=== PATIENT | male | born 1985 | race Two or more races ===

== ENCOUNTER 2017-08-22 19:02 | Inpatient (IN) | payer MEDICAID, OTHER ==
[~2017-08-22] VITALS: Ht 170.2 cm; Wt 118.0 kg
[2017-08-22] MEDS ORDERED: ONDANSETRON 2MG/ML, 2ML ONE (19:23)
[2017-08-22] MEDS ORDERED: FAMOTIDINE 20 MG/2 ML ONE (19:23)
[2017-08-22] MEDS ORDERED: FAMOTIDINE 20 MG/2 ML IVP ONE (19:30)
[2017-08-22] MEDS ORDERED: LORazepam 2 MG/ML, 1ML IVPush ONE ×2 (19:30→21:30)
[2017-08-22] MEDS ORDERED: SODIUM CHLORIDE 0.9% 1,000ML IVBOLUS ONE ×2 (19:30→22:00)
[2017-08-22] MEDS ORDERED: ONDANSETRON 2MG/ML, 2ML IVPush ONE (19:30)
[2017-08-22] MEDS ORDERED: SODIUM CHLORIDE FLUSH 10ML SYR IVF ONE (19:30)
[2017-08-22 19:36] LABS: HEMATOCRIT 36.9 % (39.2-51.8); HEMOGLOBIN 12.4 g/dL (13.7-18.0); WHITE BLOOD COUNT 20.3 x10^3/uL (3.4-10)
[2017-08-22] MEDS ORDERED: LORazepam 2 MG/ML, 1ML ONE ×2 (19:42→22:45)
[2017-08-22 19:46] LABS: ASPARTATE AMINO TRANSFERASE 104 U/L (15-37); BLOOD UREA NITROGEN 7 mg/dL (7-18)
[2017-08-22] MEDS ORDERED: ACETAMINOPHEN 500 MG TABLET ONE (21:21)
[2017-08-22] MEDS ORDERED: LIDOCAINE 1%, 20ML ONE (21:29)
[2017-08-22] MEDS ORDERED: LIDOCAINE 1%, 20ML SQ ONE (21:30)
[2017-08-22] MEDS ORDERED: CEFTRIAXONE PMX 2GM/50ML 50 ML IV ONE (21:30)
[2017-08-22] MEDS ORDERED: ACETAMINOPHEN 500 MG TABLET PO ONE (21:30)
[2017-08-22] MEDS ORDERED: AZITHROMYCIN 500 MG in SODIUM CHLORIDE 0.9% 250 ML IV ONE (21:30)
[2017-08-22] MEDS ORDERED: METRONIDAZOLE PMX 500MG/100ML 100 ML IV ONE (21:30)
[2017-08-22] MEDS ORDERED: ACETAMINOPHEN 325 MG TABLET PO ONE (21:30)
[2017-08-22] MEDS ORDERED: CEFTRIAXONE PMX 2GM/50ML 50 ML ONE (21:33)
[2017-08-22] MEDS ORDERED: OMNIPAQUE 350 MG/ML, 100ML BOTTLE ONE (21:40)
[2017-08-22 22:04] LABS: IS PT STATUS REG ER OR PRE ER? YES
[2017-08-22] MEDS ORDERED: METRONIDAZOLE PMX 500MG/100ML 100 ML ONE (22:26)
[2017-08-22] MEDS: POTASSIUM CHLORIDE 20 MEQ, MAGNESIUM SULFATE 2 GM, THIAMINE 100 MG, MVI ADULT 10 ML, FO... IV SCH (22:41)
[2017-08-22] MEDS ORDERED: LACTATED RINGERS 1,000 ML IV SCH (23:00)
[2017-08-22] MEDS ORDERED: HYDROmorphone 2 MG/ML, 1ML IVPush PRN (23:00)
[2017-08-22] MEDS: HEPARIN 5,000 UNITS/ML, 1ML SQ SCH (23:00)
[2017-08-22] MEDS ORDERED: ONDANSETRON 2MG/ML, 2ML IVPush PRN (23:00)
[2017-08-22] MEDS ORDERED: DIAZEPAM 5 MG/ML, 2ML IV ONE (23:00)
[2017-08-22] MEDS ORDERED: LORazepam 2 MG/ML, 1ML IV PRN ×4 (23:00)
[2017-08-22] MEDS ORDERED: LEVOFLOXACIN/PMX 750MG/150ML 150 ML IV SCH (23:00)
[2017-08-22] MEDS: D5%-0.9% NACL 1,000 ML IV SCH (23:00)
[2017-08-23 02:10] VITALS: BP 141/94
[2017-08-23] MEDS ORDERED: LORazepam 1MG TABLET PO PRN (04:00)
[2017-08-23] MEDS: ACETAMINOPHEN 325 MG TABLET PO PRN ×3 (04:43→16:05)
[2017-08-23 05:57] LABS: HEMATOCRIT 33.1 % (39.2-51.8); HEMOGLOBIN 11.1 g/dL (13.7-18.0); WHITE BLOOD COUNT 17.8 x10^3/uL (3.4-10)
[2017-08-23 06:07] LABS: BLOOD UREA NITROGEN 8 mg/dL (7-18)
[2017-08-23 06:19] LABS: DIFF TOTAL CELLS COUNTED 100 CELL DIFF
[2017-08-23 06:21] LABS: ANISOCYTOSIS 1+; VERIFY COUNTS? YES
[2017-08-23 06:24] LABS: ASPARTATE AMINO TRANSFERASE 86 U/L (15-37)
[2017-08-23 07:25] VITALS: BP 123/70
[2017-08-23 07:58] LABS: RAPID INFLUENZA A Negative (Negative); RAPID INFLUENZA B Negative (Negative)
[2017-08-23] MEDS ORDERED: LIDOCAINE 2%, 20ML ONE (08:02)
[2017-08-23] MEDS: HEPARIN 5,000 UNITS/ML, 1ML SQ SCH ×2 (09:27→17:14)
[2017-08-23] MEDS: D5%-0.9% NACL 1,000 ML IV SCH (14:06)
[2017-08-23 14:10] VITALS: BP 127/73
[2017-08-23] MEDS ORDERED: MAGNESIUM SULFATE PMX 4GM/100M 100 ML IV ONE ×2 (15:30→19:30)
[2017-08-23] MEDS ORDERED: VANCOMYCIN PER PHARMACY MC PRN (15:30)
[2017-08-23] MEDS ORDERED: PHARMACOKINETIC MONITORING MC PRN (15:30)
[2017-08-23 16:04] LABS: CYTOLOGY BODY FLUID RECD INTO PATHOLOGY; CYTOLOGY BODY FLUID SOURCE ASCITES FLUID
[2017-08-23] MEDS: CEFTRIAXONE PMX 2GM/50ML 50 ML IV SCH (16:06)
[2017-08-23] MEDS: VANCOMYCIN 2,000 MG in SODIUM CHLORIDE 0.9% 500 ML IV SCH (17:08)
[2017-08-23 20:00] VITALS: BP 132/92
[2017-08-23] MEDS: LACTULOSE 20 GM/30 ML UDC PO SCH (20:08)
[2017-08-24 02:00] VITALS: BP 126/64
[2017-08-24] MEDS: HEPARIN 5,000 UNITS/ML, 1ML SQ SCH ×3 (02:08→17:54)
[2017-08-24] MEDS: POTASSIUM CHLORIDE 20 MEQ, MAGNESIUM SULFATE 2 GM, THIAMINE 100 MG, MVI ADULT 10 ML, FO... IV SCH (02:08)
[2017-08-24] MEDS: VANCOMYCIN 2,000 MG in SODIUM CHLORIDE 0.9% 500 ML IV SCH ×2 (04:41→16:25)
[2017-08-24 05:00] LABS: HEMATOCRIT 30.6 % (39.2-51.8); HEMOGLOBIN 10.3 g/dL (13.7-18.0); WHITE BLOOD COUNT 11.3 x10^3/uL (3.4-10)
[2017-08-24 05:09] LABS: ASPARTATE AMINO TRANSFERASE 52 U/L (15-37); BLOOD UREA NITROGEN 13 mg/dL (7-18)
[2017-08-24 07:58] VITALS: BP 144/79
[2017-08-24] MEDS: LACTULOSE 20 GM/30 ML UDC PO SCH ×2 (09:00→20:29)
[2017-08-24] MEDS: PHYTONADIONE 5 MG TABLET PO SCH (10:39)
[2017-08-24 12:37] VITALS: BP 147/80
[2017-08-24] MEDS: CEFTRIAXONE PMX 2GM/50ML 50 ML IV SCH (15:29)
[2017-08-24 19:02] VITALS: BP 127/77
[2017-08-24] MEDS: SPIRONOLACTONE 50 MG TABLET PO SCH (20:30)
[2017-08-25] MEDS: HEPARIN 5,000 UNITS/ML, 1ML SQ SCH ×3 (01:00→17:49)
[2017-08-25 01:11] VITALS: BP 133/89
[2017-08-25] MEDS: VANCOMYCIN 2,000 MG in SODIUM CHLORIDE 0.9% 500 ML IV SCH (04:35)
[2017-08-25 04:54] LABS: HEMATOCRIT 32.5 % (39.2-51.8); HEMOGLOBIN 10.9 g/dL (13.7-18.0); WHITE BLOOD COUNT 9.8 x10^3/uL (3.4-10)
[2017-08-25 05:10] LABS: ASPARTATE AMINO TRANSFERASE 55 U/L (15-37); BLOOD UREA NITROGEN 13 mg/dL (7-18)
[2017-08-25 07:46] VITALS: BP 139/87
[2017-08-25] MEDS: SPIRONOLACTONE 50 MG TABLET PO SCH ×2 (08:11→19:47)
[2017-08-25] MEDS: THIAMINE 100MG TABLET PO SCH (08:11)
[2017-08-25] MEDS: PHYTONADIONE 5 MG TABLET PO SCH (08:11)
[2017-08-25] MEDS: LACTULOSE 20 GM/30 ML UDC PO SCH ×2 (08:12→19:47)
[2017-08-25] MEDS: FOLIC ACID 1 MG TABLET PO SCH (08:12)
[2017-08-25] MEDS: CEFAZOLIN PMX 2GM/50ML 50 ML IVPB SCH ×2 (11:17→19:47)
[2017-08-25 14:11] VITALS: BP 139/87
[2017-08-25] MEDS ORDERED: OMNIPAQUE 350 MG/ML, 100ML BOTTLE ONE (14:26)
[2017-08-25 19:40] VITALS: BP 133/84
[2017-08-26] MEDS: HEPARIN 5,000 UNITS/ML, 1ML SQ SCH ×3 (01:37→17:58)
[2017-08-26 02:00] VITALS: BP 139/87
[2017-08-26] MEDS: CEFAZOLIN PMX 2GM/50ML 50 ML IVPB SCH (04:06)
[2017-08-26] MEDS: SPIRONOLACTONE 50 MG TABLET PO SCH ×2 (09:00→20:44)
[2017-08-26] MEDS: PHYTONADIONE 5 MG TABLET PO SCH (09:16)
[2017-08-26] MEDS: THIAMINE 100MG TABLET PO SCH (09:16)
[2017-08-26] MEDS: LACTULOSE 20 GM/30 ML UDC PO SCH ×2 (09:16→20:55)
[2017-08-26] MEDS: FOLIC ACID 1 MG TABLET PO SCH (09:16)
[2017-08-26 09:51] VITALS: BP 135/90
[2017-08-26] MEDS: CEFAZOLIN PMX 2GM/50ML 50 ML IV SCH ×2 (13:28→20:44)
[2017-08-26 16:07] VITALS: BP 171/96
[2017-08-26 16:16] VITALS: BP 154/98
[2017-08-26] MEDS: GUAIFENESIN 200 MG TABLET PO SCH ×2 (17:58→20:44)
[2017-08-26 20:00] VITALS: BP 143/88
[2017-08-27] MEDS: HEPARIN 5,000 UNITS/ML, 1ML SQ SCH ×3 (01:27→18:10)
[2017-08-27 01:28] VITALS: BP 149/73
[2017-08-27] MEDS: GUAIFENESIN 200 MG TABLET PO SCH ×4 (05:14→21:06)
[2017-08-27] MEDS: CEFAZOLIN PMX 2GM/50ML 50 ML IV SCH ×3 (05:14→21:06)
[2017-08-27 05:43] LABS: HEMATOCRIT 32.2 % (39.2-51.8); HEMOGLOBIN 10.8 g/dL (13.7-18.0); WHITE BLOOD COUNT 7.2 x10^3/uL (3.4-10)
[2017-08-27 06:03] LABS: ASPARTATE AMINO TRANSFERASE 70 U/L (15-37); BLOOD UREA NITROGEN 10 mg/dL (7-18)
[2017-08-27 07:03] VITALS: BP 151/97
[2017-08-27] MEDS ORDERED: POTASSIUM CHLORIDE 20 MEQ TAB.ER.PRT PO ONE (08:30)
[2017-08-27] MEDS: SPIRONOLACTONE 50 MG TABLET PO SCH ×2 (09:00→21:00)
[2017-08-27] MEDS: LACTULOSE 20 GM/30 ML UDC PO SCH ×2 (09:28→21:07)
[2017-08-27] MEDS: THIAMINE 100MG TABLET PO SCH (09:28)
[2017-08-27] MEDS: FOLIC ACID 1 MG TABLET PO SCH (09:28)
[2017-08-27 12:57] VITALS: BP 151/92
[2017-08-27 19:40] VITALS: BP 151/100
[2017-08-27 19:59] VITALS: BP 145/90
[2017-08-28] MEDS: HEPARIN 5,000 UNITS/ML, 1ML SQ SCH ×3 (02:05→17:17)
[2017-08-28 02:34] VITALS: BP 119/70
[2017-08-28] MEDS: CEFAZOLIN PMX 2GM/50ML 50 ML IV SCH ×3 (05:30→21:22)
[2017-08-28] MEDS: GUAIFENESIN 200 MG TABLET PO SCH ×4 (05:34→21:21)
[2017-08-28 05:39] LABS: BLOOD UREA NITROGEN 8 mg/dL (7-18)
[2017-08-28] MEDS ORDERED: MAGNESIUM SULFATE PMX 2GM/50ML 50 ML IV ONE (07:00)
[2017-08-28 07:47] VITALS: BP 136/89
[2017-08-28] MEDS: FUROSEMIDE 40 MG TABLET PO SCH (07:56)
[2017-08-28] MEDS: FOLIC ACID 1 MG TABLET PO SCH (07:56)
[2017-08-28] MEDS: THIAMINE 100MG TABLET PO SCH (07:56)
[2017-08-28] MEDS: LACTULOSE 20 GM/30 ML UDC PO SCH ×2 (07:57→21:21)
[2017-08-28] MEDS: SPIRONOLACTONE 50 MG TABLET PO SCH ×2 (07:58→21:00)
[2017-08-28 12:42] VITALS: BP 149/79
[2017-08-28 20:00] VITALS: BP 150/91
[2017-08-29 02:00] VITALS: BP 135/71
[2017-08-29] MEDS: GUAIFENESIN 200 MG TABLET PO SCH ×4 (05:03→22:32)
[2017-08-29] MEDS: CEFAZOLIN PMX 2GM/50ML 50 ML IV SCH ×3 (05:03→22:33)
[2017-08-29] MEDS: HEPARIN 5,000 UNITS/ML, 1ML SQ SCH ×3 (05:03→22:33)
[2017-08-29 07:49] VITALS: BP 133/83
[2017-08-29] MEDS: SPIRONOLACTONE 50 MG TABLET PO SCH ×2 (09:00→22:33)
[2017-08-29 09:03] LABS: ASPARTATE AMINO TRANSFERASE 81 U/L (15-37); BLOOD UREA NITROGEN 7 mg/dL (7-18)
[2017-08-29] MEDS: THIAMINE 100MG TABLET PO SCH (09:53)
[2017-08-29] MEDS: FOLIC ACID 1 MG TABLET PO SCH (09:53)
[2017-08-29] MEDS: LACTULOSE 20 GM/30 ML UDC PO SCH ×2 (09:54→22:32)
[2017-08-29] MEDS: FUROSEMIDE 40 MG TABLET PO SCH (09:54)
[2017-08-29 14:00] VITALS: BP 167/103
[2017-08-30 02:45] VITALS: BP 136/66
[2017-08-30 05:21] LABS: HEMATOCRIT 32.7 % (39.2-51.8)
[2017-08-30 05:29] LABS: ASPARTATE AMINO TRANSFERASE 76 U/L (15-37); BLOOD UREA NITROGEN 7 mg/dL (7-18)
[2017-08-30] MEDS: HEPARIN 5,000 UNITS/ML, 1ML SQ SCH ×3 (05:36→21:14)
[2017-08-30] MEDS: CEFAZOLIN PMX 2GM/50ML 50 ML IV SCH ×3 (05:36→21:14)
[2017-08-30] MEDS: GUAIFENESIN 200 MG TABLET PO SCH ×4 (05:36→21:14)
[2017-08-30 08:00] VITALS: BP 147/91
[2017-08-30] MEDS: FOLIC ACID 1 MG TABLET PO SCH (10:08)
[2017-08-30] MEDS: LACTULOSE 20 GM/30 ML UDC PO SCH ×2 (10:08→21:14)
[2017-08-30] MEDS: FUROSEMIDE 40 MG TABLET PO SCH (10:08)
[2017-08-30] MEDS: THIAMINE 100MG TABLET PO SCH (10:09)
[2017-08-30] MEDS: SPIRONOLACTONE 50 MG TABLET PO SCH ×2 (10:09→21:00)
[2017-08-30 14:00] VITALS: BP 140/90
[2017-08-30 20:15] VITALS: BP 135/86
[2017-08-31 00:48] VITALS: BP 151/91
[2017-08-31] MEDS: GUAIFENESIN 200 MG TABLET PO SCH ×4 (04:59→21:06)
[2017-08-31] MEDS: CEFAZOLIN PMX 2GM/50ML 50 ML IV SCH ×3 (04:59→21:06)
[2017-08-31] MEDS: HEPARIN 5,000 UNITS/ML, 1ML SQ SCH ×3 (04:59→21:00)
[2017-08-31 06:21] LABS: HEMATOCRIT 32.1 % (39.2-51.8); HEMOGLOBIN 10.7 g/dL (13.7-18.0); WHITE BLOOD COUNT 8.3 x10^3/uL (3.4-10)
[2017-08-31 06:34] LABS: ASPARTATE AMINO TRANSFERASE 68 U/L (15-37); BLOOD UREA NITROGEN 7 mg/dL (7-18)
[2017-08-31 08:30] VITALS: BP 137/80
[2017-08-31] MEDS ORDERED: POTASSIUM CHLORIDE 20 MEQ TAB.ER.PRT PO ONE (08:30)
[2017-08-31] MEDS: FOLIC ACID 1 MG TABLET PO SCH (08:38)
[2017-08-31] MEDS: THIAMINE 100MG TABLET PO SCH (08:38)
[2017-08-31] MEDS: LACTULOSE 20 GM/30 ML UDC PO SCH ×2 (08:38→21:00)
[2017-08-31] MEDS: FUROSEMIDE 40 MG TABLET PO SCH (08:39)
[2017-08-31] MEDS: SPIRONOLACTONE 50 MG TABLET PO SCH ×2 (08:39→21:00)
[2017-08-31] MEDS ORDERED: MAGNESIUM SULFATE PMX 4GM/100M 100 ML IV ONE (13:00)
[2017-08-31 14:45] VITALS: BP 148/84
[2017-08-31 19:23] VITALS: BP 150/92
[2017-09-01] MEDS: HEPARIN 5,000 UNITS/ML, 1ML SQ SCH ×3 (05:00→20:16)
[2017-09-01 05:34] LABS: BLOOD UREA NITROGEN 7 mg/dL (7-18)
[2017-09-01 05:37] VITALS: BP 136/87
[2017-09-01] MEDS: GUAIFENESIN 200 MG TABLET PO SCH ×4 (06:02→20:17)
[2017-09-01] MEDS: CEFAZOLIN PMX 2GM/50ML 50 ML IV SCH ×3 (06:03→20:16)
[2017-09-01 07:27] VITALS: BP 145/79
[2017-09-01] MEDS: SPIRONOLACTONE 50 MG TABLET PO SCH ×2 (09:00→20:17)
[2017-09-01] MEDS: FUROSEMIDE 40 MG TABLET PO SCH (09:29)
[2017-09-01] MEDS: THIAMINE 100MG TABLET PO SCH (09:29)
[2017-09-01] MEDS: LACTULOSE 20 GM/30 ML UDC PO SCH ×2 (09:29→20:16)
[2017-09-01] MEDS: FOLIC ACID 1 MG TABLET PO SCH (09:29)
[2017-09-01 10:46] LABS: PATH.CAST-FLAG NOT PRESENT; SPERM-FLAG NOT PRESENT; SRC-FLAG NOT PRESENT; XTAL-FLAG NOT PRESENT; YLC-FLAG NOT PRESENT
[2017-09-01 13:31] VITALS: BP 133/83
[2017-09-01 19:35] VITALS: BP 138/85
[2017-09-02 03:59] VITALS: BP 123/83
[2017-09-02] MEDS: GUAIFENESIN 200 MG TABLET PO SCH ×4 (05:33→21:17)
[2017-09-02] MEDS: HEPARIN 5,000 UNITS/ML, 1ML SQ SCH ×3 (05:33→21:18)
[2017-09-02] MEDS: CEFAZOLIN PMX 2GM/50ML 50 ML IV SCH ×3 (05:33→21:21)
[2017-09-02 06:45] VITALS: BP 138/83
[2017-09-02] MEDS: SPIRONOLACTONE 50 MG TABLET PO SCH ×2 (09:00→21:17)
[2017-09-02] MEDS: FOLIC ACID 1 MG TABLET PO SCH (10:22)
[2017-09-02] MEDS: FUROSEMIDE 40 MG TABLET PO SCH (10:22)
[2017-09-02] MEDS: THIAMINE 100MG TABLET PO SCH (10:23)
[2017-09-02] MEDS: LACTULOSE 20 GM/30 ML UDC PO SCH ×2 (10:24→21:16)
[2017-09-02 12:20] VITALS: BP 123/84
[2017-09-02 21:34] VITALS: BP 139/82
[2017-09-03 04:00] VITALS: BP 140/71
[2017-09-03] MEDS: HEPARIN 5,000 UNITS/ML, 1ML SQ SCH ×3 (05:35→22:57)
[2017-09-03] MEDS: GUAIFENESIN 200 MG TABLET PO SCH ×4 (05:35→22:56)
[2017-09-03] MEDS: CEFAZOLIN PMX 2GM/50ML 50 ML IV SCH ×3 (05:36→22:55)
[2017-09-03 08:34] VITALS: BP 145/84
[2017-09-03] MEDS: SPIRONOLACTONE 50 MG TABLET PO SCH ×2 (09:00→22:00)
[2017-09-03] MEDS: FUROSEMIDE 40 MG TABLET PO SCH (09:56)
[2017-09-03] MEDS: THIAMINE 100MG TABLET PO SCH (09:56)
[2017-09-03] MEDS: LACTULOSE 20 GM/30 ML UDC PO SCH ×2 (09:56→22:57)
[2017-09-03] MEDS: FOLIC ACID 1 MG TABLET PO SCH (09:56)
[2017-09-03 14:57] VITALS: BP 142/91
[2017-09-03 21:38] VITALS: BP 135/82
[2017-09-04 02:31] VITALS: BP 154/85
[2017-09-04] MEDS: GUAIFENESIN 200 MG TABLET PO SCH ×4 (05:05→22:31)
[2017-09-04 05:24] LABS: HEMATOCRIT 33.5 % (39.2-51.8); HEMOGLOBIN 11.1 g/dL (13.7-18.0); WHITE BLOOD COUNT 11.2 x10^3/uL (3.4-10)
[2017-09-04 05:41] LABS: ASPARTATE AMINO TRANSFERASE 67 U/L (15-37); BLOOD UREA NITROGEN 7 mg/dL (7-18)
[2017-09-04 07:05] VITALS: BP 128/65
[2017-09-04] MEDS: CEFAZOLIN PMX 2GM/50ML 50 ML IV SCH ×3 (07:38→23:14)
[2017-09-04] MEDS: HEPARIN 5,000 UNITS/ML, 1ML SQ SCH ×3 (07:38→23:00)
[2017-09-04] MEDS: FUROSEMIDE 40 MG TABLET PO SCH (07:38)
[2017-09-04] MEDS: FOLIC ACID 1 MG TABLET PO SCH (08:31)
[2017-09-04] MEDS: SPIRONOLACTONE 50 MG TABLET PO SCH ×2 (08:31→22:31)
[2017-09-04] MEDS: THIAMINE 100MG TABLET PO SCH (08:31)
[2017-09-04] MEDS: LACTULOSE 20 GM/30 ML UDC PO SCH ×2 (08:31→22:31)
[2017-09-04 14:35] VITALS: BP 144/86
[2017-09-04 19:09] VITALS: BP 144/88
[2017-09-05 01:02] VITALS: BP 135/84
[2017-09-05] MEDS: ACETAMINOPHEN 325 MG TABLET PO PRN (03:33)
[2017-09-05] MEDS: GUAIFENESIN 200 MG TABLET PO SCH ×2 (05:52→11:42)
[2017-09-05] MEDS: FOLIC ACID 1 MG TABLET PO SCH (07:28)
[2017-09-05] MEDS: FUROSEMIDE 40 MG TABLET PO SCH (07:28)
[2017-09-05] MEDS: THIAMINE 100MG TABLET PO SCH (07:28)
[2017-09-05] MEDS: HEPARIN 5,000 UNITS/ML, 1ML SQ SCH (07:28)
[2017-09-05] MEDS: LACTULOSE 20 GM/30 ML UDC PO SCH (07:29)
[2017-09-05] MEDS: SPIRONOLACTONE 50 MG TABLET PO SCH (07:29)
[2017-09-05] MEDS ORDERED: CEFTRIAXONE PMX 2GM/50ML 50 ML IV SCH (07:30)
[2017-09-05] MEDS ORDERED: LACT20SO13 PO (08:01)
[2017-09-05] MEDS ORDERED: CEPH-368 PO (08:01)
[2017-09-05] MEDS ORDERED: SPIR50TA PO (08:01)
[2017-09-05] MEDS ORDERED: THIA100T6 PO (08:01)
[2017-09-05] MEDS ORDERED: FURO-93 PO (08:03)
[2017-09-05 08:14] VITALS: BP 127/81
[2017-09-05] MEDS ORDERED: MAGNESIUM SULFATE PMX 4GM/100M 100 ML IV ONE (08:30)
[2017-09-05 13:00] VITALS: BP 129/80
== END 2017-09-05 14:48 | disposition home or self-care (01) | DRG 871 ==
LOC: ED 22:06 → EDIP 22:23 → SUATTDRO 22:39 → 4WST 08-23 01:19 → DCLOUNGE 09-05 14:44
PROVIDERS: ADMIT Hospitalist; ATTEND Hospitalist
PROC: 0W9B3ZZ Drainage of Left Pleural Cavity, Percutaneous Approach (ICD-10-PCS; 2017-08-22)
PROC: 0W9G3ZZ Drainage of Peritoneal Cavity, Percutaneous Approach (ICD-10-PCS; principal; 2017-08-23)
DX: A40.3 Sepsis due to Streptococcus pneumoniae (principal); K65.2 Spontaneous bacterial peritonitis; J96.01 Acute respiratory failure with hypoxia; E43 Unspecified severe protein-calorie malnutrition; R65.20 Severe sepsis without septic shock; F10.231 Alcohol dependence with withdrawal delirium; J90 Pleural effusion, not elsewhere classified; D68.9 Coagulation defect, unspecified; E83.42 Hypomagnesemia; J15.9 Unspecified bacterial pneumonia; Z68.41 Body mass index [BMI] 40.0-44.9, adult; J98.11 Atelectasis; K76.6 Portal hypertension; D69.59 Other secondary thrombocytopenia; D63.8 Anemia in other chronic diseases classified elsewhere; E87.6 Hypokalemia; G47.30 Sleep apnea, unspecified; K21.9 Gastro-esophageal reflux disease without esophagitis; K43.9 Ventral hernia without obstruction or gangrene; K70.11 Alcoholic hepatitis with ascites; K70.31 Alcoholic cirrhosis of liver with ascites; Z87.01 Personal history of pneumonia (recurrent)
CPT/HCPCS: 32554; 36415; 49083; 71010; 71260; 74177; 76700; 80048; 80053; 80074; 81001; 82040; 82042; 82105; 82140; 82945; 83605; 83615; 83690; 83735; 83986; 84100; 84145; 84157; 84484; 85025; 85610; 85730; 87015; 87040; 87070; 87086; 87116; 87181; 87205; 87206; 87324; 87400; 89051; 93005; 93306; 93922; 96361; 96365; 96367; 96372; 96375; 96376; J0456; J0690; J0696; J1644; J2405; J3370; J3411; J3475; J3480; J3490; J7042; Q9967; J2060; J7030; J7040; J7050; S0028

== ENCOUNTER 2018-02-18 21:56 | Emergency (ER) | payer SELFPAY ==
[~2018-02-18] VITALS: Ht 170.2 cm; Wt 113.3 kg
[~2018-02-18 21:56] MED LIST: CEPH-368 PO; FURO-93 PO; LACT20SO13 PO; SPIR50TA PO; THIA100T6 PO
[2018-02-18] MEDS ORDERED: SODIUM CHLORIDE 0.9% 1,000ML IVBOLUS ONE (23:00)
[2018-02-18] MEDS ORDERED: ACETAMINOPHEN 325 MG TABLET PO ONE (23:00)
[2018-02-18] MEDS ORDERED: SODIUM CHLORIDE FLUSH 10ML SYR IVF ONE (23:00)
[2018-02-18] MEDS ORDERED: ACETAMINOPHEN 325 MG TABLET ONE (23:12)
[2018-02-18 23:19] LABS: BASOPHILS # (AUTO) 0.04 x10^3/uL (0-0.1); BASOPHILS % (AUTO) 0 % (0-1); EOSINOPHILS # (AUTO) 0.23 x10^3/uL (0-0.4); EOSINOPHILS % (AUTO) 2 % (1-7); LYMPHOCYTES # (AUTO) 1.28 x10^3/uL (1-3.4); LYMPHOCYTES % (AUTO) 13 % (22-44); MD NO; MEAN CORPUSCULAR HEMOGLOBIN 28.8 pg (27.5-34.5); MEAN CORPUSCULAR HGB CONC 33.3 g/dL (33.2-36.2); MEAN CORPUSCULAR VOLUME 86.6 fL (81-97); MEAN PLATELET VOLUME 8.9 fL (7.4-10.4); MONOCYTES # (AUTO) 0.74 x10^3/uL (0.2-0.8); MONOCYTES % (AUTO) 8 % (2-9); NEUTROPHILS # (AUTO) 7.42 x10^3/uL (1.8-6.8); NEUTROPHILS % (AUTO) 76 % (42-75); PLATELET COUNT 104 x10^3/uL (130-400); RED BLOOD COUNT 3.59 x10^6/uL (4.38-5.82); RED CELL DISTRIBUTION WIDTH 17.1 % (9.4-14.8)
[2018-02-18 23:27] LABS: INTERNATIONAL NORMALIZED RATIO 1.17 (0.93-1.1)
[2018-02-18 23:29] LABS: ALANINE AMINOTRANSFERASE 25 U/L (12-78); ALBUMIN 1.9 g/dL (3.4-5.0); ANION GAP 10 mmol/L (5-15); CALCIUM 7.3 mg/dL (8.5-10.1); CHLORIDE 103 mmol/L (98-107)
[2018-02-18 23:34] LABS: ALKALINE PHOSPHATASE 191 U/L (45-117); BILIRUBIN,TOTAL 0.9 mg/dL (0.2-1.0); CREATININE 1.03 mg/dL (0.7-1.3); TOTAL PROTEIN 5.7 g/dL (6.4-8.2); TROPONIN I < 0.015 ng/mL (0.000-0.045)
[2018-02-19] MEDS ORDERED: LIDOCAINE-MPF 2% ,5ML ONE (00:09)
[2018-02-19 01:24] LABS: MICROSCOPIC INDICATED
[2018-02-19 01:25] LABS: CULTURE INDICATED? YES
[2018-02-19] MEDS ORDERED: CEFTRIAXONE PMX 1GM/50ML 50 ML IV ONE (02:00)
[2018-02-19] MEDS ORDERED: CEFTRIAXONE PMX 1GM/50ML 50 ML ONE (02:43)
[2018-02-19 03:22] VITALS: BP 122/78
== END 2018-02-19 03:23 | disposition home or self-care (01) ==
LOC: ED 23:59
DX: N30.91 Cystitis, unspecified with hematuria (principal); K70.31 Alcoholic cirrhosis of liver with ascites; J15.9 Unspecified bacterial pneumonia
CPT/HCPCS: 36415; 49083; 71046; 80053; 81001; 82042; 83605; 83615; 84145; 84484; 85025; 85610; 85730; 87040; 87070; 87086; 87205; 89051; 93005; 96365; 99285; J0696; J7030

== ENCOUNTER 2018-06-16 00:04 | Inpatient (IN) | payer MEDICAID, OTHER ==
[~2018-06-16] VITALS: Ht 170.2 cm; Wt 104.1 kg
[~2018-06-16 00:04] MED LIST changes: -THIA100T6 PO; +THIA100T67 PO
[2018-06-16 00:42] LABS: BASOPHILS % (AUTO) 1 % (0-1); EOSINOPHILS # (AUTO) 0.58 x10^3/uL (0-0.4); EOSINOPHILS % (AUTO) 4 % (1-7); LYMPHOCYTES # (AUTO) 1.33 x10^3/uL (1-3.4); LYMPHOCYTES % (AUTO) 8 % (22-44); MD NO; MEAN CORPUSCULAR HEMOGLOBIN 30.6 pg (27.5-34.5); MEAN CORPUSCULAR HGB CONC 33.9 g/dL (33.2-36.2); MEAN CORPUSCULAR VOLUME 90.1 fL (81-97); MONOCYTES # (AUTO) 1.03 x10^3/uL (0.2-0.8); MONOCYTES % (AUTO) 6 % (2-9); NEUTROPHILS # (AUTO) 13.04 x10^3/uL (1.8-6.8); NEUTROPHILS % (AUTO) 81 % (42-75); PLATELET COUNT 183 x10^3/uL (130-400); RED BLOOD COUNT 2.95 x10^6/uL (4.38-5.82); RED CELL DISTRIBUTION WIDTH 19.1 % (9.4-14.8)
[2018-06-16 00:52] LABS: INTERNATIONAL NORMALIZED RATIO 1.18 (0.93-1.1); PROTHROMBIN TIME 12.2 Seconds (9.6-11.5)
[2018-06-16 00:54] LABS: ALANINE AMINOTRANSFERASE 23 U/L (12-78); ALBUMIN 1.7 g/dL (3.4-5.0); ANION GAP 10 mmol/L (5-15); CALCIUM 7.1 mg/dL (8.5-10.1); CHLORIDE 104 mmol/L (98-107)
[2018-06-16 00:57] LABS: ALKALINE PHOSPHATASE 194 U/L (45-117); BILIRUBIN,TOTAL 1.7 mg/dL (0.2-1.0); CREATININE 1.22 mg/dL (0.7-1.3); TOTAL PROTEIN 5.5 g/dL (6.4-8.2)
[2018-06-16] MEDS ORDERED: AMPICILLIN/SULBACTAM 3 GM in SODIUM CHLORIDE 0.9% 100 ML IV ONE (01:00)
[2018-06-16] MEDS ORDERED: FUROSEMIDE 40 MG/4 ML IV ONE (01:30)
[2018-06-16] MEDS ORDERED: FUROSEMIDE 20 MG/2 ML ONE (01:44)
[2018-06-16 02:12] VITALS: BP 136/78
[2018-06-16] MEDS ORDERED: SODIUM CHLORIDE 0.9% 1,000 ML IV SCH (03:18)
[2018-06-16] MEDS ORDERED: ONDANSETRON ODT 4 MG PO PRN (03:30)
[2018-06-16] MEDS ORDERED: POTASSIUM CHLORIDE 20 MEQ TAB.ER.PRT PO ONE (03:30)
[2018-06-16] MEDS ORDERED: ONDANSETRON 2MG/ML, 2ML IVPush PRN (03:30)
[2018-06-16] MEDS ORDERED: ACETAMINOPHEN 325 MG TABLET PO PRN (03:30)
[2018-06-16] MEDS: HEPARIN 5,000 UNITS/ML, 1ML SQ SCH ×3 (03:54→20:01)
[2018-06-16] MEDS: ALBUMIN HUMAN 25% 50 ML IV SCH ×3 (04:10→20:01)
[2018-06-16 06:05] LABS: BASOPHILS # (AUTO) 0.04 x10^3/uL (0-0.1); BASOPHILS % (AUTO) 0 % (0-1); EOSINOPHILS # (AUTO) 0.62 x10^3/uL (0-0.4); EOSINOPHILS % (AUTO) 4 % (1-7); LYMPHOCYTES # (AUTO) 1.41 x10^3/uL (1-3.4); LYMPHOCYTES % (AUTO) 10 % (22-44); MD NO; MEAN CORPUSCULAR HEMOGLOBIN 29.8 pg (27.5-34.5); MEAN CORPUSCULAR HGB CONC 33.8 g/dL (33.2-36.2); MEAN CORPUSCULAR VOLUME 88.1 fL (81-97); MEAN PLATELET VOLUME 7.9 fL (7.4-10.4); MONOCYTES # (AUTO) 0.87 x10^3/uL (0.2-0.8); MONOCYTES % (AUTO) 6 % (2-9); NEUTROPHILS # (AUTO) 11.18 x10^3/uL (1.8-6.8); NEUTROPHILS % (AUTO) 79 % (42-75); PLATELET COUNT 183 x10^3/uL (130-400); RED BLOOD COUNT 2.96 x10^6/uL (4.38-5.82); RED CELL DISTRIBUTION WIDTH 18.9 % (9.4-14.8)
[2018-06-16 06:13] LABS: ALANINE AMINOTRANSFERASE 19 U/L (12-78); ALBUMIN 1.8 g/dL (3.4-5.0); ANION GAP 10 mmol/L (5-15); CALCIUM 7.3 mg/dL (8.5-10.1); CHLORIDE 106 mmol/L (98-107); CREATININE 1.12 mg/dL (0.7-1.3)
[2018-06-16 06:15] LABS: ALKALINE PHOSPHATASE 177 U/L (45-117); BILIRUBIN,TOTAL 2.1 mg/dL (0.2-1.0); TOTAL PROTEIN 5.5 g/dL (6.4-8.2)
[2018-06-16 07:51] VITALS: BP 125/76
[2018-06-16] MEDS ORDERED: FUROSEMIDE 40 MG/4 ML IV SCH (09:00)
[2018-06-16] MEDS ORDERED: SPIRONOLACTONE 100 MG TABLET PO SCH (09:00)
[2018-06-16] MEDS ORDERED: CEFTRIAXONE 1,000 MG in SODIUM CHLORIDE 0.9% 50 ML IV SCH (09:00)
[2018-06-16] MEDS ORDERED: LACTULOSE 20 GM/30 ML UDC PO SCH (09:00)
[2018-06-16] MEDS ORDERED: LIDOCAINE 1%, 50ML IV ONE (12:33)
[2018-06-16 14:50] VITALS: BP 124/77
[2018-06-16 15:54] LABS: CELLS COUNTED 165
[2018-06-16 20:25] VITALS: BP 112/65
[2018-06-17 01:18] VITALS: BP 100/56
[2018-06-17] MEDS: HEPARIN 5,000 UNITS/ML, 1ML SQ SCH ×3 (05:00→19:49)
[2018-06-17 05:12] LABS: BASOPHILS # (AUTO) 0.07 x10^3/uL (0-0.1); BASOPHILS % (AUTO) 1 % (0-1); EOSINOPHILS # (AUTO) 0.42 x10^3/uL (0-0.4); EOSINOPHILS % (AUTO) 3 % (1-7); LYMPHOCYTES # (AUTO) 1.47 x10^3/uL (1-3.4); LYMPHOCYTES % (AUTO) 12 % (22-44); MD NO; MEAN CORPUSCULAR HEMOGLOBIN 30.6 pg (27.5-34.5); MEAN CORPUSCULAR HGB CONC 33.8 g/dL (33.2-36.2); MEAN CORPUSCULAR VOLUME 90.6 fL (81-97); MEAN PLATELET VOLUME 8.4 fL (7.4-10.4); MONOCYTES # (AUTO) 0.72 x10^3/uL (0.2-0.8); MONOCYTES % (AUTO) 6 % (2-9); NEUTROPHILS # (AUTO) 9.69 x10^3/uL (1.8-6.8); NEUTROPHILS % (AUTO) 78 % (42-75); PLATELET COUNT 162 x10^3/uL (130-400); RED BLOOD COUNT 2.82 x10^6/uL (4.38-5.82); RED CELL DISTRIBUTION WIDTH 19.1 % (9.4-14.8)
[2018-06-17 05:14] LABS: INTERNATIONAL NORMALIZED RATIO 1.21 (0.93-1.1); PROTHROMBIN TIME 12.5 Seconds (9.6-11.5)
[2018-06-17 05:19] LABS: ALBUMIN 1.8 g/dL (3.4-5.0); ANION GAP 8 mmol/L (5-15); CALCIUM 6.7 mg/dL (8.5-10.1); CHLORIDE 109 mmol/L (98-107)
[2018-06-17 05:22] LABS: ALANINE AMINOTRANSFERASE 19 U/L (12-78); ALKALINE PHOSPHATASE 174 U/L (45-117); BILIRUBIN,TOTAL 1.7 mg/dL (0.2-1.0); CREATININE 0.88 mg/dL (0.7-1.3); TOTAL PROTEIN 5.1 g/dL (6.4-8.2)
[2018-06-17 06:51] VITALS: BP 115/69
[2018-06-17] MEDS: CEFTRIAXONE PMX 1GM/50ML 50 ML IV SCH (10:15)
[2018-06-17] MEDS ORDERED: SPIRONOLACTONE 25 MG TABLET PO SCH (10:30)
[2018-06-17] MEDS ORDERED: FUROSEMIDE 20 MG TABLET PO SCH (10:30)
[2018-06-17 13:43] VITALS: BP 129/78
[2018-06-17 21:11] VITALS: BP 110/70
[2018-06-18 02:15] VITALS: BP 120/70
[2018-06-18] MEDS: HEPARIN 5,000 UNITS/ML, 1ML SQ SCH ×3 (03:30→19:48)
[2018-06-18 05:22] LABS: CHLORIDE 109 mmol/L (98-107)
[2018-06-18 05:32] LABS: ALANINE AMINOTRANSFERASE 21 U/L (12-78); ALBUMIN 1.8 g/dL (3.4-5.0); ALKALINE PHOSPHATASE 164 U/L (45-117); ANION GAP 8 mmol/L (5-15); BILIRUBIN,TOTAL 1.5 mg/dL (0.2-1.0); CALCIUM 7.7 mg/dL (8.5-10.1); CREATININE 0.77 mg/dL (0.7-1.3); TOTAL PROTEIN 5.1 g/dL (6.4-8.2)
[2018-06-18] MEDS ORDERED: PROPRANOLOL 20 MG TABLET PO SCH (06:30)
[2018-06-18 06:53] VITALS: BP 114/67
[2018-06-18] MEDS: CEFTRIAXONE PMX 1GM/50ML 50 ML IV SCH (09:20)
[2018-06-18] MEDS: FUROSEMIDE 40 MG TABLET PO SCH (09:22)
[2018-06-18] MEDS: SPIRONOLACTONE 100 MG TABLET PO SCH (09:22)
[2018-06-18 13:24] VITALS: BP 123/73
[2018-06-18] MEDS ORDERED: LIDOCAINE-MPF 2%, 2ML ONE (13:56)
[2018-06-18 14:24] VITALS: BP 120/75
[2018-06-18 19:34] VITALS: BP 128/68
[2018-06-19 02:34] VITALS: BP 110/68
[2018-06-19] MEDS: HEPARIN 5,000 UNITS/ML, 1ML SQ SCH (03:20)
[2018-06-19 05:37] LABS: BASOPHILS # (AUTO) 0.05 x10^3/uL (0-0.1); BASOPHILS % (AUTO) 0 % (0-1); EOSINOPHILS # (AUTO) 0.41 x10^3/uL (0-0.4); EOSINOPHILS % (AUTO) 4 % (1-7); LYMPHOCYTES # (AUTO) 1.48 x10^3/uL (1-3.4); LYMPHOCYTES % (AUTO) 13 % (22-44); MD NO; MEAN CORPUSCULAR HEMOGLOBIN 30.2 pg (27.5-34.5); MEAN CORPUSCULAR HGB CONC 33.7 g/dL (33.2-36.2); MEAN CORPUSCULAR VOLUME 89.8 fL (81-97); MEAN PLATELET VOLUME 8.4 fL (7.4-10.4); MONOCYTES # (AUTO) 0.54 x10^3/uL (0.2-0.8); MONOCYTES % (AUTO) 5 % (2-9); NEUTROPHILS # (AUTO) 9.21 x10^3/uL (1.8-6.8); NEUTROPHILS % (AUTO) 79 % (42-75); PLATELET COUNT 165 x10^3/uL (130-400); RED BLOOD COUNT 2.96 x10^6/uL (4.38-5.82); RED CELL DISTRIBUTION WIDTH 20.5 % (9.4-14.8)
[2018-06-19 05:47] LABS: INTERNATIONAL NORMALIZED RATIO 1.17 (0.93-1.1)
[2018-06-19 05:49] LABS: ALBUMIN 1.7 g/dL (3.4-5.0); ANION GAP 8 mmol/L (5-15); CALCIUM 7.9 mg/dL (8.5-10.1); CHLORIDE 108 mmol/L (98-107)
[2018-06-19 05:53] LABS: ALANINE AMINOTRANSFERASE 24 U/L (12-78); ALKALINE PHOSPHATASE 166 U/L (45-117); BILIRUBIN,TOTAL 1.2 mg/dL (0.2-1.0); CREATININE 0.89 mg/dL (0.7-1.3); TOTAL PROTEIN 5.1 g/dL (6.4-8.2)
[2018-06-19] MEDS ORDERED: PROPRANOLOL 20 MG TABLET PO SCH (06:30)
[2018-06-19 06:56] VITALS: BP 125/71
[2018-06-19] MEDS: CEFTRIAXONE PMX 1GM/50ML 50 ML IV SCH (08:44)
[2018-06-19] MEDS: SPIRONOLACTONE 100 MG TABLET PO SCH (08:44)
[2018-06-19] MEDS: FUROSEMIDE 40 MG TABLET PO SCH (08:44)
[2018-06-19] MEDS ORDERED: SPIR100T PO (09:02)
[2018-06-19] MEDS ORDERED: PROP20TA PO (09:02)
[2018-06-19] MEDS ORDERED: CEPH-368 PO (09:02)
[2018-06-19] MEDS ORDERED: FURO40TA6 PO (09:02)
== END 2018-06-19 11:24 | disposition home or self-care (01) | DRG 432 ==
LOC: ED 00:31 → EDIP 01:10 → 3NE 02:08 → DCLOUNGE 06-19 11:08
PROVIDERS: ADMIT Hospitalist; ATTEND Hospitalist
PROC: 0W9G3ZZ Drainage of Peritoneal Cavity, Percutaneous Approach (ICD-10-PCS; principal; 2018-06-16)
PROC: 0W9G3ZZ Drainage of Peritoneal Cavity, Percutaneous Approach (ICD-10-PCS; 2018-06-18)
DX: K70.31 Alcoholic cirrhosis of liver with ascites (principal); E43 Unspecified severe protein-calorie malnutrition; L03.311 Cellulitis of abdominal wall; E87.1 Hypo-osmolality and hyponatremia; K76.6 Portal hypertension; R65.10 Systemic inflammatory response syndrome (SIRS) of non-infectious origin without acute organ dysfunction; D64.9 Anemia, unspecified; F10.10 Alcohol abuse, uncomplicated; K11.20 Sialoadenitis, unspecified; Z68.35 Body mass index [BMI] 35.0-35.9, adult; Z79.899 Other long term (current) drug therapy; Z71.41 Alcohol abuse counseling and surveillance of alcoholic
CPT/HCPCS: 36415; 49083; 71045; 76700; 80053; 80307; 82042; 82945; 83735; 84100; 84157; 85025; 85610; 86704; 86803; 87040; 87070; 87075; 87205; 87340; 87806; 88112; 88305; 89051; 96374; 99285; G0378; J0295; J0696; J1644; J1940; J3490; P9047; G0475; J7030

== ENCOUNTER 2018-07-17 19:16 | Inpatient (IN) | payer MEDICAID ==
[~2018-07-17] VITALS: Ht 170.2 cm; Wt 98.4 kg
[~2018-07-17 19:16] MED LIST changes: +FURO40TA6 PO; +PROP20TA PO; +SPIR100T PO
[2018-07-17] MEDS ORDERED: LACT10SO28 PO (19:57)
[2018-07-17] MEDS ORDERED: SODIUM CHLORIDE FLUSH 10ML SYR IVF ONE (20:30)
[2018-07-17] MEDS ORDERED: SODIUM CHLORIDE 0.9% 1,000ML IVBOLUS ONE (20:30)
[2018-07-17 20:51] LABS: BASOPHILS # (AUTO) 0.03 x10^3/uL (0-0.1); BASOPHILS % (AUTO) 0 % (0-1); EOSINOPHILS # (AUTO) 0.49 x10^3/uL (0-0.4); EOSINOPHILS % (AUTO) 6 % (1-7); LYMPHOCYTES # (AUTO) 1.53 x10^3/uL (1-3.4); LYMPHOCYTES % (AUTO) 19 % (22-44); MD NO; MEAN CORPUSCULAR HEMOGLOBIN 31.2 pg (27.5-34.5); MEAN CORPUSCULAR HGB CONC 34.2 g/dL (33.2-36.2); MEAN CORPUSCULAR VOLUME 91.3 fL (81-97); MEAN PLATELET VOLUME 8.7 fL (7.4-10.4); MONOCYTES # (AUTO) 0.87 x10^3/uL (0.2-0.8); MONOCYTES % (AUTO) 11 % (2-9); NEUTROPHILS # (AUTO) 5.27 x10^3/uL (1.8-6.8); NEUTROPHILS % (AUTO) 64 % (42-75); PLATELET COUNT 101 x10^3/uL (130-400); RED BLOOD COUNT 3.15 x10^6/uL (4.38-5.82); RED CELL DISTRIBUTION WIDTH 17.7 % (9.4-14.8)
[2018-07-17 21:01] LABS: INTERNATIONAL NORMALIZED RATIO 1.11 (0.93-1.1); PROTHROMBIN TIME 11.4 Seconds (9.6-11.5)
[2018-07-17 21:03] LABS: ALANINE AMINOTRANSFERASE 26 U/L (12-78); ALBUMIN 1.9 g/dL (3.4-5.0); ANION GAP 11 mmol/L (5-15); CALCIUM 7.6 mg/dL (8.5-10.1); CHLORIDE 108 mmol/L (98-107); CREATININE 1.24 mg/dL (0.7-1.3)
[2018-07-17 21:07] LABS: ALKALINE PHOSPHATASE 165 U/L (45-117); BILIRUBIN,TOTAL 1.3 mg/dL (0.2-1.0); TOTAL PROTEIN 5.8 g/dL (6.4-8.2)
[2018-07-17] MEDS ORDERED: LIDOCAINE-MPF 1%, 5ML ONE ×2 (21:10)
[2018-07-17] MEDS ORDERED: CEFAZOLIN PMX 1GM/50ML 50 ML IV ONE (22:00)
[2018-07-17] MEDS ORDERED: CEFAZOLIN PMX 1GM/50ML 50 ML ONE (22:25)
[2018-07-17] MEDS ORDERED: POLYETHYLENE GLYCOL 17 GM PACKET PO PRN (23:00)
[2018-07-17] MEDS ORDERED: ONDANSETRON ODT 4 MG PO PRN (23:00)
[2018-07-17] MEDS ORDERED: BISACODYL 10 MG SUPP PR PRN (23:00)
[2018-07-17] MEDS: SODIUM CHLORIDE FLUSH 10ML SYR IVF SCH (23:00)
[2018-07-17 23:38] VITALS: BP 116/67
[2018-07-18] MEDS: HEPARIN 5,000 UNITS/ML, 1ML SQ SCH ×3 (00:31→16:50)
[2018-07-18] MEDS: LACTULOSE 10 GM/15 ML UDC PO SCH ×4 (00:32→20:37)
[2018-07-18 00:52] LABS: ALANINE AMINOTRANSFERASE 19 U/L (12-78); ALBUMIN 1.6 g/dL (3.4-5.0); ANION GAP 8 mmol/L (5-15); CALCIUM 7.3 mg/dL (8.5-10.1); CHLORIDE 109 mmol/L (98-107); CREATININE 1.32 mg/dL (0.7-1.3)
[2018-07-18 00:55] LABS: ALKALINE PHOSPHATASE 151 U/L (45-117); TOTAL PROTEIN 4.9 g/dL (6.4-8.2)
[2018-07-18 01:07] LABS: BASOPHILS # (AUTO) 0.02 x10^3/uL (0-0.1); BASOPHILS % (AUTO) 0 % (0-1); EOSINOPHILS # (AUTO) 0.33 x10^3/uL (0-0.4); EOSINOPHILS % (AUTO) 4 % (1-7); LYMPHOCYTES # (AUTO) 1.05 x10^3/uL (1-3.4); LYMPHOCYTES % (AUTO) 14 % (22-44); MD SCAN; MEAN CORPUSCULAR HEMOGLOBIN 30.4 pg (27.5-34.5); MEAN CORPUSCULAR HGB CONC 33.4 g/dL (33.2-36.2); MEAN CORPUSCULAR VOLUME 91.1 fL (81-97); MEAN PLATELET VOLUME 8.7 fL (7.4-10.4); MONOCYTES # (AUTO) 0.57 x10^3/uL (0.2-0.8); MONOCYTES % (AUTO) 7 % (2-9); NEUTROPHILS # (AUTO) 5.79 x10^3/uL (1.8-6.8); NEUTROPHILS % (AUTO) 75 % (42-75); PLATELET COUNT 93 x10^3/uL (130-400); RED BLOOD COUNT 3.14 x10^6/uL (4.38-5.82); RED CELL DISTRIBUTION WIDTH 17.3 % (9.4-14.8)
[2018-07-18] MEDS: PROPRANOLOL 20 MG TABLET PO SCH ×2 (06:00→16:50)
[2018-07-18 06:20] VITALS: BP 96/53
[2018-07-18] MEDS: SENNA/DOCUSATE TABLET PO SCH (07:18)
[2018-07-18 07:21] VITALS: BP 111/69
[2018-07-18 07:50] VITALS: BP 90/54
[2018-07-18] MEDS: SODIUM CHLORIDE FLUSH 10ML SYR IVF SCH ×2 (09:00→20:39)
[2018-07-18] MEDS ORDERED: FUROSEMIDE 40 MG TABLET PO SCH (09:00)
[2018-07-18] MEDS: SPIRONOLACTONE 100 MG TABLET PO SCH (09:30)
[2018-07-18 10:12] LABS: MICROSCOPIC AUTO
[2018-07-18 10:14] LABS: CULTURE INDICATED? YES
[2018-07-18] MEDS ORDERED: CEFTRIAXONE PMX 1GM/50ML 50 ML IV SCH (12:30)
[2018-07-18] MEDS ORDERED: ALBUMIN HUMAN 25% 50 ML IV SCH (12:30)
[2018-07-18 13:05] VITALS: BP 106/66
[2018-07-18 19:36] VITALS: BP 102/61
[2018-07-18] MEDS: FUROSEMIDE 20 MG TABLET PO SCH (20:38)
[2018-07-18] MEDS: ALBUMIN HUMAN 25% 50 ML IV SCH (20:38)
[2018-07-19] MEDS: HEPARIN 5,000 UNITS/ML, 1ML SQ SCH ×3 (00:57→16:01)
[2018-07-19 01:55] VITALS: BP 106/55
[2018-07-19 05:42] LABS: CHLORIDE 111 mmol/L (98-107)
[2018-07-19 05:48] LABS: MEAN CORPUSCULAR HEMOGLOBIN 31.1 pg (27.5-34.5); MEAN CORPUSCULAR HGB CONC 33.6 g/dL (33.2-36.2); MEAN CORPUSCULAR VOLUME 92.3 fL (81-97); MEAN PLATELET VOLUME 8.9 fL (7.4-10.4); PLATELET COUNT 86 x10^3/uL (130-400); RED BLOOD COUNT 2.82 x10^6/uL (4.38-5.82)
[2018-07-19 05:49] LABS: ALANINE AMINOTRANSFERASE 17 U/L (12-78); ALBUMIN 1.6 g/dL (3.4-5.0); ALKALINE PHOSPHATASE 148 U/L (45-117); ANION GAP 8 mmol/L (5-15); BILIRUBIN,TOTAL 0.9 mg/dL (0.2-1.0); CALCIUM 7.4 mg/dL (8.5-10.1); CREATININE 1.32 mg/dL (0.7-1.3); TOTAL PROTEIN 4.7 g/dL (6.4-8.2)
[2018-07-19 06:06] LABS: BASOPHILS # (AUTO) 0.03 x10^3/uL (0-0.1); BASOPHILS % (AUTO) 0 % (0-1); EOSINOPHILS # (AUTO) 0.42 x10^3/uL (0-0.4); EOSINOPHILS % (AUTO) 7 % (1-7); LYMPHOCYTES # (AUTO) 1.47 x10^3/uL (1-3.4); LYMPHOCYTES % (AUTO) 23 % (22-44); MD SCAN; MONOCYTES # (AUTO) 0.69 x10^3/uL (0.2-0.8); MONOCYTES % (AUTO) 11 % (2-9); NEUTROPHILS # (AUTO) 3.68 x10^3/uL (1.8-6.8); NEUTROPHILS % (AUTO) 59 % (42-75)
[2018-07-19] MEDS: PROPRANOLOL 20 MG TABLET PO SCH ×2 (06:14→17:47)
[2018-07-19 07:39] VITALS: BP 94/55
[2018-07-19] MEDS: SENNA/DOCUSATE TABLET PO SCH (09:00)
[2018-07-19] MEDS: SODIUM CHLORIDE FLUSH 10ML SYR IVF SCH ×2 (09:00→21:01)
[2018-07-19] MEDS ORDERED: MAGNESIUM SULFATE PMX 4GM/100M 100 ML IV ONE (09:30)
[2018-07-19] MEDS: ALBUMIN HUMAN 25% 50 ML IV SCH ×2 (09:38→21:01)
[2018-07-19] MEDS: SPIRONOLACTONE 100 MG TABLET PO SCH (09:58)
[2018-07-19] MEDS: LACTULOSE 10 GM/15 ML UDC PO SCH ×3 (09:59→21:01)
[2018-07-19] MEDS: FUROSEMIDE 20 MG TABLET PO SCH ×2 (10:01→21:02)
[2018-07-19 13:11] VITALS: BP 103/65
[2018-07-19 20:31] VITALS: BP 104/58
[2018-07-20 01:41] VITALS: BP 99/57
[2018-07-20] MEDS: HEPARIN 5,000 UNITS/ML, 1ML SQ SCH ×2 (01:56→08:14)
[2018-07-20 05:25] LABS: BASOPHILS # (AUTO) 0.04 x10^3/uL (0-0.1); BASOPHILS % (AUTO) 1 % (0-1); EOSINOPHILS # (AUTO) 0.62 x10^3/uL (0-0.4); EOSINOPHILS % (AUTO) 8 % (1-7); LYMPHOCYTES # (AUTO) 1.96 x10^3/uL (1-3.4); LYMPHOCYTES % (AUTO) 24 % (22-44); MD NO; MEAN CORPUSCULAR HGB CONC 33.9 g/dL (33.2-36.2); MEAN CORPUSCULAR VOLUME 91.4 fL (81-97); MEAN PLATELET VOLUME 8.8 fL (7.4-10.4); MONOCYTES # (AUTO) 0.76 x10^3/uL (0.2-0.8); MONOCYTES % (AUTO) 9 % (2-9); NEUTROPHILS # (AUTO) 4.77 x10^3/uL (1.8-6.8); NEUTROPHILS % (AUTO) 59 % (42-75); PLATELET COUNT 106 x10^3/uL (130-400); RED BLOOD COUNT 2.88 x10^6/uL (4.38-5.82)
[2018-07-20 05:30] LABS: ALBUMIN 1.9 g/dL (3.4-5.0); ANION GAP 9 mmol/L (5-15); CALCIUM 7.5 mg/dL (8.5-10.1); CHLORIDE 108 mmol/L (98-107)
[2018-07-20] MEDS: PROPRANOLOL 20 MG TABLET PO SCH (05:31)
[2018-07-20 05:33] LABS: ALANINE AMINOTRANSFERASE 18 U/L (12-78); ALKALINE PHOSPHATASE 123 U/L (45-117); BILIRUBIN,TOTAL 0.9 mg/dL (0.2-1.0); CREATININE 1.52 mg/dL (0.7-1.3); TOTAL PROTEIN 4.9 g/dL (6.4-8.2)
[2018-07-20 07:48] VITALS: BP 105/55
[2018-07-20] MEDS: FUROSEMIDE 20 MG TABLET PO SCH (08:13)
[2018-07-20] MEDS: SPIRONOLACTONE 100 MG TABLET PO SCH (08:13)
[2018-07-20] MEDS: LACTULOSE 10 GM/15 ML UDC PO SCH ×2 (08:15→16:00)
[2018-07-20] MEDS: SENNA/DOCUSATE TABLET PO SCH (08:15)
[2018-07-20] MEDS: SODIUM CHLORIDE FLUSH 10ML SYR IVF SCH (08:15)
[2018-07-20 15:27] VITALS: BP 106/59
[2018-07-20 15:57] VITALS: BP 106/59
[2018-07-21] MEDS ORDERED: FUROSEMIDE 10 MG/ML ORAL SOL PO SCH (09:00)
== END 2018-07-20 17:00 | disposition home or self-care (01) | DRG 432 ==
LOC: ED 22:04 → EDIP 22:42 → 4WST 23:26 → DCLOUNGE 07-20 16:34
PROVIDERS: ADMIT Internal Medicine; ATTEND Internal Medicine
PROC: 0W9G3ZZ Drainage of Peritoneal Cavity, Percutaneous Approach (ICD-10-PCS; principal; 2018-07-17)
PROC: 0W9B3ZZ Drainage of Left Pleural Cavity, Percutaneous Approach (ICD-10-PCS; 2018-07-17)
DX: K70.31 Alcoholic cirrhosis of liver with ascites (principal); J96.00 Acute respiratory failure, unspecified whether with hypoxia or hypercapnia; E43 Unspecified severe protein-calorie malnutrition; N39.0 Urinary tract infection, site not specified; K76.6 Portal hypertension; I85.00 Esophageal varices without bleeding; J90 Pleural effusion, not elsewhere classified; E87.2 Acidosis; L03.311 Cellulitis of abdominal wall; I10 Essential (primary) hypertension; N28.9 Disorder of kidney and ureter, unspecified; E83.42 Hypomagnesemia; D69.6 Thrombocytopenia, unspecified; G47.30 Sleep apnea, unspecified; D64.9 Anemia, unspecified; Z91.19 Patient's noncompliance with other medical treatment and regimen; Z79.899 Other long term (current) drug therapy
CPT/HCPCS: 32555; 36415; 36600; 49083; 71045; 80053; 81001; 82803; 83605; 83690; 83735; 83880; 84145; 85025; 85610; 85730; 87040; 87086; 93005; 96365; G0378; J0690; J0696; J1644; P9047; J3475; J7030

== ENCOUNTER 2018-09-28 18:57 | Observation (INO) | payer MEDICAID, OTHER ==
[~2018-09-28] VITALS: Ht 170.2 cm; Wt 90.8 kg
[~2018-09-28 18:57] MED LIST changes: +LACT10SO28 PO
[2018-09-28 19:35] LABS: BASOPHILS # (AUTO) 0.02 x10^3/uL (0-0.1); BASOPHILS % (AUTO) 0 % (0-1); EOSINOPHILS # (AUTO) 0.27 x10^3/uL (0-0.4); EOSINOPHILS % (AUTO) 4 % (1-7); LYMPHOCYTES # (AUTO) 1.33 x10^3/uL (1-3.4); LYMPHOCYTES % (AUTO) 18 % (22-44); MD NO; MEAN CORPUSCULAR HEMOGLOBIN 26.2 pg (27.5-34.5); MEAN CORPUSCULAR VOLUME 79.2 fL (81-97); MEAN PLATELET VOLUME 8.5 fL (7.4-10.4); MONOCYTES # (AUTO) 0.57 x10^3/uL (0.2-0.8); MONOCYTES % (AUTO) 8 % (2-9); NEUTROPHILS # (AUTO) 5.16 x10^3/uL (1.8-6.8); NEUTROPHILS % (AUTO) 70 % (42-75); PLATELET COUNT 149 x10^3/uL (130-400); RED BLOOD COUNT 3.55 x10^6/uL (4.38-5.82); RED CELL DISTRIBUTION WIDTH 17.8 % (9.4-14.8)
[2018-09-28 19:44] LABS: INTERNATIONAL NORMALIZED RATIO 1.15 (0.93-1.1); PROTHROMBIN TIME 12.1 Seconds (9.6-11.5)
[2018-09-28 19:47] LABS: ALANINE AMINOTRANSFERASE 20 U/L (12-78); ANION GAP 6 mmol/L (5-15); CALCIUM 7.8 mg/dL (8.5-10.1); CHLORIDE 104 mmol/L (98-107); CREATININE 1.16 mg/dL (0.7-1.3)
[2018-09-28 19:49] LABS: ALKALINE PHOSPHATASE 139 U/L (45-117); BILIRUBIN,TOTAL 1.6 mg/dL (0.2-1.0); TOTAL PROTEIN 5.7 g/dL (6.4-8.2)
[2018-09-28] MEDS ORDERED: LIDOCAINE-MPF 1%, 5ML ONE ×2 (20:05→21:06)
--- NOTE | 2018-09-28 20:07 | NUR ---
PT TAKING TO US FOR PARACENTESIS.
--- NOTE | 2018-09-28 21:55 | NUR ---
PT RETURNED FROM US AFTER HAVING THORACENTESIS AND PARACENTESIS. PT SITTING IN BED WITH COMPLAINTS OF SOB. VSS STABLE.
[2018-09-28] MEDS ORDERED: hydrALAzine 20 MG/ML, 1ML IVPush PRN (23:00)
[2018-09-28] MEDS ORDERED: LORazepam 1MG TABLET PO PRN (23:00)
[2018-09-28] MEDS ORDERED: DIPHENHYDRAMINE 25 MG CAPSULE PO PRN (23:00)
[2018-09-28] MEDS ORDERED: LIDODERM 5% PATCH TD PRN (23:00)
[2018-09-28] MEDS ORDERED: BISACODYL 10 MG SUPP PR PRN (23:00)
[2018-09-28] MEDS ORDERED: ONDANSETRON ODT 4 MG PO PRN (23:00)
--- NOTE | 2018-09-28 23:05 | NUR ---
REPORT CALLED TO BRUCE AUGUSTINE [phone]
[2018-09-28 23:57] VITALS: BP 100/55
[2018-09-29 03:01] VITALS: BP 108/68
[2018-09-29 05:23] LABS: ANION GAP 7 mmol/L (5-15); CALCIUM 7.7 mg/dL (8.5-10.1); CHLORIDE 107 mmol/L (98-107); CREATININE 1.04 mg/dL (0.7-1.3)
[2018-09-29 05:28] LABS: BASOPHILS # (AUTO) 0.04 x10^3/uL (0-0.1); BASOPHILS % (AUTO) 1 % (0-1); EOSINOPHILS # (AUTO) 0.35 x10^3/uL (0-0.4); EOSINOPHILS % (AUTO) 4 % (1-7); LYMPHOCYTES # (AUTO) 1.07 x10^3/uL (1-3.4); LYMPHOCYTES % (AUTO) 12 % (22-44); MD NO; MEAN CORPUSCULAR HEMOGLOBIN 26.9 pg (27.5-34.5); MEAN CORPUSCULAR HGB CONC 33.6 g/dL (33.2-36.2); MEAN CORPUSCULAR VOLUME 79.9 fL (81-97); MEAN PLATELET VOLUME 8.5 fL (7.4-10.4); MONOCYTES # (AUTO) 0.52 x10^3/uL (0.2-0.8); MONOCYTES % (AUTO) 6 % (2-9); NEUTROPHILS # (AUTO) 6.66 x10^3/uL (1.8-6.8); NEUTROPHILS % (AUTO) 77 % (42-75); PLATELET COUNT 114 x10^3/uL (130-400); RED BLOOD COUNT 3.12 x10^6/uL (4.38-5.82); RED CELL DISTRIBUTION WIDTH 17.3 % (9.4-14.8)
[2018-09-29 07:45] VITALS: BP 93/49
== END 2018-09-29 11:22 | disposition home or self-care (01) ==
LOC: ED 22:10 → UNDOADMOB 22:32 → EDIP 22:32 → INTOOBSV 22:32 → EDIP 23:03 → 4EST 09-29 00:06 → UNDODISOB 09-29 11:22
PROVIDERS: ADMIT Hospitalist; ATTEND Hospitalist
DX: K70.31 Alcoholic cirrhosis of liver with ascites (principal); D50.9 Iron deficiency anemia, unspecified; D68.9 Coagulation defect, unspecified; E43 Unspecified severe protein-calorie malnutrition; E87.6 Hypokalemia; F10.239 Alcohol dependence with withdrawal, unspecified; J90 Pleural effusion, not elsewhere classified; K76.6 Portal hypertension; K80.20 Calculus of gallbladder without cholecystitis without obstruction; Z83.3 Family history of diabetes mellitus
CPT/HCPCS: 32555; 36415; 49083; 71045; 71046; 80048; 80053; 83690; 83735; 85025; 85610; 93005; 99284; G0378; 99285

== ENCOUNTER 2018-10-18 18:25 | Inpatient (IN) | payer OTHER ==
[~2018-10-18] VITALS: Ht 170.2 cm; Wt 91.7 kg
[2018-10-18] MEDS ORDERED: IBUPROFEN 600 MG TABLET ONE (18:46)
--- NOTE | 2018-10-18 19:00 | NUR ---
PT HERE WITH , KNOWN LIVER DISEASE, CONITUES TO DRINK INTERMITTENTLY AND OFTEN FORGETS TO TAKE HIS MEDICATIONS, DID NOT TAKE TODAY. FELLING POORLY ALL DAY AND SOB, ABD SWOLLEN, FIRM. IV START AND MEDICATED FOR FEVER WITH IBUPROFEN
[2018-10-18] MEDS ORDERED: IBUPROFEN 200 MG TABLET PO ONE (19:30)
[2018-10-18 19:31] LABS: BASOPHILS # (AUTO) 0.04 x10^3/uL (0-0.1); BASOPHILS % (AUTO) 1 % (0-1); EOSINOPHILS # (AUTO) 0.03 x10^3/uL (0-0.4); EOSINOPHILS % (AUTO) 1 % (1-7); LYMPHOCYTES # (AUTO) 0.35 x10^3/uL (1-3.4); LYMPHOCYTES % (AUTO) 8 % (22-44); MD NO; MEAN CORPUSCULAR HEMOGLOBIN 25.3 pg (27.5-34.5); MEAN CORPUSCULAR HGB CONC 32.6 g/dL (33.2-36.2); MEAN CORPUSCULAR VOLUME 77.5 fL (81-97); MEAN PLATELET VOLUME 8.6 fL (7.4-10.4); MONOCYTES % (AUTO) 11 % (2-9); NEUTROPHILS # (AUTO) 3.67 x10^3/uL (1.8-6.8); NEUTROPHILS % (AUTO) 80 % (42-75); PLATELET COUNT 105 x10^3/uL (130-400); RED BLOOD COUNT 3.34 x10^6/uL (4.38-5.82)
[2018-10-18] MEDS ORDERED: POTASSIUM (19:34)
[2018-10-18 19:36] LABS: ALANINE AMINOTRANSFERASE 16 U/L (12-78); ALBUMIN 1.8 g/dL (3.4-5.0); ANION GAP 8 mmol/L (5-15); CALCIUM 7.7 mg/dL (8.5-10.1); CHLORIDE 106 mmol/L (98-107); CREATININE 1.15 mg/dL (0.7-1.3)
[2018-10-18 19:38] LABS: ALKALINE PHOSPHATASE 109 U/L (45-117); BILIRUBIN,TOTAL 1.2 mg/dL (0.2-1.0); TOTAL PROTEIN 5.3 g/dL (6.4-8.2)
--- NOTE | 2018-10-18 20:01 | NUR ---
FLU SWAB OBTAINED AND SENT, PT TOLERATE WELL. AWAIT US FOR PROCEDURES.
[2018-10-18 20:37] LABS: RAPID INFLUENZA A POSITIVE (Negative); RAPID INFLUENZA B Negative (Negative)
[2018-10-18] MEDS ORDERED: LIDOCAINE-MPF 1%, 5ML ONE (20:38)
--- NOTE | 2018-10-18 20:46 | NUR ---
PT TO US VIA STRETCHER FOR PROCEDURE
[2018-10-18] MEDS ORDERED: OSELTAMIVIR 75 MG CAPSULE PO ONE (21:30)
--- NOTE | 2018-10-18 21:32 | NUR ---
PT REMAINS ULTRASOUND
--- NOTE | 2018-10-18 21:51 | NUR ---
PT RETURNS FROM US, NOTES THAT HE IS FEELING MUCH BETTER AT THIS TIME, HYPOTENSIVE, WILL MONITOR. SR MONITOR, PT AA AND O TIMES 4, DENIES DIZZINESS, PERIPH PULSES STRONG
--- NOTE | 2018-10-18 22:06 | NUR ---
MD AWARE OF B/P, 500ML FLUID BOLUS ORDERED AND GIVEN
--- NOTE | 2018-10-18 22:15 | NUR ---
FLUID BOLUS CONTINUES, PT IS AA AND O TIMES 4, PERIPH PULSES STRONG AND REGUALR, CONTINUE TO MONITOR, FAMILY AT BEDSIDE
[2018-10-18] MEDS ORDERED: SODIUM CHLORIDE 0.9% 1,000ML IVBOLUS ONE (22:30)
[2018-10-18] MEDS ORDERED: OSELTAMIVIR 75 MG CAPSULE ONE (22:50)
--- NOTE | 2018-10-18 22:56 | NUR ---
HOSPITALIST AT BEDSIDE
[2018-10-18] MEDS ORDERED: SODIUM CHLORIDE FLUSH 10ML SYR IVF PRN (23:00)
[2018-10-18] MEDS ORDERED: GUAIFENESIN/DM 200-20MG, 10ML UDC PO PRN (23:30)
[2018-10-18] MEDS ORDERED: ONDANSETRON 2MG/ML, 2ML IVPush PRN (23:30)
[2018-10-18] MEDS ORDERED: ACETAMINOPHEN 325 MG TABLET PO PRN (23:30)
[2018-10-19] MEDS ORDERED: POTASSIUM CHLORIDE 20 MEQ TAB.ER.PRT PO ONE
[2018-10-19 00:03] LABS: INTERNATIONAL NORMALIZED RATIO 1.19 (0.93-1.1); PROTHROMBIN TIME 12.5 Seconds (9.6-11.5)
[2018-10-19 00:48] VITALS: BP 89/52
[2018-10-19] MEDS: ENOXAPARIN 40 MG/0.4 ML SQ SCH ×2 (01:31→23:45)
[2018-10-19] MEDS ORDERED: FUROSEMIDE 20 MG/2 ML IV ONE (04:30)
[2018-10-19 05:51] LABS: ANION GAP 6 mmol/L (5-15); CALCIUM 7.8 mg/dL (8.5-10.1); CHLORIDE 106 mmol/L (98-107)
[2018-10-19 05:53] LABS: CREATININE 1.31 mg/dL (0.7-1.3)
[2018-10-19 06:15] LABS: MEAN CORPUSCULAR HGB CONC 33.3 g/dL (33.2-36.2); RED BLOOD COUNT 3.35 x10^6/uL (4.38-5.82); RED CELL DISTRIBUTION WIDTH 17.4 % (9.4-14.8)
[2018-10-19 07:17] VITALS: BP 110/69
[2018-10-19 07:59] LABS: MD SCAN; PLATELET COUNT 86 x10^3/uL (130-400)
[2018-10-19] MEDS ORDERED: SPIRONOLACTONE 25 MG TABLET ONE (07:59)
[2018-10-19 08:01] LABS: BASOPHILS # (AUTO) 0.04 x10^3/uL (0-0.1); BASOPHILS % (AUTO) 1 % (0-1); EOSINOPHILS # (AUTO) 0.02 x10^3/uL (0-0.4); EOSINOPHILS % (AUTO) 1 % (1-7); LYMPHOCYTES # (AUTO) 0.35 x10^3/uL (1-3.4); LYMPHOCYTES % (AUTO) 9 % (22-44); MONOCYTES # (AUTO) 0.36 x10^3/uL (0.2-0.8); MONOCYTES % (AUTO) 9 % (2-9); NEUTROPHILS # (AUTO) 3.33 x10^3/uL (1.8-6.8); NEUTROPHILS % (AUTO) 81 % (42-75)
[2018-10-19] MEDS: IBUPROFEN 600 MG TABLET PO PRN ×2 (08:02→20:21)
[2018-10-19] MEDS: FUROSEMIDE 40 MG TABLET PO SCH (08:02)
[2018-10-19] MEDS: OSELTAMIVIR 75 MG CAPSULE PO SCH ×2 (08:02→20:05)
[2018-10-19] MEDS: SPIRONOLACTONE 100 MG TABLET PO SCH (08:02)
[2018-10-19] MEDS: AZITHROMYCIN 500 MG in SODIUM CHLORIDE 0.9% 250 ML IV SCH (08:29)
[2018-10-19 13:11] VITALS: BP 91/54
[2018-10-19] MEDS ORDERED: AZIT500T PO (16:09)
[2018-10-19] MEDS ORDERED: GUAI1TBM11 PO (16:09)
[2018-10-19] MEDS ORDERED: OSEL75CA PO ×2 (16:09)
[2018-10-19] MEDS ORDERED: POTASSIUM (16:10)
[2018-10-19] MEDS ORDERED: POTA20TA6 PO (16:11)
[2018-10-19 20:10] VITALS: BP 116/71
[2018-10-19 23:47] VITALS: BP 92/51
[2018-10-20 02:08] VITALS: BP 98/60
[2018-10-20 06:33] VITALS: BP 100/64
[2018-10-20] MEDS ORDERED: SPIRONOLACTONE 25 MG TABLET ONE (08:11)
[2018-10-20] MEDS: SPIRONOLACTONE 100 MG TABLET PO SCH (08:25)
[2018-10-20] MEDS: AZITHROMYCIN 500 MG in SODIUM CHLORIDE 0.9% 250 ML IV SCH (08:25)
[2018-10-20] MEDS: OSELTAMIVIR 75 MG CAPSULE PO SCH ×2 (08:26→21:12)
[2018-10-20] MEDS: FUROSEMIDE 40 MG TABLET PO SCH (08:26)
[2018-10-20 11:59] LABS: ANION GAP 8 mmol/L (5-15); CALCIUM 7.5 mg/dL (8.5-10.1); CHLORIDE 104 mmol/L (98-107); CREATININE 1.73 mg/dL (0.7-1.3)
[2018-10-20 13:55] VITALS: BP 118/78
[2018-10-20 19:42] VITALS: BP 109/66
[2018-10-20] MEDS: ENOXAPARIN 40 MG/0.4 ML SQ SCH (21:12)
[2018-10-21 01:20] VITALS: BP 116/78
[2018-10-21] MEDS: AZITHROMYCIN 500 MG in SODIUM CHLORIDE 0.9% 250 ML IV SCH (07:37)
[2018-10-21 08:44] VITALS: BP 107/69
[2018-10-21] MEDS: OSELTAMIVIR 75 MG CAPSULE PO SCH ×2 (08:45→20:24)
[2018-10-21] MEDS: SPIRONOLACTONE 100 MG TABLET PO SCH (08:46)
[2018-10-21] MEDS: FUROSEMIDE 40 MG TABLET PO SCH (08:46)
[2018-10-21 10:08] LABS: ANION GAP 6 mmol/L (5-15); CALCIUM 7.4 mg/dL (8.5-10.1); CHLORIDE 104 mmol/L (98-107); CREATININE 1.37 mg/dL (0.7-1.3)
[2018-10-21] MEDS ORDERED: LIDOCAINE-MPF 1%, 5ML ONE (12:31)
[2018-10-21 14:59] VITALS: BP 95/62
[2018-10-21 18:52] VITALS: BP 96/56
[2018-10-21] MEDS: ENOXAPARIN 40 MG/0.4 ML SQ SCH (23:30)
[2018-10-22 00:52] VITALS: BP 102/57
[2018-10-22 07:35] VITALS: BP 90/57
[2018-10-22] MEDS: SPIRONOLACTONE 100 MG TABLET PO SCH (07:40)
[2018-10-22] MEDS: OSELTAMIVIR 75 MG CAPSULE PO SCH (07:40)
[2018-10-22] MEDS: AZITHROMYCIN 500 MG in SODIUM CHLORIDE 0.9% 250 ML IV SCH (07:40)
[2018-10-22] MEDS: FUROSEMIDE 40 MG TABLET PO SCH (07:40)
[2018-10-22 13:35] VITALS: BP 102/66
[2018-10-22] MEDS ORDERED: OSEL75CA PO (13:35)
== END 2018-10-22 15:37 | disposition home or self-care (01) | DRG 432 ==
LOC: ED 21:04 → EDIP 22:59 → 4NOR 10-19 00:22
PROVIDERS: ADMIT Internal Medicine; ATTEND Internal Medicine
PROC: 0W9B3ZZ Drainage of Left Pleural Cavity, Percutaneous Approach (ICD-10-PCS; principal; 2018-10-18)
PROC: 0W9G3ZZ Drainage of Peritoneal Cavity, Percutaneous Approach (ICD-10-PCS; 2018-10-18)
PROC: 0W9B3ZZ Drainage of Left Pleural Cavity, Percutaneous Approach (ICD-10-PCS; 2018-10-21)
PROC: 0W9G3ZZ Drainage of Peritoneal Cavity, Percutaneous Approach (ICD-10-PCS; 2018-10-21)
DX: K70.31 Alcoholic cirrhosis of liver with ascites (principal); J10.00 Influenza due to other identified influenza virus with unspecified type of pneumonia; J96.01 Acute respiratory failure with hypoxia; E44.1 Mild protein-calorie malnutrition; J90 Pleural effusion, not elsewhere classified; K76.6 Portal hypertension; D64.9 Anemia, unspecified; D69.59 Other secondary thrombocytopenia; E87.6 Hypokalemia; G47.30 Sleep apnea, unspecified; I10 Essential (primary) hypertension; Z82.49 Family history of ischemic heart disease and other diseases of the circulatory system; Z83.3 Family history of diabetes mellitus; Z71.41 Alcohol abuse counseling and surveillance of alcoholic; Z68.31 Body mass index [BMI] 31.0-31.9, adult; Z87.440 Personal history of urinary (tract) infections
CPT/HCPCS: 32555; 36415; 49083; 71045; 80048; 80053; 82042; 82150; 82945; 83605; 83615; 83690; 83986; 84145; 84157; 85025; 85610; 85730; 87015; 87040; 87070; 87075; 87102; 87116; 87205; 87206; 87400; 89051; 93005; 99285; G0378; J0456; J1650; J1940; J7030; J7050

== ENCOUNTER 2019-07-02 17:06 | Inpatient (IN) | payer MEDICAID, OTHER ==
[~2019-07-02] VITALS: Ht 170.2 cm; Wt 93.0 kg
[~2019-07-02 17:06] MED LIST changes: +AZIT500T PO; +CITA10TA4 PO; +FURO80TA77 PO; +GUAI1TBM11 PO; +IRON; +OSEL75CA26 PO; +POTA20TA6 PO; +POTASSIUM
--- NOTE | 2019-07-02 18:57 | NUR ---
BEDSIDE SBAR HAND-OFF REPORT GIVEN TO DAVIDE LIGHT.
--- NOTE | 2019-07-02 20:19 | NUR ---
PT GIVEN UA CUP FOR URINE SAMPLE.
--- NOTE | 2019-07-02 20:25 | NUR ---
UA COLLECTED AND SENT TO LAB.
[2019-07-02] MEDS ORDERED: LIDOCAINE 1%, 10ML ONE ×2 (20:32→21:37)
[2019-07-02 20:33] LABS: ALANINE AMINOTRANSFERASE 21 U/L (12-78); ALBUMIN 1.7 g/dL (3.4-5.0); ANION GAP 9 mmol/L (5-15); CALCIUM 7.5 mg/dL (8.5-10.1); CHLORIDE 108 mmol/L (98-107); CREATININE 2.19 mg/dL (0.7-1.3)
[2019-07-02 20:35] LABS: ALKALINE PHOSPHATASE 160 U/L (45-117); BILIRUBIN,TOTAL 1.3 mg/dL (0.2-1.0); TOTAL PROTEIN 5.1 g/dL (6.4-8.2)
[2019-07-02 20:45] LABS: CULTURE INDICATED? YES; MICROSCOPIC INDICATED
[2019-07-02 21:11] LABS: MEAN CORPUSCULAR HEMOGLOBIN 28.7 pg (27.5-34.5); MEAN CORPUSCULAR HGB CONC 33.3 g/dL (33.2-36.2); MEAN PLATELET VOLUME 9.1 fL (7.4-10.4); PLATELET COUNT 99 x10^3/uL (130-400); RED BLOOD COUNT 3.78 x10^6/uL (4.38-5.82); RED CELL DISTRIBUTION WIDTH 22.8 % (9.4-14.8)
[2019-07-02 21:15] LABS: BAND#(MANUAL) 0.18 x10^3/uL; BANDS%(MANUAL) 1 % (0-7); EOS#(MANUAL) 0.35 x10^3/uL (0.0-0.4); EOS% (MANUAL) 2 % (1-7); LYMPH#(MANUAL) 0.53 x10^3/uL (1-3.4); LYMPHS% (MANUAL) 3 % (22-44); MD YES; MONOS#(MANUAL) 1.23 x10^3/uL (0.3-2.7); MONOS% (MANUAL) 7 % (2-9); MYELOCYTES# (MANUAL) 0.18 x10^3/uL (0-0); MYELOCYTES% (MANUAL) 1 % (0-0); SEG#(MANUAL) 15.14 x10^3/uL (1.8-6.8); SEGS% (MANUAL) 86 % (42-75)
[2019-07-02 21:16] LABS: ANISOCYTOSIS 1+; POLYCHROMASIA 1+
[2019-07-02 21:17] LABS: <PLATELET ESTIMATE> DECREASED; <PLT MORPHOLOGY> NORMAL PLT MORPH; OVALOCYTES 1+
[2019-07-02] MEDS ORDERED: CEFTRIAXONE PMX 1GM/50ML 50 ML IV ONE (22:00)
[2019-07-02] MEDS ORDERED: CEFTRIAXONE PMX 1GM/50ML 50 ML ONE (22:09)
[2019-07-02] MEDS ORDERED: OXYcodone/APAP 5/325MG TABLET ONE (22:40)
--- NOTE | 2019-07-02 22:42 | NUR ---
Pts labs drawn with one set of blood cultures at 1908, pt labs ordered at 1957. labs were ran at 2015, and results posted at 2116 which is when this RN confirmed sepsis. pt was not seen by provider until 1949. Pt then at 2044 went to IR for thorocentesis to be completed. Pt did not return to room until 2229. Labs were not avaible until 2116 to RNs. Pt had second blood culture drawn at 2234 and abx started at 2235. MD aware of pts condition. All sepsis worked up completed. labs were not completed until 2116.
--- NOTE | 2019-07-02 22:43 | NUR ---
MEDS ADMINISTERED PER NOV.
[2019-07-02] MEDS ORDERED: OXYcodone/APAP 5/325MG TABLET PO ONE (23:00)
--- NOTE | 2019-07-02 23:31 | NUR ---
REPORT GIVEN TO RICHIE AUGUSTINE.
[2019-07-02 23:49] VITALS: BP 108/66
[2019-07-03] MEDS ORDERED: LABETALOL 5MG/ML, 20ML IVPush PRN (00:30)
[2019-07-03] MEDS ORDERED: ONDANSETRON 2MG/ML, 2ML IVPush PRN (00:30)
[2019-07-03] MEDS ORDERED: CEFTRIAXONE PMX 1GM/50ML 50 ML IV SCH (00:30)
[2019-07-03 00:39] VITALS: BP 108/66
[2019-07-03 07:08] VITALS: BP 91/51
[2019-07-03] MEDS ORDERED: FUROSEMIDE 40 MG/4 ML IV SCH (07:30)
[2019-07-03] MEDS ORDERED: SPIRONOLACTONE 50 MG TABLET ONE (07:59)
[2019-07-03 08:07] VITALS: BP 101/58
[2019-07-03] MEDS: SPIRONOLACTONE 100 MG TABLET PO SCH (08:09)
[2019-07-03] MEDS: POTASSIUM CHLORIDE 20 MEQ TAB.ER.PRT PO SCH (08:09)
[2019-07-03 12:22] VITALS: BP 110/72
[2019-07-03 15:33] LABS: MEAN CORPUSCULAR HEMOGLOBIN 28.1 pg (27.5-34.5); MEAN CORPUSCULAR HGB CONC 32.8 g/dL (33.2-36.2); MEAN CORPUSCULAR VOLUME 85.6 fL (81-97); MEAN PLATELET VOLUME 8.7 fL (7.4-10.4); PLATELET COUNT 95 x10^3/uL (130-400); RED BLOOD COUNT 3.72 x10^6/uL (4.38-5.82); RED CELL DISTRIBUTION WIDTH 23.3 % (9.4-14.8)
[2019-07-03 15:36] LABS: ALANINE AMINOTRANSFERASE 18 U/L (12-78); ALBUMIN 1.4 g/dL (3.4-5.0); ANION GAP 8 mmol/L (5-15); CALCIUM 7.5 mg/dL (8.5-10.1); CHLORIDE 106 mmol/L (98-107); CREATININE 2.56 mg/dL (0.7-1.3)
[2019-07-03 15:38] LABS: ALKALINE PHOSPHATASE 128 U/L (45-117); BILIRUBIN,TOTAL 0.7 mg/dL (0.2-1.0); TOTAL PROTEIN 4.9 g/dL (6.4-8.2)
[2019-07-03 16:25] LABS: RAPID INFLUENZA A Negative (Negative); RAPID INFLUENZA B Negative (Negative)
[2019-07-03 16:35] LABS: MD YES
[2019-07-03 17:08] LABS: BAND#(MANUAL) 1.07 x10^3/uL; BANDS%(MANUAL) 10 % (0-7); EOS#(MANUAL) 0.96 x10^3/uL (0.0-0.4); EOS% (MANUAL) 9 % (1-7); LYMPH#(MANUAL) 1.18 x10^3/uL (1-3.4); LYMPHS% (MANUAL) 11 % (22-44); MONOS#(MANUAL) 0.11 x10^3/uL (0.3-2.7); MONOS% (MANUAL) 1 % (2-9); SEG#(MANUAL) 7.38 x10^3/uL (1.8-6.8); SEGS% (MANUAL) 69 % (42-75)
[2019-07-03 17:09] LABS: ANISOCYTOSIS 1+; OVALOCYTES 1+; POLYCHROMASIA 1+
[2019-07-03 17:10] LABS: <PLATELET ESTIMATE> DECREASED; <PLT MORPHOLOGY> NORMAL PLT MORPH
[2019-07-03] MEDS: FUROSEMIDE 40 MG/4 ML IV SCH (17:44)
[2019-07-03 20:31] VITALS: BP 108/63
[2019-07-04] MEDS: CEFTRIAXONE PMX 2GM/50ML 50 ML IV SCH (00:04)
[2019-07-04 02:18] VITALS: BP 113/71
[2019-07-04 05:25] LABS: MEAN CORPUSCULAR HEMOGLOBIN 27.7 pg (27.5-34.5); MEAN CORPUSCULAR HGB CONC 32.1 g/dL (33.2-36.2); MEAN CORPUSCULAR VOLUME 86.3 fL (81-97); MEAN PLATELET VOLUME 9.3 fL (7.4-10.4); PLATELET COUNT 88 x10^3/uL (130-400); RED BLOOD COUNT 3.52 x10^6/uL (4.38-5.82); RED CELL DISTRIBUTION WIDTH 22.7 % (9.4-14.8)
[2019-07-04 05:34] LABS: ALBUMIN 1.3 g/dL (3.4-5.0); ANION GAP 9 mmol/L (5-15); CALCIUM 7.2 mg/dL (8.5-10.1); CHLORIDE 107 mmol/L (98-107)
[2019-07-04 05:39] LABS: ALANINE AMINOTRANSFERASE 13 U/L (12-78); ALKALINE PHOSPHATASE 140 U/L (45-117); BILIRUBIN,TOTAL 0.6 mg/dL (0.2-1.0); CREATININE 1.82 mg/dL (0.7-1.3); TOTAL PROTEIN 4.5 g/dL (6.4-8.2)
[2019-07-04 05:40] LABS: MD YES
[2019-07-04 05:41] LABS: ANISOCYTOSIS 1+; EOS#(MANUAL) 0.96 x10^3/uL (0.0-0.4); EOS% (MANUAL) 12 % (1-7); LYMPH#(MANUAL) 1.04 x10^3/uL (1-3.4); LYMPHS% (MANUAL) 13 % (22-44); MONOS#(MANUAL) 0.56 x10^3/uL (0.3-2.7); MONOS% (MANUAL) 7 % (2-9); SEG#(MANUAL) 5.44 x10^3/uL (1.8-6.8); SEGS% (MANUAL) 68 % (42-75)
[2019-07-04 05:42] LABS: <PLATELET ESTIMATE> DECREASED; <PLT MORPHOLOGY> NORMAL PLT MORPH; OVALOCYTES 1+; POLYCHROMASIA 1+
[2019-07-04 08:55] VITALS: BP 110/70
[2019-07-04] MEDS: POTASSIUM CHLORIDE 20 MEQ TAB.ER.PRT PO SCH (09:08)
[2019-07-04] MEDS: FUROSEMIDE 40 MG/4 ML IV SCH (09:08)
[2019-07-04] MEDS: SPIRONOLACTONE 100 MG TABLET PO SCH (09:08)
[2019-07-04] MEDS: PANTOPRAZOLE 40 MG IV IVPush SCH ×2 (12:49→21:36)
[2019-07-04 15:20] VITALS: BP 123/77
[2019-07-04 19:44] VITALS: BP 116/73
[2019-07-05 00:21] VITALS: BP 108/71
[2019-07-05] MEDS: CEFTRIAXONE PMX 2GM/50ML 50 ML IV SCH (00:39)
[2019-07-05 05:33] LABS: MEAN CORPUSCULAR HEMOGLOBIN 28.6 pg (27.5-34.5); MEAN CORPUSCULAR HGB CONC 33.1 g/dL (33.2-36.2); MEAN CORPUSCULAR VOLUME 86.5 fL (81-97); PLATELET COUNT 90 x10^3/uL (130-400); RED BLOOD COUNT 3.42 x10^6/uL (4.38-5.82); RED CELL DISTRIBUTION WIDTH 22.3 % (9.4-14.8)
[2019-07-05 05:43] LABS: ALBUMIN 1.3 g/dL (3.4-5.0); ANION GAP 8 mmol/L (5-15); CALCIUM 7.2 mg/dL (8.5-10.1); CHLORIDE 107 mmol/L (98-107)
[2019-07-05 05:47] LABS: ALANINE AMINOTRANSFERASE 12 U/L (12-78); ALKALINE PHOSPHATASE 115 U/L (45-117); BILIRUBIN,TOTAL 0.4 mg/dL (0.2-1.0); CREATININE 1.35 mg/dL (0.7-1.3); TOTAL PROTEIN 4.5 g/dL (6.4-8.2)
[2019-07-05 06:01] LABS: BASOPHILS # (AUTO) 0.04 x10^3/uL (0-0.1); BASOPHILS % (AUTO) 1 % (0-1); EOSINOPHILS # (AUTO) 1.12 x10^3/uL (0-0.4); EOSINOPHILS % (AUTO) 16 % (1-7); LYMPHOCYTES # (AUTO) 0.99 x10^3/uL (1-3.4); LYMPHOCYTES % (AUTO) 14 % (22-44); MD SCAN; MONOCYTES % (AUTO) 8 % (2-9); NEUTROPHILS # (AUTO) 4.49 x10^3/uL (1.8-6.8); NEUTROPHILS % (AUTO) 62 % (42-75)
[2019-07-05 06:57] VITALS: BP 121/73
[2019-07-05] MEDS: POTASSIUM CHLORIDE 20 MEQ TAB.ER.PRT PO SCH (08:31)
[2019-07-05] MEDS: SPIRONOLACTONE 100 MG TABLET PO SCH (08:31)
[2019-07-05] MEDS: PANTOPRAZOLE 40 MG IV IVPush SCH (08:31)
[2019-07-05] MEDS: FUROSEMIDE 40 MG/4 ML IV SCH (08:32)
[2019-07-05] MEDS: AMPICILLIN/SULBACTAM 3 GM in SODIUM CHLORIDE 0.9% 100 ML IV SCH ×3 (12:21→23:59)
[2019-07-05 12:30] VITALS: BP 120/83
[2019-07-05] MEDS ORDERED: LIDOCAINE 1%, 10ML ONE (15:16)
[2019-07-05 19:39] VITALS: BP 114/71
[2019-07-05] MEDS: PANTOPROZOLE 40MG TABLET PO SCH (21:38)
[2019-07-06 01:07] VITALS: BP 111/73
[2019-07-06 05:14] LABS: CHLORIDE 111 mmol/L (98-107)
[2019-07-06 05:27] LABS: ALANINE AMINOTRANSFERASE 17 U/L (12-78); ALBUMIN 1.3 g/dL (3.4-5.0); ALKALINE PHOSPHATASE 122 U/L (45-117); ANION GAP 7 mmol/L (5-15); BILIRUBIN,TOTAL 0.8 mg/dL (0.2-1.0); CALCIUM 7.2 mg/dL (8.5-10.1); CREATININE 1.16 mg/dL (0.7-1.3); TOTAL PROTEIN 4.6 g/dL (6.4-8.2)
[2019-07-06 05:32] LABS: MEAN CORPUSCULAR HEMOGLOBIN 28.5 pg (27.5-34.5); MEAN CORPUSCULAR HGB CONC 32.8 g/dL (33.2-36.2); MEAN CORPUSCULAR VOLUME 86.8 fL (81-97); MEAN PLATELET VOLUME 8.9 fL (7.4-10.4); PLATELET COUNT 97 x10^3/uL (130-400); RED BLOOD COUNT 3.37 x10^6/uL (4.38-5.82); RED CELL DISTRIBUTION WIDTH 21.9 % (9.4-14.8)
[2019-07-06 05:54] LABS: BASOPHILS # (AUTO) 0.05 x10^3/uL (0-0.1); BASOPHILS % (AUTO) 1 % (0-1); EOSINOPHILS # (AUTO) 1.54 x10^3/uL (0-0.4); EOSINOPHILS % (AUTO) 21 % (1-7); LYMPHOCYTES # (AUTO) 1.07 x10^3/uL (1-3.4); LYMPHOCYTES % (AUTO) 15 % (22-44); MD SCAN; MONOCYTES # (AUTO) 0.77 x10^3/uL (0.2-0.8); MONOCYTES % (AUTO) 11 % (2-9); NEUTROPHILS # (AUTO) 3.85 x10^3/uL (1.8-6.8); NEUTROPHILS % (AUTO) 53 % (42-75)
[2019-07-06] MEDS: AMPICILLIN/SULBACTAM 3 GM in SODIUM CHLORIDE 0.9% 100 ML IV SCH ×3 (05:59→16:57)
[2019-07-06 06:49] VITALS: BP 126/70
[2019-07-06] MEDS: PANTOPROZOLE 40MG TABLET PO SCH ×2 (10:39→22:11)
[2019-07-06] MEDS: FUROSEMIDE 40 MG/4 ML IV SCH (10:39)
[2019-07-06] MEDS: SPIRONOLACTONE 100 MG TABLET PO SCH (10:39)
[2019-07-06] MEDS: POTASSIUM CHLORIDE 20 MEQ TAB.ER.PRT PO SCH (10:39)
[2019-07-06 13:00] VITALS: BP 123/84
[2019-07-06 17:26] LABS: INTERNATIONAL NORMALIZED RATIO 1.09 (0.93-1.1); PROTHROMBIN TIME 11.4 Seconds (9.6-11.5)
[2019-07-06 20:06] VITALS: BP 132/82
[2019-07-06] MEDS: THIAMINE 100MG TABLET PO SCH (22:11)
[2019-07-06 23:29] LABS: MICROSCOPIC INDICATED
[2019-07-07 00:37] VITALS: BP 95/61
[2019-07-07] MEDS: AMPICILLIN/SULBACTAM 3 GM in SODIUM CHLORIDE 0.9% 100 ML IV SCH ×5 (00:40→23:45)
[2019-07-07 02:07] VITALS: BP 104/58
[2019-07-07 05:22] LABS: BASOPHILS # (AUTO) 0.04 x10^3/uL (0-0.1); BASOPHILS % (AUTO) 1 % (0-1); EOSINOPHILS # (AUTO) 1.63 x10^3/uL (0-0.4); EOSINOPHILS % (AUTO) 20 % (1-7); LYMPHOCYTES # (AUTO) 1.04 x10^3/uL (1-3.4); LYMPHOCYTES % (AUTO) 13 % (22-44); MD NO; MEAN CORPUSCULAR HGB CONC 32.3 g/dL (33.2-36.2); MEAN CORPUSCULAR VOLUME 86.7 fL (81-97); MEAN PLATELET VOLUME 8.8 fL (7.4-10.4); MONOCYTES # (AUTO) 0.79 x10^3/uL (0.2-0.8); MONOCYTES % (AUTO) 10 % (2-9); NEUTROPHILS # (AUTO) 4.63 x10^3/uL (1.8-6.8); NEUTROPHILS % (AUTO) 57 % (42-75); PLATELET COUNT 112 x10^3/uL (130-400); RED BLOOD COUNT 3.54 x10^6/uL (4.38-5.82); RED CELL DISTRIBUTION WIDTH 21.6 % (9.4-14.8)
[2019-07-07 05:27] LABS: ALANINE AMINOTRANSFERASE 18 U/L (12-78); ALBUMIN 1.4 g/dL (3.4-5.0); ANION GAP 7 mmol/L (5-15); CALCIUM 7.4 mg/dL (8.5-10.1); CHLORIDE 111 mmol/L (98-107); CREATININE 1.05 mg/dL (0.7-1.3)
[2019-07-07 05:29] LABS: ALKALINE PHOSPHATASE 143 U/L (45-117); BILIRUBIN,TOTAL 0.5 mg/dL (0.2-1.0); TOTAL PROTEIN 4.9 g/dL (6.4-8.2)
[2019-07-07 07:02] VITALS: BP 110/72
[2019-07-07] MEDS: SPIRONOLACTONE 100 MG TABLET PO SCH (09:46)
[2019-07-07] MEDS: THIAMINE 100MG TABLET PO SCH ×2 (09:46→19:55)
[2019-07-07] MEDS: FUROSEMIDE 40 MG/4 ML IV SCH (09:46)
[2019-07-07] MEDS: PANTOPROZOLE 40MG TABLET PO SCH ×2 (09:46→19:55)
[2019-07-07] MEDS: FOLIC ACID 1 MG TABLET PO SCH (09:47)
[2019-07-07] MEDS: POTASSIUM CHLORIDE 20 MEQ TAB.ER.PRT PO SCH (09:47)
[2019-07-07 12:55] VITALS: BP 124/77
[2019-07-07 19:03] VITALS: BP 125/66
[2019-07-07 23:57] VITALS: BP 123/76
[2019-07-08 03:17] VITALS: BP 110/75
[2019-07-08 04:57] LABS: MEAN CORPUSCULAR HEMOGLOBIN 27.6 pg (27.5-34.5); MEAN CORPUSCULAR HGB CONC 32.2 g/dL (33.2-36.2); MEAN CORPUSCULAR VOLUME 85.7 fL (81-97); MEAN PLATELET VOLUME 8.5 fL (7.4-10.4); PLATELET COUNT 127 x10^3/uL (130-400); RED BLOOD COUNT 3.62 x10^6/uL (4.38-5.82)
[2019-07-08 05:09] LABS: ALBUMIN 1.4 g/dL (3.4-5.0); ANION GAP 4 mmol/L (5-15); CALCIUM 7.6 mg/dL (8.5-10.1); CHLORIDE 111 mmol/L (98-107)
[2019-07-08 05:14] LABS: ALANINE AMINOTRANSFERASE 18 U/L (12-78); ALKALINE PHOSPHATASE 134 U/L (45-117); BILIRUBIN,TOTAL 0.5 mg/dL (0.2-1.0); CREATININE 1.17 mg/dL (0.7-1.3)
[2019-07-08 05:17] LABS: BASOPHILS # (AUTO) 0.08 x10^3/uL (0-0.1); BASOPHILS % (AUTO) 1 % (0-1); EOSINOPHILS # (AUTO) 1.92 x10^3/uL (0-0.4); EOSINOPHILS % (AUTO) 19 % (1-7); LYMPHOCYTES # (AUTO) 1.16 x10^3/uL (1-3.4); LYMPHOCYTES % (AUTO) 12 % (22-44); MD SCAN; MONOCYTES # (AUTO) 0.97 x10^3/uL (0.2-0.8); MONOCYTES % (AUTO) 10 % (2-9); NEUTROPHILS % (AUTO) 58 % (42-75)
[2019-07-08] MEDS: AMPICILLIN/SULBACTAM 3 GM in SODIUM CHLORIDE 0.9% 100 ML IV SCH ×4 (05:59→23:59)
[2019-07-08 07:21] VITALS: BP 119/73
[2019-07-08] MEDS: PANTOPROZOLE 40MG TABLET PO SCH ×2 (11:14→21:13)
[2019-07-08] MEDS: POTASSIUM CHLORIDE 20 MEQ TAB.ER.PRT PO SCH (11:15)
[2019-07-08] MEDS: FOLIC ACID 1 MG TABLET PO SCH (11:15)
[2019-07-08] MEDS: THIAMINE 100MG TABLET PO SCH ×2 (11:15→21:13)
[2019-07-08] MEDS: FUROSEMIDE 40 MG/4 ML IV SCH (11:15)
[2019-07-08] MEDS: SPIRONOLACTONE 100 MG TABLET PO SCH (11:21)
[2019-07-08 13:04] VITALS: BP 120/73
[2019-07-08 19:36] VITALS: BP 125/76
[2019-07-09 00:09] VITALS: BP 107/68
[2019-07-09 04:58] LABS: MEAN CORPUSCULAR HEMOGLOBIN 28.5 pg (27.5-34.5); MEAN CORPUSCULAR HGB CONC 32.6 g/dL (33.2-36.2); MEAN CORPUSCULAR VOLUME 87.5 fL (81-97); MEAN PLATELET VOLUME 8.7 fL (7.4-10.4); PLATELET COUNT 130 x10^3/uL (130-400)
[2019-07-09 05:05] LABS: ANION GAP 6 mmol/L (5-15); CALCIUM 7.7 mg/dL (8.5-10.1); CHLORIDE 109 mmol/L (98-107)
[2019-07-09 05:06] LABS: CREATININE 1.09 mg/dL (0.7-1.3)
[2019-07-09 05:36] LABS: MD YES
[2019-07-09 05:38] LABS: ANISOCYTOSIS 1+; BASOS% (MANUAL) 1 % (0-1); EOS#(MANUAL) 2.25 x10^3/uL (0.0-0.4); EOS% (MANUAL) 23 % (1-7); LYMPH#(MANUAL) 1.08 x10^3/uL (1-3.4); LYMPHS% (MANUAL) 11 % (22-44); MONOS#(MANUAL) 1.27 x10^3/uL (0.3-2.7); MONOS% (MANUAL) 13 % (2-9); MYELOCYTES% (MANUAL) 1 % (0-0); SEGS% (MANUAL) 51 % (42-75)
[2019-07-09 05:39] LABS: <PLATELET ESTIMATE> ADEQUATE; <PLT MORPHOLOGY> NORMAL PLT MORPH; OVALOCYTES 1+
[2019-07-09] MEDS: AMPICILLIN/SULBACTAM 3 GM in SODIUM CHLORIDE 0.9% 100 ML IV SCH ×3 (05:55→20:51)
[2019-07-09 07:11] VITALS: BP 134/79
[2019-07-09] MEDS: PANTOPROZOLE 40MG TABLET PO SCH ×2 (10:00→21:09)
[2019-07-09] MEDS: THIAMINE 100MG TABLET PO SCH ×2 (10:00→21:11)
[2019-07-09] MEDS: FUROSEMIDE 40 MG/4 ML IV SCH (10:00)
[2019-07-09] MEDS: POTASSIUM CHLORIDE 20 MEQ TAB.ER.PRT PO SCH (10:00)
[2019-07-09] MEDS: SPIRONOLACTONE 100 MG TABLET PO SCH (10:00)
[2019-07-09] MEDS: FOLIC ACID 1 MG TABLET PO SCH (10:00)
[2019-07-09 13:52] VITALS: BP 123/82
[2019-07-09] MEDS ORDERED: DOXYCYCLINE 100 MG VIAL ONE ×2 (14:30→14:40)
[2019-07-09] MEDS ORDERED: EPINEPHRINE 1 MG/ML, 1ML ONE (15:27)
[2019-07-09] MEDS ORDERED: BUPIVACAINE/PF 0.5% ONE (15:27)
[2019-07-09] MEDS ORDERED: MIDAZOLAM 1 MG/ML, 2ML ONE (15:48)
[2019-07-09] MEDS ORDERED: FENTANYL PF 250 MCG/5ML ONE (15:48)
[2019-07-09] MEDS ORDERED: PHENYLEPHRINE 10 MG/ML ONE (16:15)
[2019-07-09] MEDS ORDERED: ALBUMIN HUMAN 5% 0 ML ONE (16:42)
[2019-07-09] MEDS ORDERED: ALBUMIN HUMAN 5% 500 ML ONE (16:44)
[2019-07-09] MEDS ORDERED: ONDANSETRON 2MG/ML, 2ML ONE (16:50)
[2019-07-09] MEDS ORDERED: PROPOFOL 10 MG/ML, 20ML ONE (16:50)
[2019-07-09] MEDS ORDERED: DEXAMETHASONE 4 MG/ML, 1ML ONE (16:50)
[2019-07-09] MEDS ORDERED: SUGAMMADEX 200 MG/2 ML IVPush ONE ×2 (16:50)
[2019-07-09] MEDS ORDERED: ROCURONIUM 10MG/ML,5ML ONE (16:50)
[2019-07-09] MEDS ORDERED: ALBUTEROL/IPRATROPIUM 2.5MG/0.5MG, 3 ML NPPB PRN (17:00)
[2019-07-09] MEDS ORDERED: PROMETHAZINE 25 MG/ML, 1ML IV PRN (17:00)
[2019-07-09] MEDS ORDERED: MEPERIDINE/PF 25MG/ML,1ML IVPush PRN (17:00)
[2019-07-09] MEDS ORDERED: FENTANYL PF 100 MCG/2ML IV PRN (17:00)
[2019-07-09] MEDS ORDERED: OXYcodone 5 MG/5 ML ORAL.SOL UDC PO PRN (17:00)
[2019-07-09] MEDS ORDERED: MIDAZOLAM 1 MG/ML, 2ML IV PRN (17:00)
[2019-07-09] MEDS ORDERED: FENTANYL PF 100 MCG/2ML ONE (17:10)
[2019-07-09] MEDS: HYDROmorphone 2 MG/ML, 1ML IVPush PRN ×2 (17:36→17:48)
[2019-07-09] MEDS ORDERED: HYDROmorphone 1 MG/ML, 1ML VIAL ONE (17:36)
[2019-07-09 19:17] VITALS: BP 116/70
[2019-07-09] MEDS ORDERED: HYDROmorphone 1 MG/ML, 1ML INJ IV PRN (19:30)
[2019-07-09] MEDS ORDERED: ONDANSETRON 2MG/ML, 2ML IV PRN (19:30)
[2019-07-09] MEDS: SODIUM CHLORIDE FLUSH 10ML SYR IVF SCH (21:10)
[2019-07-09] MEDS: HYDROcodone/APAP 5/325 TABLET PO PRN (21:10)
[2019-07-09 22:58] VITALS: BP 107/66
[2019-07-10] MEDS: AMPICILLIN/SULBACTAM 3 GM in SODIUM CHLORIDE 0.9% 100 ML IV SCH ×4 (03:24→22:24)
[2019-07-10] MEDS: HYDROcodone/APAP 5/325 TABLET PO PRN (03:25)
[2019-07-10 03:31] VITALS: BP 109/71
[2019-07-10 05:29] LABS: BASOPHILS % (AUTO) 0 % (0-1); EOSINOPHILS # (AUTO) 0.16 x10^3/uL (0-0.4); EOSINOPHILS % (AUTO) 1 % (1-7); LYMPHOCYTES # (AUTO) 0.65 x10^3/uL (1-3.4); LYMPHOCYTES % (AUTO) 6 % (22-44); MD NO; MEAN CORPUSCULAR HEMOGLOBIN 28.5 pg (27.5-34.5); MEAN CORPUSCULAR HGB CONC 32.4 g/dL (33.2-36.2); MEAN PLATELET VOLUME 8.8 fL (7.4-10.4); MONOCYTES # (AUTO) 0.35 x10^3/uL (0.2-0.8); MONOCYTES % (AUTO) 3 % (2-9); NEUTROPHILS # (AUTO) 10.31 x10^3/uL (1.8-6.8); NEUTROPHILS % (AUTO) 90 % (42-75); PLATELET COUNT 124 x10^3/uL (130-400); RED BLOOD COUNT 3.66 x10^6/uL (4.38-5.82); RED CELL DISTRIBUTION WIDTH 19.9 % (9.4-14.8)
[2019-07-10 05:46] LABS: ALANINE AMINOTRANSFERASE 15 U/L (12-78); ALBUMIN 1.7 g/dL (3.4-5.0); ANION GAP 5 mmol/L (5-15); CALCIUM 7.8 mg/dL (8.5-10.1); CHLORIDE 109 mmol/L (98-107)
[2019-07-10 05:48] LABS: ALKALINE PHOSPHATASE 117 U/L (45-117); BILIRUBIN,TOTAL 0.7 mg/dL (0.2-1.0)
[2019-07-10 07:22] VITALS: BP 103/63
[2019-07-10 08:45] VITALS: BP 113/70
[2019-07-10] MEDS: FUROSEMIDE 40 MG/4 ML IV SCH (09:29)
[2019-07-10] MEDS: THIAMINE 100MG TABLET PO SCH ×2 (09:32→19:52)
[2019-07-10] MEDS: SPIRONOLACTONE 100 MG TABLET PO SCH (09:33)
[2019-07-10] MEDS: PANTOPROZOLE 40MG TABLET PO SCH ×2 (09:35→19:52)
[2019-07-10] MEDS: FOLIC ACID 1 MG TABLET PO SCH (09:36)
[2019-07-10] MEDS: SODIUM CHLORIDE FLUSH 10ML SYR IVF SCH ×2 (10:06→19:52)
[2019-07-10] MEDS: POTASSIUM CHLORIDE 20 MEQ TAB.ER.PRT PO SCH (10:19)
[2019-07-10 12:40] LABS: ANION GAP 7 mmol/L (5-15); CALCIUM 7.7 mg/dL (8.5-10.1); CHLORIDE 109 mmol/L (98-107); CREATININE 1.47 mg/dL (0.7-1.3)
[2019-07-10 13:23] VITALS: BP 122/77
[2019-07-10 20:31] VITALS: BP 128/77
[2019-07-11 02:31] VITALS: BP 133/77
[2019-07-11] MEDS: AMPICILLIN/SULBACTAM 3 GM in SODIUM CHLORIDE 0.9% 100 ML IV SCH ×4 (03:26→22:29)
[2019-07-11 05:14] LABS: MEAN CORPUSCULAR HEMOGLOBIN 28.1 pg (27.5-34.5); MEAN CORPUSCULAR HGB CONC 32.1 g/dL (33.2-36.2); MEAN CORPUSCULAR VOLUME 87.4 fL (81-97); MEAN PLATELET VOLUME 8.8 fL (7.4-10.4); PLATELET COUNT 153 x10^3/uL (130-400); RED BLOOD COUNT 3.69 x10^6/uL (4.38-5.82); RED CELL DISTRIBUTION WIDTH 20.5 % (9.4-14.8)
[2019-07-11 05:18] LABS: ALBUMIN 1.7 g/dL (3.4-5.0); ANION GAP 6 mmol/L (5-15); CALCIUM 7.9 mg/dL (8.5-10.1); CHLORIDE 109 mmol/L (98-107)
[2019-07-11 05:22] LABS: ALANINE AMINOTRANSFERASE 17 U/L (12-78); ALKALINE PHOSPHATASE 127 U/L (45-117); BILIRUBIN,TOTAL 0.5 mg/dL (0.2-1.0); CREATININE 1.06 mg/dL (0.7-1.3); TOTAL PROTEIN 5.1 g/dL (6.4-8.2)
[2019-07-11] MEDS: morphine SULFATE 10 MG/ML, 1ML IV PRN (05:53)
[2019-07-11 05:54] LABS: MD YES
[2019-07-11 05:55] LABS: ANISOCYTOSIS 1+; BAND#(MANUAL) 0.55 x10^3/uL; BANDS%(MANUAL) 3 % (0-7); BASOS#(MANUAL) 0.18 x10^3/uL (0-0.1); BASOS% (MANUAL) 1 % (0-1); EOS#(MANUAL) 0.18 x10^3/uL (0.0-0.4); EOS% (MANUAL) 1 % (1-7); LYMPH#(MANUAL) 0.73 x10^3/uL (1-3.4); LYMPHS% (MANUAL) 4 % (22-44); MONOS% (MANUAL) 6 % (2-9); OVALOCYTES 1+; SEG#(MANUAL) 15.56 x10^3/uL (1.8-6.8); SEGS% (MANUAL) 85 % (42-75)
[2019-07-11 05:56] LABS: <PLATELET ESTIMATE> ADEQUATE; <PLT MORPHOLOGY> NORMAL PLT MORPH
[2019-07-11] MEDS: SODIUM CHLORIDE FLUSH 10ML SYR IVF SCH ×2 (08:36→20:51)
[2019-07-11] MEDS: FOLIC ACID 1 MG TABLET PO SCH (08:36)
[2019-07-11] MEDS: SPIRONOLACTONE 100 MG TABLET PO SCH (08:36)
[2019-07-11] MEDS: THIAMINE 100MG TABLET PO SCH ×2 (08:36→20:51)
[2019-07-11] MEDS: PANTOPROZOLE 40MG TABLET PO SCH ×2 (08:36→20:51)
[2019-07-11 09:25] VITALS: BP 132/79
[2019-07-11 13:54] VITALS: BP 123/78
[2019-07-11 19:15] VITALS: BP 134/83
[2019-07-12 02:20] VITALS: BP 102/65
[2019-07-12] MEDS: AMPICILLIN/SULBACTAM 3 GM in SODIUM CHLORIDE 0.9% 100 ML IV SCH ×4 (04:43→22:10)
[2019-07-12 08:36] VITALS: BP 133/77
[2019-07-12] MEDS: FOLIC ACID 1 MG TABLET PO SCH (08:39)
[2019-07-12] MEDS: PANTOPROZOLE 40MG TABLET PO SCH ×2 (08:39→21:09)
[2019-07-12] MEDS: THIAMINE 100MG TABLET PO SCH ×2 (08:39→21:09)
[2019-07-12] MEDS: SPIRONOLACTONE 100 MG TABLET PO SCH (08:41)
[2019-07-12] MEDS: SODIUM CHLORIDE FLUSH 10ML SYR IVF SCH ×2 (08:41→22:10)
[2019-07-12 09:51] LABS: MEAN CORPUSCULAR HEMOGLOBIN 28.6 pg (27.5-34.5); MEAN CORPUSCULAR HGB CONC 32.3 g/dL (33.2-36.2); MEAN CORPUSCULAR VOLUME 88.6 fL (81-97); MEAN PLATELET VOLUME 8.4 fL (7.4-10.4); PLATELET COUNT 160 x10^3/uL (130-400); RED BLOOD COUNT 3.77 x10^6/uL (4.38-5.82); RED CELL DISTRIBUTION WIDTH 20.8 % (9.4-14.8)
[2019-07-12 09:59] LABS: ALANINE AMINOTRANSFERASE 19 U/L (12-78); ALBUMIN 1.7 g/dL (3.4-5.0); ANION GAP 6 mmol/L (5-15); CHLORIDE 107 mmol/L (98-107); CREATININE 1.06 mg/dL (0.7-1.3)
[2019-07-12 10:01] LABS: ALKALINE PHOSPHATASE 117 U/L (45-117); BILIRUBIN,TOTAL 0.5 mg/dL (0.2-1.0); TOTAL PROTEIN 4.9 g/dL (6.4-8.2)
[2019-07-12 10:07] LABS: BASOPHILS # (AUTO) 0.01 x10^3/uL (0-0.1); BASOPHILS % (AUTO) 0 % (0-1); EOSINOPHILS # (AUTO) 0.95 x10^3/uL (0-0.4); EOSINOPHILS % (AUTO) 8 % (1-7); LYMPHOCYTES # (AUTO) 1.13 x10^3/uL (1-3.4); LYMPHOCYTES % (AUTO) 9 % (22-44); MD SCAN; MONOCYTES # (AUTO) 0.57 x10^3/uL (0.2-0.8); MONOCYTES % (AUTO) 5 % (2-9); NEUTROPHILS # (AUTO) 9.84 x10^3/uL (1.8-6.8); NEUTROPHILS % (AUTO) 79 % (42-75)
[2019-07-12 14:05] VITALS: BP 117/72
[2019-07-12 19:39] VITALS: BP 131/80
[2019-07-13 00:46] VITALS: BP 110/66
[2019-07-13] MEDS: AMPICILLIN/SULBACTAM 3 GM in SODIUM CHLORIDE 0.9% 100 ML IV SCH ×3 (07:35→18:30)
[2019-07-13 07:37] VITALS: BP 116/75
[2019-07-13 08:56] LABS: MEAN CORPUSCULAR HEMOGLOBIN 27.9 pg (27.5-34.5); MEAN CORPUSCULAR HGB CONC 32.3 g/dL (33.2-36.2); MEAN CORPUSCULAR VOLUME 86.5 fL (81-97); PLATELET COUNT 142 x10^3/uL (130-400); RED BLOOD COUNT 3.66 x10^6/uL (4.38-5.82); RED CELL DISTRIBUTION WIDTH 20.3 % (9.4-14.8)
[2019-07-13 09:04] LABS: ANION GAP 6 mmol/L (5-15); CALCIUM 7.8 mg/dL (8.5-10.1); CHLORIDE 109 mmol/L (98-107); CREATININE 1.05 mg/dL (0.7-1.3)
[2019-07-13 09:19] LABS: BASOPHILS # (AUTO) 0.07 x10^3/uL (0-0.1); BASOPHILS % (AUTO) 1 % (0-1); EOSINOPHILS # (AUTO) 1.98 x10^3/uL (0-0.4); EOSINOPHILS % (AUTO) 16 % (1-7); LYMPHOCYTES # (AUTO) 1.41 x10^3/uL (1-3.4); LYMPHOCYTES % (AUTO) 12 % (22-44); MD SCAN; MONOCYTES # (AUTO) 0.62 x10^3/uL (0.2-0.8); MONOCYTES % (AUTO) 5 % (2-9); NEUTROPHILS # (AUTO) 8.07 x10^3/uL (1.8-6.8); NEUTROPHILS % (AUTO) 67 % (42-75)
[2019-07-13] MEDS: PANTOPROZOLE 40MG TABLET PO SCH ×2 (09:57→20:14)
[2019-07-13] MEDS: SPIRONOLACTONE 100 MG TABLET PO SCH (09:57)
[2019-07-13] MEDS: FOLIC ACID 1 MG TABLET PO SCH (09:57)
[2019-07-13] MEDS: THIAMINE 100MG TABLET PO SCH ×2 (09:57→20:14)
[2019-07-13] MEDS: SODIUM CHLORIDE FLUSH 10ML SYR IVF SCH ×2 (09:57→20:17)
[2019-07-13 13:42] VITALS: BP 126/76
[2019-07-13 19:23] VITALS: BP 147/84
[2019-07-13] MEDS: morphine SULFATE 10 MG/ML, 1ML IV PRN (20:14)
[2019-07-14] MEDS: AMPICILLIN/SULBACTAM 3 GM in SODIUM CHLORIDE 0.9% 100 ML IV SCH ×4 (00:41→18:58)
[2019-07-14 01:28] VITALS: BP 128/76
[2019-07-14 04:47] LABS: MEAN CORPUSCULAR HEMOGLOBIN 28.7 pg (27.5-34.5); MEAN CORPUSCULAR HGB CONC 33.3 g/dL (33.2-36.2); MEAN CORPUSCULAR VOLUME 86.2 fL (81-97); MEAN PLATELET VOLUME 8.8 fL (7.4-10.4); PLATELET COUNT 133 x10^3/uL (130-400); RED BLOOD COUNT 3.43 x10^6/uL (4.38-5.82); RED CELL DISTRIBUTION WIDTH 20.7 % (9.4-14.8)
[2019-07-14 04:58] LABS: ANION GAP 2 mmol/L (5-15); CALCIUM 7.8 mg/dL (8.5-10.1); CHLORIDE 110 mmol/L (98-107)
[2019-07-14 04:59] LABS: CREATININE 1.01 mg/dL (0.7-1.3)
[2019-07-14 05:57] LABS: BASOPHILS # (AUTO) 0.02 x10^3/uL (0-0.1); BASOPHILS % (AUTO) 0 % (0-1); EOSINOPHILS # (AUTO) 2.05 x10^3/uL (0-0.4); EOSINOPHILS % (AUTO) 18 % (1-7); LYMPHOCYTES # (AUTO) 1.23 x10^3/uL (1-3.4); LYMPHOCYTES % (AUTO) 11 % (22-44); MD SCAN; MONOCYTES # (AUTO) 0.83 x10^3/uL (0.2-0.8); MONOCYTES % (AUTO) 7 % (2-9); NEUTROPHILS # (AUTO) 7.55 x10^3/uL (1.8-6.8); NEUTROPHILS % (AUTO) 65 % (42-75)
[2019-07-14] MEDS: THIAMINE 100MG TABLET PO SCH ×2 (07:50→20:55)
[2019-07-14] MEDS: FOLIC ACID 1 MG TABLET PO SCH (07:51)
[2019-07-14] MEDS: SODIUM CHLORIDE FLUSH 10ML SYR IVF SCH ×2 (07:51→20:55)
[2019-07-14] MEDS: PANTOPROZOLE 40MG TABLET PO SCH ×2 (07:51→20:55)
[2019-07-14] MEDS: SPIRONOLACTONE 100 MG TABLET PO SCH (07:51)
[2019-07-14 08:07] VITALS: BP 129/82
[2019-07-14] MEDS: FUROSEMIDE 80 MG TABLET PO SCH (13:07)
[2019-07-14 14:55] VITALS: BP 107/69
[2019-07-14 20:03] VITALS: BP 124/76
[2019-07-15 01:16] VITALS: BP 114/70
[2019-07-15] MEDS: AMPICILLIN/SULBACTAM 3 GM in SODIUM CHLORIDE 0.9% 100 ML IV SCH ×4 (01:21→18:36)
[2019-07-15 04:49] LABS: BASOPHILS # (AUTO) 0.04 x10^3/uL (0-0.1); BASOPHILS % (AUTO) 0 % (0-1); EOSINOPHILS # (AUTO) 1.44 x10^3/uL (0-0.4); EOSINOPHILS % (AUTO) 15 % (1-7); LYMPHOCYTES # (AUTO) 1.09 x10^3/uL (1-3.4); LYMPHOCYTES % (AUTO) 11 % (22-44); MD NO; MEAN CORPUSCULAR HEMOGLOBIN 28.5 pg (27.5-34.5); MEAN CORPUSCULAR HGB CONC 32.9 g/dL (33.2-36.2); MEAN CORPUSCULAR VOLUME 86.9 fL (81-97); MEAN PLATELET VOLUME 8.3 fL (7.4-10.4); MONOCYTES # (AUTO) 0.73 x10^3/uL (0.2-0.8); MONOCYTES % (AUTO) 8 % (2-9); NEUTROPHILS % (AUTO) 66 % (42-75); PLATELET COUNT 109 x10^3/uL (130-400)
[2019-07-15 05:00] LABS: ALANINE AMINOTRANSFERASE 18 U/L (12-78); ALBUMIN 1.5 g/dL (3.4-5.0); ANION GAP 4 mmol/L (5-15); CALCIUM 7.3 mg/dL (8.5-10.1); CHLORIDE 111 mmol/L (98-107)
[2019-07-15 05:03] LABS: ALKALINE PHOSPHATASE 144 U/L (45-117); BILIRUBIN,TOTAL 0.4 mg/dL (0.2-1.0); TOTAL PROTEIN 4.2 g/dL (6.4-8.2)
[2019-07-15 06:54] VITALS: BP 111/71
[2019-07-15] MEDS: PANTOPROZOLE 40MG TABLET PO SCH ×2 (08:50→20:49)
[2019-07-15] MEDS: FUROSEMIDE 80 MG TABLET PO SCH (08:50)
[2019-07-15] MEDS: FOLIC ACID 1 MG TABLET PO SCH (08:50)
[2019-07-15] MEDS: SPIRONOLACTONE 100 MG TABLET PO SCH (08:50)
[2019-07-15] MEDS: THIAMINE 100MG TABLET PO SCH ×2 (08:50→20:49)
[2019-07-15] MEDS: SODIUM CHLORIDE FLUSH 10ML SYR IVF SCH ×2 (08:52→20:47)
[2019-07-15 12:39] VITALS: BP 105/67
[2019-07-15] MEDS: HYDROcodone/APAP 5/325 TABLET PO PRN ×2 (16:11→20:50)
[2019-07-15 19:29] VITALS: BP 113/70
[2019-07-15] MEDS ORDERED: MAGNESIUM SULFATE PMX 2GM/50ML 50 ML IV ONE (21:30)
[2019-07-16] MEDS: AMPICILLIN/SULBACTAM 3 GM in SODIUM CHLORIDE 0.9% 100 ML IV SCH ×2 (01:09→06:24)
[2019-07-16 01:15] VITALS: BP 107/65
[2019-07-16 06:09] LABS: BASOPHILS # (AUTO) 0.03 x10^3/uL (0-0.1); BASOPHILS % (AUTO) 1 % (0-1); EOSINOPHILS # (AUTO) 1.02 x10^3/uL (0-0.4); EOSINOPHILS % (AUTO) 17 % (1-7); LYMPHOCYTES # (AUTO) 1.06 x10^3/uL (1-3.4); LYMPHOCYTES % (AUTO) 17 % (22-44); MD NO; MEAN CORPUSCULAR HEMOGLOBIN 28.1 pg (27.5-34.5); MEAN CORPUSCULAR HGB CONC 32.7 g/dL (33.2-36.2); MEAN CORPUSCULAR VOLUME 85.9 fL (81-97); MEAN PLATELET VOLUME 8.7 fL (7.4-10.4); MONOCYTES # (AUTO) 0.52 x10^3/uL (0.2-0.8); MONOCYTES % (AUTO) 9 % (2-9); NEUTROPHILS # (AUTO) 3.51 x10^3/uL (1.8-6.8); NEUTROPHILS % (AUTO) 57 % (42-75); PLATELET COUNT 101 x10^3/uL (130-400); RED BLOOD COUNT 3.29 x10^6/uL (4.38-5.82); RED CELL DISTRIBUTION WIDTH 20.1 % (9.4-14.8)
[2019-07-16 08:12] VITALS: BP 108/70
[2019-07-16] MEDS: THIAMINE 100MG TABLET PO SCH ×2 (08:58→21:30)
[2019-07-16] MEDS: PANTOPROZOLE 40MG TABLET PO SCH ×2 (08:58→21:30)
[2019-07-16] MEDS: SPIRONOLACTONE 100 MG TABLET PO SCH (08:58)
[2019-07-16] MEDS: FOLIC ACID 1 MG TABLET PO SCH (08:58)
[2019-07-16] MEDS: FUROSEMIDE 80 MG TABLET PO SCH (08:59)
[2019-07-16] MEDS: SODIUM CHLORIDE FLUSH 10ML SYR IVF SCH ×2 (08:59→21:32)
[2019-07-16] MEDS: CEFTRIAXONE PMX 2GM/50ML 50 ML IV SCH (10:00)
[2019-07-16 13:25] VITALS: BP 111/73
[2019-07-16] MEDS ORDERED: LIDOCAINE 1%, 10ML ONE (13:45)
[2019-07-16 13:46] VITALS: BP 117/77
[2019-07-16] MEDS: HYDROcodone/APAP 5/325 TABLET PO PRN ×2 (15:03→21:30)
[2019-07-16 19:31] VITALS: BP 105/68
[2019-07-17 01:12] VITALS: BP 96/61
[2019-07-17 07:00] VITALS: BP 111/68
[2019-07-17 07:02] LABS: BASOPHILS # (AUTO) 0.04 x10^3/uL (0-0.1); BASOPHILS % (AUTO) 1 % (0-1); EOSINOPHILS # (AUTO) 1.01 x10^3/uL (0-0.4); EOSINOPHILS % (AUTO) 18 % (1-7); LYMPHOCYTES # (AUTO) 1.02 x10^3/uL (1-3.4); LYMPHOCYTES % (AUTO) 18 % (22-44); MD NO; MEAN CORPUSCULAR HGB CONC 32.5 g/dL (33.2-36.2); MEAN PLATELET VOLUME 8.6 fL (7.4-10.4); MONOCYTES # (AUTO) 0.51 x10^3/uL (0.2-0.8); MONOCYTES % (AUTO) 9 % (2-9); NEUTROPHILS % (AUTO) 55 % (42-75); PLATELET COUNT 109 x10^3/uL (130-400); RED BLOOD COUNT 3.31 x10^6/uL (4.38-5.82); RED CELL DISTRIBUTION WIDTH 19.6 % (9.4-14.8)
[2019-07-17 07:09] LABS: CALCIUM 7.6 mg/dL (8.5-10.1); CREATININE 0.96 mg/dL (0.7-1.3)
[2019-07-17 07:17] LABS: ANION GAP 4 mmol/L (5-15); CHLORIDE 110 mmol/L (98-107)
[2019-07-17] MEDS: FOLIC ACID 1 MG TABLET PO SCH (09:13)
[2019-07-17] MEDS: SPIRONOLACTONE 100 MG TABLET PO SCH (09:13)
[2019-07-17] MEDS: SODIUM CHLORIDE FLUSH 10ML SYR IVF SCH ×2 (09:13→21:03)
[2019-07-17] MEDS: PANTOPROZOLE 40MG TABLET PO SCH ×2 (09:13→21:03)
[2019-07-17] MEDS: FUROSEMIDE 80 MG TABLET PO SCH (09:13)
[2019-07-17] MEDS: THIAMINE 100MG TABLET PO SCH ×2 (09:13→21:03)
[2019-07-17] MEDS: CEFTRIAXONE PMX 2GM/50ML 50 ML IV SCH (10:05)
[2019-07-17] MEDS: HYDROcodone/APAP 5/325 TABLET PO PRN ×2 (10:51→18:14)
[2019-07-17 13:22] VITALS: BP 112/72
[2019-07-17 19:13] VITALS: BP 115/72
[2019-07-18 02:17] VITALS: BP 120/82
[2019-07-18 04:44] LABS: BASOPHILS # (AUTO) 0.04 x10^3/uL (0-0.1); BASOPHILS % (AUTO) 1 % (0-1); EOSINOPHILS # (AUTO) 0.92 x10^3/uL (0-0.4); EOSINOPHILS % (AUTO) 17 % (1-7); LYMPHOCYTES # (AUTO) 1.01 x10^3/uL (1-3.4); LYMPHOCYTES % (AUTO) 18 % (22-44); MD NO; MEAN CORPUSCULAR HEMOGLOBIN 28.5 pg (27.5-34.5); MEAN CORPUSCULAR HGB CONC 33.1 g/dL (33.2-36.2); MEAN CORPUSCULAR VOLUME 86.1 fL (81-97); MEAN PLATELET VOLUME 9.1 fL (7.4-10.4); MONOCYTES # (AUTO) 0.52 x10^3/uL (0.2-0.8); MONOCYTES % (AUTO) 10 % (2-9); NEUTROPHILS # (AUTO) 2.99 x10^3/uL (1.8-6.8); NEUTROPHILS % (AUTO) 55 % (42-75); PLATELET COUNT 108 x10^3/uL (130-400); RED BLOOD COUNT 3.23 x10^6/uL (4.38-5.82); RED CELL DISTRIBUTION WIDTH 19.2 % (9.4-14.8)
[2019-07-18 04:51] LABS: ALBUMIN 1.6 g/dL (3.4-5.0); ANION GAP 4 mmol/L (5-15); CALCIUM 7.6 mg/dL (8.5-10.1); CHLORIDE 109 mmol/L (98-107)
[2019-07-18 04:55] LABS: ALANINE AMINOTRANSFERASE 19 U/L (12-78); ALKALINE PHOSPHATASE 131 U/L (45-117); BILIRUBIN,TOTAL 0.5 mg/dL (0.2-1.0); CREATININE 0.94 mg/dL (0.7-1.3); TOTAL PROTEIN 4.4 g/dL (6.4-8.2)
[2019-07-18] MEDS: HYDROcodone/APAP 5/325 TABLET PO PRN ×3 (07:36→20:33)
[2019-07-18 08:27] VITALS: BP 112/70
[2019-07-18] MEDS: SODIUM CHLORIDE FLUSH 10ML SYR IVF SCH ×2 (09:00→20:32)
[2019-07-18] MEDS: THIAMINE 100MG TABLET PO SCH ×2 (09:00→20:32)
[2019-07-18] MEDS: PANTOPROZOLE 40MG TABLET PO SCH ×2 (09:07→20:32)
[2019-07-18] MEDS: SPIRONOLACTONE 100 MG TABLET PO SCH (09:07)
[2019-07-18] MEDS: FUROSEMIDE 80 MG TABLET PO SCH (09:07)
[2019-07-18] MEDS: FOLIC ACID 1 MG TABLET PO SCH (09:07)
[2019-07-18] MEDS: CEFTRIAXONE PMX 2GM/50ML 50 ML IV SCH (11:36)
[2019-07-18 13:23] VITALS: BP 100/54
[2019-07-18 19:35] VITALS: BP 117/76
[2019-07-19 01:22] VITALS: BP 105/66
[2019-07-19 07:52] VITALS: BP 126/74
[2019-07-19] MEDS: SODIUM CHLORIDE FLUSH 10ML SYR IVF SCH ×2 (09:33→20:29)
[2019-07-19] MEDS: THIAMINE 100MG TABLET PO SCH ×2 (09:33→20:29)
[2019-07-19] MEDS: FUROSEMIDE 80 MG TABLET PO SCH (09:33)
[2019-07-19] MEDS: SPIRONOLACTONE 100 MG TABLET PO SCH (09:33)
[2019-07-19] MEDS: FOLIC ACID 1 MG TABLET PO SCH (09:33)
[2019-07-19] MEDS: PANTOPROZOLE 40MG TABLET PO SCH ×2 (09:34→20:29)
[2019-07-19] MEDS: HYDROcodone/APAP 5/325 TABLET PO PRN ×3 (09:39→23:12)
[2019-07-19] MEDS: CEFTRIAXONE PMX 2GM/50ML 50 ML IV SCH (10:09)
[2019-07-19 14:06] VITALS: BP 124/70
[2019-07-19 19:38] VITALS: BP 102/53
[2019-07-20 02:57] VITALS: BP 99/62
[2019-07-20 07:11] VITALS: BP 112/65
[2019-07-20] MEDS: CEFTRIAXONE PMX 2GM/50ML 50 ML IV SCH (10:10)
[2019-07-20] MEDS: SODIUM CHLORIDE FLUSH 10ML SYR IVF SCH ×2 (10:11→20:56)
[2019-07-20] MEDS ORDERED: MORPHINE SULFATE 4 MG/ML, 1ML ONE (11:21)
[2019-07-20] MEDS ORDERED: MORPHINE SULFATE 4 MG/ML, 1ML IVPush ONE (11:30)
[2019-07-20 12:35] VITALS: BP 107/62
[2019-07-20] MEDS ORDERED: LIDOCAINE 1%, 10ML ONE (13:20)
[2019-07-20] MEDS: FUROSEMIDE 80 MG TABLET PO SCH (15:05)
[2019-07-20] MEDS: THIAMINE 100MG TABLET PO SCH ×2 (15:05→20:56)
[2019-07-20] MEDS: SPIRONOLACTONE 100 MG TABLET PO SCH (15:05)
[2019-07-20] MEDS: PANTOPROZOLE 40MG TABLET PO SCH ×2 (15:05→20:56)
[2019-07-20] MEDS: FOLIC ACID 1 MG TABLET PO SCH (15:05)
[2019-07-20] MEDS: HYDROcodone/APAP 5/325 TABLET PO PRN (15:06)
[2019-07-20 19:32] VITALS: BP 111/67
[2019-07-21 01:23] VITALS: BP 99/63
[2019-07-21] MEDS ORDERED: MORPHINE SULFATE 4 MG/ML, 1ML IVPush ONE (06:00)
[2019-07-21 07:10] VITALS: BP 103/65
[2019-07-21] MEDS: SPIRONOLACTONE 100 MG TABLET PO SCH (10:23)
[2019-07-21] MEDS: SODIUM CHLORIDE FLUSH 10ML SYR IVF SCH ×2 (10:23→21:00)
[2019-07-21] MEDS: FOLIC ACID 1 MG TABLET PO SCH (10:23)
[2019-07-21] MEDS: FUROSEMIDE 80 MG TABLET PO SCH (10:23)
[2019-07-21] MEDS: THIAMINE 100MG TABLET PO SCH ×2 (10:23→19:49)
[2019-07-21] MEDS: PANTOPROZOLE 40MG TABLET PO SCH ×2 (10:23→19:49)
[2019-07-21] MEDS: CEFTRIAXONE PMX 2GM/50ML 50 ML IV SCH (10:23)
[2019-07-21 13:19] VITALS: BP 109/68
[2019-07-21 15:20] LABS: BASOPHILS # (AUTO) 0.06 x10^3/uL (0-0.1); BASOPHILS % (AUTO) 1 % (0-1); EOSINOPHILS # (AUTO) 1.23 x10^3/uL (0-0.4); EOSINOPHILS % (AUTO) 18 % (1-7); LYMPHOCYTES # (AUTO) 1.11 x10^3/uL (1-3.4); LYMPHOCYTES % (AUTO) 16 % (22-44); MD NO; MEAN CORPUSCULAR HEMOGLOBIN 27.8 pg (27.5-34.5); MEAN CORPUSCULAR HGB CONC 32.7 g/dL (33.2-36.2); MEAN PLATELET VOLUME 9.1 fL (7.4-10.4); MONOCYTES # (AUTO) 0.41 x10^3/uL (0.2-0.8); MONOCYTES % (AUTO) 6 % (2-9); NEUTROPHILS # (AUTO) 4.12 x10^3/uL (1.8-6.8); NEUTROPHILS % (AUTO) 60 % (42-75); PLATELET COUNT 125 x10^3/uL (130-400); RED BLOOD COUNT 3.51 x10^6/uL (4.38-5.82)
[2019-07-21 15:27] LABS: ALANINE AMINOTRANSFERASE 23 U/L (12-78); ALBUMIN 1.8 g/dL (3.4-5.0); ANION GAP 5 mmol/L (5-15); CALCIUM 7.9 mg/dL (8.5-10.1); CHLORIDE 103 mmol/L (98-107); CREATININE 0.88 mg/dL (0.7-1.3)
[2019-07-21 15:29] LABS: ALKALINE PHOSPHATASE 168 U/L (45-117); BILIRUBIN,TOTAL 0.4 mg/dL (0.2-1.0); TOTAL PROTEIN 5.3 g/dL (6.4-8.2)
[2019-07-21 20:57] VITALS: BP 101/66
[2019-07-22 02:20] VITALS: BP 98/63
[2019-07-22 05:17] LABS: BASOPHILS # (AUTO) 0.06 x10^3/uL (0-0.1); BASOPHILS % (AUTO) 1 % (0-1); EOSINOPHILS # (AUTO) 1.22 x10^3/uL (0-0.4); EOSINOPHILS % (AUTO) 19 % (1-7); LYMPHOCYTES # (AUTO) 1.25 x10^3/uL (1-3.4); LYMPHOCYTES % (AUTO) 20 % (22-44); MD NO; MEAN CORPUSCULAR HEMOGLOBIN 28.7 pg (27.5-34.5); MEAN CORPUSCULAR HGB CONC 33.5 g/dL (33.2-36.2); MEAN CORPUSCULAR VOLUME 85.6 fL (81-97); MEAN PLATELET VOLUME 9.5 fL (7.4-10.4); MONOCYTES # (AUTO) 0.43 x10^3/uL (0.2-0.8); MONOCYTES % (AUTO) 7 % (2-9); NEUTROPHILS # (AUTO) 3.35 x10^3/uL (1.8-6.8); NEUTROPHILS % (AUTO) 53 % (42-75); PLATELET COUNT 112 x10^3/uL (130-400); RED BLOOD COUNT 3.07 x10^6/uL (4.38-5.82); RED CELL DISTRIBUTION WIDTH 18.9 % (9.4-14.8)
[2019-07-22 05:23] LABS: HCT (SEDRATE) 26.5 % (39.2-51.8)
[2019-07-22 05:26] LABS: ALBUMIN 1.7 g/dL (3.4-5.0); CHLORIDE 107 mmol/L (98-107)
[2019-07-22 05:32] LABS: ALANINE AMINOTRANSFERASE 19 U/L (12-78); ALKALINE PHOSPHATASE 137 U/L (45-117); ANION GAP 5 mmol/L (5-15); BILIRUBIN,TOTAL 0.4 mg/dL (0.2-1.0); C-REACTIVE PROTEIN, QUANT 0.73 mg/dL (0.02-0.49); CALCIUM 8.1 mg/dL (8.5-10.1); CREATININE 0.81 mg/dL (0.7-1.3); TOTAL PROTEIN 4.6 g/dL (6.4-8.2)
[2019-07-22 07:02] VITALS: BP 94/55
[2019-07-22] MEDS: SODIUM CHLORIDE FLUSH 10ML SYR IVF SCH (09:00)
[2019-07-22] MEDS: THIAMINE 100MG TABLET PO SCH (09:33)
[2019-07-22] MEDS: FOLIC ACID 1 MG TABLET PO SCH (09:33)
[2019-07-22] MEDS: FUROSEMIDE 80 MG TABLET PO SCH (09:33)
[2019-07-22] MEDS: SPIRONOLACTONE 100 MG TABLET PO SCH (09:33)
[2019-07-22] MEDS: PANTOPROZOLE 40MG TABLET PO SCH (09:33)
[2019-07-22] MEDS: CEFTRIAXONE PMX 2GM/50ML 50 ML IV SCH (10:12)
[2019-07-22 12:25] VITALS: BP 117/73
[2019-07-22] MEDS ORDERED: PANT40TA5 PO (13:28)
[2019-07-22] MEDS ORDERED: THIA100T67 PO (13:28)
== END 2019-07-22 16:00 | disposition home or self-care (01) | DRG 720 ==
LOC: ED 23:22 → EDIP 23:59 → 3N 07-03 → 4NE 07-09 18:56 → DCLOUNGE 07-22 15:50
PROVIDERS: ADMIT Family Medicine; ATTEND Internal Medicine
PROC: 0W9B3ZZ Drainage of Left Pleural Cavity, Percutaneous Approach (ICD-10-PCS; 2019-07-02)
PROC: 0W9G3ZZ Drainage of Peritoneal Cavity, Percutaneous Approach (ICD-10-PCS; 2019-07-02)
PROC: 0W9G3ZZ Drainage of Peritoneal Cavity, Percutaneous Approach (ICD-10-PCS; 2019-07-05)
PROC: 0W9B30Z Drainage of Left Pleural Cavity with Drainage Device, Percutaneous Approach (ICD-10-PCS; principal; 2019-07-09 17:00)
PROC: 0W9G3ZZ Drainage of Peritoneal Cavity, Percutaneous Approach (ICD-10-PCS; 2019-07-16)
PROC: 02HV33Z Insertion of Infusion Device into Superior Vena Cava, Percutaneous Approach (ICD-10-PCS; 2019-07-18)
PROC: B5181ZA Fluoroscopy of Superior Vena Cava using Low Osmolar Contrast, Guidance (ICD-10-PCS; 2019-07-18)
PROC: B548ZZA Ultrasonography of Superior Vena Cava, Guidance (ICD-10-PCS; 2019-07-18)
PROC: 0W9G3ZZ Drainage of Peritoneal Cavity, Percutaneous Approach (ICD-10-PCS; 2019-07-20)
DX: A41.9 Sepsis, unspecified organism (principal); E43 Unspecified severe protein-calorie malnutrition; N17.9 Acute kidney failure, unspecified; D69.6 Thrombocytopenia, unspecified; J18.9 Pneumonia, unspecified organism; I85.00 Esophageal varices without bleeding; D72.1 Eosinophilia; D63.8 Anemia in other chronic diseases classified elsewhere; B95.2 Enterococcus as the cause of diseases classified elsewhere; Z68.32 Body mass index [BMI] 32.0-32.9, adult; F10.20 Alcohol dependence, uncomplicated; F17.200 Nicotine dependence, unspecified, uncomplicated; J44.0 Chronic obstructive pulmonary disease with (acute) lower respiratory infection; K70.31 Alcoholic cirrhosis of liver with ascites; K72.90 Hepatic failure, unspecified without coma; K76.6 Portal hypertension; N18.9 Chronic kidney disease, unspecified; I12.9 Hypertensive chronic kidney disease with stage 1 through stage 4 chronic kidney disease, or unspecified chronic kidney disease; N39.0 Urinary tract infection, site not specified; Z82.49 Family history of ischemic heart disease and other diseases of the circulatory system; Z91.19 Patient's noncompliance with other medical treatment and regimen
CPT/HCPCS: J3490; S0020; 32555; 36415; 36573; 49083; 71045; 71250; 80048; 80053; 81001; 82436; 82570; 82945; 82962; 83605; 83690; 83735; 83880; 84100; 84133; 84145; 84157; 84300; 85025; 85610; 85651; 86140; 87040; 87070; 87077; 87086; 87181; 87186; 87205; 87400; 89051; 93005; 93306; 93970; 99291; C1729; G0378; J0171; J0295; J0696; J1100; J1170; J1940; J2250; J2405; J2704; J3010; P9045; C1751; C9113; J2270; J2370; J3475

== ENCOUNTER 2019-08-08 11:17 | Inpatient (IN) | payer MEDICAID ==
[~2019-08-08] VITALS: Ht 170.2 cm; Wt 88.5 kg
[~2019-08-08 11:17] MED LIST changes: +PANT40TA5 PO
--- NOTE | 2019-08-08 11:57 | NUR ---
pt was code 250 from infusion center, pt had temp of 102 upon arrival for abx infusion. Pt reports headache started 2 nights ago. pt awake and alert, NADN, resting comfortably on gurney, VSS.
[2019-08-08] MEDS ORDERED: SODIUM CHLORIDE FLUSH 10ML SYR IVF ONE (12:30)
[2019-08-08 12:31] LABS: ALBUMIN 2.3 g/dL (3.4-5.0); ANION GAP 6 mmol/L (5-15); CALCIUM 8.2 mg/dL (8.5-10.1); CHLORIDE 109 mmol/L (98-107)
[2019-08-08 12:38] LABS: ALANINE AMINOTRANSFERASE 29 U/L (12-78); ALKALINE PHOSPHATASE 149 U/L (45-117); BILIRUBIN,TOTAL 0.7 mg/dL (0.2-1.0); CREATININE 1.17 mg/dL (0.7-1.3); TOTAL PROTEIN 6.1 g/dL (6.4-8.2); TROPONIN I < 0.015 ng/mL (0.000-0.045)
[2019-08-08 12:54] LABS: MEAN CORPUSCULAR HEMOGLOBIN 28.8 pg (27.5-34.5); MEAN CORPUSCULAR HGB CONC 33.1 g/dL (33.2-36.2); MEAN CORPUSCULAR VOLUME 87.1 fL (81-97); MEAN PLATELET VOLUME 10.2 fL (7.4-10.4); PLATELET COUNT 65 x10^3/uL (130-400); RED BLOOD COUNT 3.86 x10^6/uL (4.38-5.82)
[2019-08-08 12:56] LABS: BASOPHILS # (AUTO) 0.02 x10^3/uL (0-0.1); BASOPHILS % (AUTO) 1 % (0-1); EOSINOPHILS # (AUTO) 0.23 x10^3/uL (0-0.4); EOSINOPHILS % (AUTO) 6 % (1-7); LYMPHOCYTES # (AUTO) 0.55 x10^3/uL (1-3.4); LYMPHOCYTES % (AUTO) 15 % (22-44); MD SCAN; MONOCYTES # (AUTO) 0.32 x10^3/uL (0.2-0.8); MONOCYTES % (AUTO) 9 % (2-9); NEUTROPHILS # (AUTO) 2.57 x10^3/uL (1.8-6.8); NEUTROPHILS % (AUTO) 70 % (42-75)
[2019-08-08 13:37] LABS: RAPID INFLUENZA A Negative (Negative); RAPID INFLUENZA B Negative (Negative)
[2019-08-08] MEDS ORDERED: VANCOMYCIN 1,700 MG in SODIUM CHLORIDE 0.9% 250 ML IV ONE (14:00)
[2019-08-08] MEDS ORDERED: VANCOMYCIN PER PHARMACY MC PRN ×2 (14:00→15:00)
[2019-08-08] MEDS ORDERED: CEFEPIME 1 GM in DEXTROSE 5% 50 ML IV ONE (14:00)
[2019-08-08] MEDS ORDERED: PROMETHAZINE 25 MG/ML, 1ML IM PRN (15:00)
[2019-08-08] MEDS ORDERED: hydrALAzine 20 MG/ML, 1ML IVPush PRN (15:00)
[2019-08-08] MEDS ORDERED: ACETAMINOPHEN 325 MG TABLET PO PRN (15:00)
[2019-08-08] MEDS ORDERED: LABETALOL 5MG/ML, 20ML IVPush PRN (15:00)
[2019-08-08] MEDS ORDERED: ONDANSETRON 2MG/ML, 2ML IVPush PRN (15:00)
[2019-08-08] MEDS ORDERED: PHARMACOKINETIC MONITORING MC PRN (17:00)
[2019-08-08] MEDS ORDERED: VANCOMYCIN 1,700 MG in SODIUM CHLORIDE 0.9% 250 ML IV SCH (17:00)
[2019-08-08] MEDS ORDERED: DOXYCYCLINE 100 MG in DEXTROSE 5% 250 ML IV SCH (17:00)
[2019-08-08 17:43] LABS: INTERNATIONAL NORMALIZED RATIO 1.08 (0.93-1.1); PROTHROMBIN TIME 11.3 Seconds (9.6-11.5)
[2019-08-08] MEDS ORDERED: OMNIPAQUE 350 MG/ML, 150 ML BOTTLE ONE (17:59)
[2019-08-08 19:11] VITALS: BP 105/61
[2019-08-08] MEDS: THIAMINE 100MG TABLET PO SCH (20:31)
[2019-08-08] MEDS: ACETAMINOPHEN 325 MG TABLET PO PRN (20:31)
[2019-08-08] MEDS: PANTOPROZOLE 40MG TABLET PO SCH (20:31)
[2019-08-08] MEDS: SODIUM CHLORIDE 0.9% 1,000 ML IV SCH (20:33)
[2019-08-08] MEDS: PIPERACILLIN/TAZO/PMX 4.5GM 100 ML IV SCH (22:15)
[2019-08-09] MEDS: VANCOMYCIN 1,700 MG in SODIUM CHLORIDE 0.9% 250 ML IV SCH ×2 (01:55→13:49)
[2019-08-09] MEDS: SODIUM CHLORIDE 0.9% 1,000 ML IV SCH (02:00)
[2019-08-09 02:17] VITALS: BP 97/57
[2019-08-09] MEDS: PIPERACILLIN/TAZO/PMX 4.5GM 100 ML IV SCH ×4 (04:42→21:43)
[2019-08-09] MEDS: HEPARIN 5,000 UNITS/ML, 1ML SQ SCH ×3 (04:42→20:00)
[2019-08-09 05:27] LABS: MEAN CORPUSCULAR HEMOGLOBIN 28.8 pg (27.5-34.5); MEAN CORPUSCULAR HGB CONC 32.7 g/dL (33.2-36.2); MEAN CORPUSCULAR VOLUME 87.9 fL (81-97); RED BLOOD COUNT 3.24 x10^6/uL (4.38-5.82); RED CELL DISTRIBUTION WIDTH 16.8 % (9.4-14.8)
[2019-08-09] MEDS: PANTOPROZOLE 40MG TABLET PO SCH ×2 (05:27→15:30)
[2019-08-09 05:29] LABS: CHLORIDE 112 mmol/L (98-107)
[2019-08-09 05:39] LABS: ALANINE AMINOTRANSFERASE 24 U/L (12-78); ALBUMIN 1.8 g/dL (3.4-5.0); ALKALINE PHOSPHATASE 105 U/L (45-117); ANION GAP 5 mmol/L (5-15); BILIRUBIN,TOTAL 0.6 mg/dL (0.2-1.0); CALCIUM 7.1 mg/dL (8.5-10.1); CREATININE 1.22 mg/dL (0.7-1.3); TOTAL PROTEIN 4.4 g/dL (6.4-8.2)
[2019-08-09 05:52] LABS: MEAN PLATELET VOLUME 10.5 fL (7.4-10.4); PLATELET COUNT 59 x10^3/uL (130-400)
[2019-08-09 05:53] LABS: MD YES
[2019-08-09 05:58] LABS: BAND#(MANUAL) 0.38 x10^3/uL; BANDS%(MANUAL) 12 % (0-7); EOS% (MANUAL) 3 % (1-7); LYMPH#(MANUAL) 0.61 x10^3/uL (1-3.4); LYMPHS% (MANUAL) 19 % (22-44); MONOS#(MANUAL) 0.26 x10^3/uL (0.3-2.7); MONOS% (MANUAL) 8 % (2-9); SEG#(MANUAL) 1.86 x10^3/uL (1.8-6.8); SEGS% (MANUAL) 58 % (42-75)
[2019-08-09 05:59] LABS: <PLATELET ESTIMATE> DECREASED; ANISOCYTOSIS 1+
[2019-08-09 06:00] LABS: <PLT MORPHOLOGY> NORMAL PLT MORPH
[2019-08-09 07:31] VITALS: BP 103/64
[2019-08-09] MEDS: THIAMINE 100MG TABLET PO SCH ×2 (07:41→21:43)
[2019-08-09] MEDS: ACETAMINOPHEN 325 MG TABLET PO PRN (07:41)
[2019-08-09] MEDS: AZITHROMYCIN 500 MG TABLET PO SCH (12:05)
[2019-08-09 13:46] VITALS: BP 105/69
[2019-08-09 18:14] LABS: MICROSCOPIC INDICATED
[2019-08-09 19:14] VITALS: BP 91/63
[2019-08-09 19:16] LABS: CULTURE INDICATED? YES
[2019-08-10 01:01] VITALS: BP 95/61
[2019-08-10 01:58] LABS: MEAN CORPUSCULAR HEMOGLOBIN 27.9 pg (27.5-34.5); MEAN CORPUSCULAR HGB CONC 32.5 g/dL (33.2-36.2); MEAN CORPUSCULAR VOLUME 85.8 fL (81-97); MEAN PLATELET VOLUME 9.8 fL (7.4-10.4); PLATELET COUNT 51 x10^3/uL (130-400); RED BLOOD COUNT 3.29 x10^6/uL (4.38-5.82); RED CELL DISTRIBUTION WIDTH 16.9 % (9.4-14.8)
[2019-08-10 02:07] LABS: ALANINE AMINOTRANSFERASE 24 U/L (12-78); ALBUMIN 1.6 g/dL (3.4-5.0); ANION GAP 6 mmol/L (5-15); CALCIUM 6.9 mg/dL (8.5-10.1); CHLORIDE 112 mmol/L (98-107); CREATININE 1.46 mg/dL (0.7-1.3)
[2019-08-10 02:10] LABS: ALKALINE PHOSPHATASE 115 U/L (45-117); BILIRUBIN,TOTAL 0.4 mg/dL (0.2-1.0); TOTAL PROTEIN 4.7 g/dL (6.4-8.2)
[2019-08-10] MEDS: HEPARIN 5,000 UNITS/ML, 1ML SQ SCH (02:28)
[2019-08-10 02:44] LABS: MD YES
[2019-08-10 02:51] LABS: <PLATELET ESTIMATE> DECREASED; <PLT MORPHOLOGY> NORMAL PLT MORPH; ANISOCYTOSIS 1+; BASOS#(MANUAL) 0.02 x10^3/uL (0-0.1); BASOS% (MANUAL) 1 % (0-1); EOS#(MANUAL) 0.25 x10^3/uL (0.0-0.4); EOS% (MANUAL) 11 % (1-7); LYMPH#(MANUAL) 0.76 x10^3/uL (1-3.4); LYMPHS% (MANUAL) 33 % (22-44); MONOS#(MANUAL) 0.37 x10^3/uL (0.3-2.7); MONOS% (MANUAL) 16 % (2-9); SEGS% (MANUAL) 39 % (42-75)
[2019-08-10] MEDS: PIPERACILLIN/TAZO/PMX 4.5GM 100 ML IV SCH ×2 (03:25→09:58)
[2019-08-10] MEDS ORDERED: ALBUMIN HUMAN 25% 100 ML IV ONE (06:30)
[2019-08-10] MEDS ORDERED: VANCOMYCIN 1,700 MG in SODIUM CHLORIDE 0.9% 250 ML IV SCH (08:00)
[2019-08-10] MEDS: PANTOPROZOLE 40MG TABLET PO SCH ×2 (08:12→16:51)
[2019-08-10] MEDS: THIAMINE 100MG TABLET PO SCH ×2 (08:13→09:00)
[2019-08-10] MEDS: AZITHROMYCIN 500 MG TABLET PO SCH (08:13)
[2019-08-10 09:29] VITALS: BP 116/72
[2019-08-10] MEDS ORDERED: PHARMACY MAY ADJ FOR RENAL FX MC PRN (11:00)
[2019-08-10] MEDS ORDERED: SODIUM CHLORIDE 0.9% 1,000 ML IV SCH (12:00)
[2019-08-10] MEDS: CEFTRIAXONE PMX 2GM/50ML 50 ML IV SCH (12:13)
[2019-08-10 12:53] LABS: MEAN CORPUSCULAR HEMOGLOBIN 28.8 pg (27.5-34.5); MEAN CORPUSCULAR HGB CONC 33.1 g/dL (33.2-36.2); MEAN CORPUSCULAR VOLUME 87.2 fL (81-97); MEAN PLATELET VOLUME 10.2 fL (7.4-10.4); PLATELET COUNT 51 x10^3/uL (130-400); RED BLOOD COUNT 3.25 x10^6/uL (4.38-5.82); RED CELL DISTRIBUTION WIDTH 16.6 % (9.4-14.8)
[2019-08-10 13:09] LABS: BASOPHILS # (AUTO) 0.01 x10^3/uL (0-0.1); BASOPHILS % (AUTO) 0 % (0-1); EOSINOPHILS % (AUTO) 13 % (1-7); LYMPHOCYTES # (AUTO) 0.88 x10^3/uL (1-3.4); LYMPHOCYTES % (AUTO) 38 % (22-44); MD SCAN; MONOCYTES % (AUTO) 9 % (2-9); NEUTROPHILS # (AUTO) 0.92 x10^3/uL (1.8-6.8); NEUTROPHILS % (AUTO) 40 % (42-75)
[2019-08-10 14:00] VITALS: BP 124/75
[2019-08-10] MEDS ORDERED: LIDOCAINE 1%, 20ML ONE (15:22)
[2019-08-10 19:15] VITALS: BP 100/60
[2019-08-11 01:32] VITALS: BP 96/61
[2019-08-11] MEDS: PANTOPROZOLE 40MG TABLET PO SCH ×2 (06:27→16:00)
[2019-08-11 06:42] VITALS: BP 107/70
[2019-08-11] MEDS: THIAMINE 100MG TABLET PO SCH (08:41)
[2019-08-11] MEDS: AZITHROMYCIN 500 MG TABLET PO SCH (08:42)
[2019-08-11 09:17] LABS: MEAN CORPUSCULAR HEMOGLOBIN 28.1 pg (27.5-34.5); MEAN CORPUSCULAR HGB CONC 32.5 g/dL (33.2-36.2); MEAN CORPUSCULAR VOLUME 86.4 fL (81-97); MEAN PLATELET VOLUME 10.2 fL (7.4-10.4); PLATELET COUNT 54 x10^3/uL (130-400); RED BLOOD COUNT 3.35 x10^6/uL (4.38-5.82); RED CELL DISTRIBUTION WIDTH 16.8 % (9.4-14.8)
[2019-08-11 09:24] LABS: ALANINE AMINOTRANSFERASE 25 U/L (12-78); ALBUMIN 1.8 g/dL (3.4-5.0); ANION GAP 4 mmol/L (5-15); CALCIUM 6.8 mg/dL (8.5-10.1); CHLORIDE 116 mmol/L (98-107)
[2019-08-11 09:26] LABS: ALKALINE PHOSPHATASE 101 U/L (45-117); BILIRUBIN,TOTAL 0.4 mg/dL (0.2-1.0); TOTAL PROTEIN 4.5 g/dL (6.4-8.2)
[2019-08-11 09:29] LABS: BASOPHILS # (AUTO) 0.02 x10^3/uL (0-0.1); BASOPHILS % (AUTO) 1 % (0-1); EOSINOPHILS # (AUTO) 0.33 x10^3/uL (0-0.4); EOSINOPHILS % (AUTO) 12 % (1-7); LYMPHOCYTES % (AUTO) 41 % (22-44); MD SCAN; MONOCYTES # (AUTO) 0.14 x10^3/uL (0.2-0.8); MONOCYTES % (AUTO) 5 % (2-9); NEUTROPHILS # (AUTO) 1.08 x10^3/uL (1.8-6.8); NEUTROPHILS % (AUTO) 40 % (42-75)
[2019-08-11 10:23] LABS: BAND#(MANUAL) 0.27 x10^3/uL; BANDS%(MANUAL) 10 % (0-7); EOS#(MANUAL) 0.16 x10^3/uL (0.0-0.4); EOS% (MANUAL) 6 % (1-7); LYMPH#(MANUAL) 0.92 x10^3/uL (1-3.4); LYMPHS% (MANUAL) 34 % (22-44); MONOS#(MANUAL) 0.05 x10^3/uL (0.3-2.7); MONOS% (MANUAL) 2 % (2-9); SEGS% (MANUAL) 48 % (42-75)
[2019-08-11 10:24] LABS: <PLATELET ESTIMATE> DECREASED; <PLT MORPHOLOGY> NORMAL PLT MORPH; ANISOCYTOSIS 1+
[2019-08-11] MEDS: CEFTRIAXONE PMX 2GM/50ML 50 ML IV SCH (11:32)
[2019-08-11 12:45] VITALS: BP 111/71
[2019-08-11] MEDS: FLUTICASONE NASAL SPRAY 16GM NAS SCH (16:00)
[2019-08-11 19:17] VITALS: BP 112/72
[2019-08-12 01:50] VITALS: BP 95/60
[2019-08-12 04:52] LABS: BASOPHILS # (AUTO) 0.02 x10^3/uL (0-0.1); BASOPHILS % (AUTO) 1 % (0-1); EOSINOPHILS # (AUTO) 0.49 x10^3/uL (0-0.4); EOSINOPHILS % (AUTO) 16 % (1-7); LYMPHOCYTES # (AUTO) 1.28 x10^3/uL (1-3.4); LYMPHOCYTES % (AUTO) 40 % (22-44); MD NO; MEAN CORPUSCULAR HEMOGLOBIN 28.4 pg (27.5-34.5); MEAN CORPUSCULAR HGB CONC 33.1 g/dL (33.2-36.2); MEAN CORPUSCULAR VOLUME 85.9 fL (81-97); MEAN PLATELET VOLUME 10.1 fL (7.4-10.4); MONOCYTES # (AUTO) 0.23 x10^3/uL (0.2-0.8); MONOCYTES % (AUTO) 7 % (2-9); NEUTROPHILS # (AUTO) 1.16 x10^3/uL (1.8-6.8); NEUTROPHILS % (AUTO) 37 % (42-75); PLATELET COUNT 50 x10^3/uL (130-400); RED BLOOD COUNT 3.38 x10^6/uL (4.38-5.82); RED CELL DISTRIBUTION WIDTH 16.8 % (9.4-14.8)
[2019-08-12 05:08] LABS: CHLORIDE 114 mmol/L (98-107)
[2019-08-12 05:17] LABS: ALANINE AMINOTRANSFERASE 20 U/L (12-78); ALBUMIN 1.6 g/dL (3.4-5.0); ALKALINE PHOSPHATASE 101 U/L (45-117); ANION GAP 4 mmol/L (5-15); BILIRUBIN,TOTAL 0.4 mg/dL (0.2-1.0); C-REACTIVE PROTEIN, QUANT 0.43 mg/dL (0.02-0.49); CALCIUM 7.2 mg/dL (8.5-10.1); CREATININE 0.83 mg/dL (0.7-1.3); TOTAL PROTEIN 4.5 g/dL (6.4-8.2)
[2019-08-12] MEDS: PANTOPROZOLE 40MG TABLET PO SCH (06:05)
[2019-08-12 07:58] VITALS: BP 120/76
[2019-08-12] MEDS: THIAMINE 100MG TABLET PO SCH (07:59)
[2019-08-12] MEDS: FLUTICASONE NASAL SPRAY 16GM NAS SCH (07:59)
[2019-08-12] MEDS ORDERED: FURO80TA77 PO (12:04)
[2019-08-12] MEDS ORDERED: THIA100T67 PO (12:04)
[2019-08-12] MEDS: CEFTRIAXONE PMX 2GM/50ML 50 ML IV SCH (12:12)
[2019-08-12 13:02] VITALS: BP 119/75
== END 2019-08-12 14:30 | disposition home or self-care (01) | DRG 720 ==
LOC: ED 14:18 → EDIP 14:44 → 3N 15:10 → DCLOUNGE 08-12 14:25
PROVIDERS: ADMIT Family Medicine; ATTEND Hospitalist
DX: A41.9 Sepsis, unspecified organism (principal); E43 Unspecified severe protein-calorie malnutrition; D61.818 Other pancytopenia; J90 Pleural effusion, not elsewhere classified; N17.9 Acute kidney failure, unspecified; J18.9 Pneumonia, unspecified organism; D69.59 Other secondary thrombocytopenia; K76.6 Portal hypertension; D63.8 Anemia in other chronic diseases classified elsewhere; E11.9 Type 2 diabetes mellitus without complications; I10 Essential (primary) hypertension; J04.0 Acute laryngitis; J39.2 Other diseases of pharynx; K70.31 Alcoholic cirrhosis of liver with ascites; Z87.440 Personal history of urinary (tract) infections; Z68.30 Body mass index [BMI] 30.0-30.9, adult
CPT/HCPCS: 36415; 49083; 70491; 71045; 71260; 80053; 80202; 81001; 82570; 83605; 83735; 83880; 84100; 84145; 84300; 84484; 85025; 85610; 85651; 85730; 86140; 87040; 87081; 87086; 87400; 87880; 93005; 96374; 99285; G0378; J0696; J1644; J2543; J3370; J7060; P9047; Q9967; J7030; J7050

== ENCOUNTER 2020-05-10 21:03 | Inpatient (IN) | payer MEDICAID ==
[~2020-05-10] VITALS: Ht 170.2 cm; Wt 95.6 kg
[~2020-05-10 21:03] MED LIST changes: +ACID1TAB7 PO; +FURO20TA3 PO; +SPIR25TA PO
--- NOTE | 2020-05-10 21:15 | NUR ---
Patient presents to ER c/o abd swelling x1 week and fevers since . Patient has a hx of peritonitis and states this feels the same. Patient is in NAD. REspirations even and unlabored.
[2020-05-10] MEDS ORDERED: ACETAMINOPHEN 500 MG TABLET PO ONE (21:30)
[2020-05-10] MEDS ORDERED: CEFTRIAXONE PMX 1GM/50ML 50 ML IV ONE (21:30)
[2020-05-10] MEDS ORDERED: ACETAMINOPHEN 500 MG TABLET ONE (21:32)
[2020-05-10] MEDS ORDERED: CEFTRIAXONE PMX 1GM/50ML 50 ML ONE (21:32)
[2020-05-10] MEDS ORDERED: LIDOCAINE-MPF 1%, 5ML ONE (21:48)
[2020-05-10 21:49] LABS: BASOPHILS # (AUTO) 0.01 x10^3/uL (0-0.1); BASOPHILS % (AUTO) 0 % (0-1); EOSINOPHILS % (AUTO) 0 % (1-7); LYMPHOCYTES # (AUTO) 0.36 x10^3/uL (1-3.4); LYMPHOCYTES % (AUTO) 7 % (22-44); MD NO; MEAN CORPUSCULAR HGB CONC 32.9 g/dL (33.2-36.2); MEAN CORPUSCULAR VOLUME 78.8 fL (81-97); MEAN PLATELET VOLUME 10.3 fL (7.4-10.4); MONOCYTES # (AUTO) 0.14 x10^3/uL (0.2-0.8); MONOCYTES % (AUTO) 3 % (2-9); NEUTROPHILS # (AUTO) 4.69 x10^3/uL (1.8-6.8); NEUTROPHILS % (AUTO) 90 % (42-75); PLATELET COUNT 112 x10^3/uL (130-400); RED BLOOD COUNT 3.63 x10^6/uL (4.38-5.82); RED CELL DISTRIBUTION WIDTH 19.2 % (9.4-14.8)
[2020-05-10 21:57] LABS: ALANINE AMINOTRANSFERASE 17 U/L (12-78); ALBUMIN 1.5 g/dL (3.4-5.0); ANION GAP 11 mmol/L (5-15); CHLORIDE 109 mmol/L (98-107)
[2020-05-10 22:00] LABS: ALKALINE PHOSPHATASE 176 U/L (45-117); BILIRUBIN,TOTAL 0.7 mg/dL (0.2-1.0); CREATININE 1.77 mg/dL (0.7-1.3); TOTAL PROTEIN 5.6 g/dL (6.4-8.2)
[2020-05-10] MEDS ORDERED: SODIUM CHLORIDE 0.9% 1,000ML IVBOLUS ONE (22:00)
[2020-05-10] MEDS ORDERED: SODIUM CHLORIDE FLUSH 10ML SYR IVF ONE (22:00)
[2020-05-10] MEDS ORDERED: LIDOCAINE-MPF 1%, 5ML INFIL ONE (22:00)
[2020-05-11 00:10] LABS: CELLS COUNTED 39
[2020-05-11 00:13] LABS: MICROSCOPIC INDICATED
[2020-05-11] MEDS ORDERED: ALBUMIN HUMAN 25% 100 ML IV ONE (00:30)
[2020-05-11] MEDS ORDERED: IBUPROFEN 800 MG TABLET ONE (01:44)
[2020-05-11] MEDS ORDERED: FOLIC ACID 1 MG TABLET PO ONE (02:00)
[2020-05-11] MEDS ORDERED: THIAMINE 100MG TABLET PO ONE (02:00)
[2020-05-11] MEDS ORDERED: ACETAMINOPHEN 325 MG TABLET PO PRN (02:00)
[2020-05-11] MEDS ORDERED: ONDANSETRON 2MG/ML, 2ML IVPush PRN (02:00)
[2020-05-11] MEDS ORDERED: IBUPROFEN 800 MG TABLET PO ONE (02:00)
[2020-05-11] MEDS ORDERED: hydrALAzine 20 MG/ML, 1ML IVPush PRN (02:00)
[2020-05-11 02:16] VITALS: BP 101/64
[2020-05-11] MEDS: HEPARIN 5,000 UNITS/ML, 1ML SQ SCH ×3 (02:25→17:22)
[2020-05-11 07:29] VITALS: BP 108/72
[2020-05-11] MEDS: PANTOPRAZOLE 40 MG IV IVPush SCH (08:07)
[2020-05-11] MEDS: LACTOBACILLUS CHEW TABLET PO SCH (08:39)
[2020-05-11] MEDS: SPIRONOLACTONE 50 MG TABLET PO SCH (08:39)
[2020-05-11] MEDS: LACTULOSE 10 GM/15 ML UDC PO SCH ×2 (08:39→20:53)
[2020-05-11] MEDS: FUROSEMIDE 40 MG/4 ML IV SCH (08:39)
[2020-05-11] MEDS: CEFTRIAXONE PMX 2GM/50ML 50 ML IV SCH ×2 (08:39→09:46)
[2020-05-11] MEDS ORDERED: LIDOCAINE 1%, 10ML ONE (08:41)
[2020-05-11 11:34] LABS: CELLS COUNTED 27
[2020-05-11 12:25] VITALS: BP 112/68
[2020-05-11 19:08] VITALS: BP 121/74
[2020-05-11] MEDS ORDERED: CEFTRIAXONE PMX 1GM/50ML 50 ML IV SCH (21:00)
[2020-05-12 01:23] VITALS: BP 108/67
[2020-05-12] MEDS: HEPARIN 5,000 UNITS/ML, 1ML SQ SCH ×3 (01:29→17:45)
[2020-05-12 06:00] LABS: CALCIUM 7.2 mg/dL (8.5-10.1); CHLORIDE 113 mmol/L (98-107)
[2020-05-12 06:14] LABS: ALANINE AMINOTRANSFERASE 15 U/L (12-78); ALBUMIN 1.5 g/dL (3.4-5.0); ALKALINE PHOSPHATASE 119 U/L (45-117); ANION GAP 9 mmol/L (5-15); BILIRUBIN,TOTAL 0.4 mg/dL (0.2-1.0); CREATININE 1.34 mg/dL (0.7-1.3); TOTAL PROTEIN 4.4 g/dL (6.4-8.2)
[2020-05-12 07:23] VITALS: BP 118/73
[2020-05-12] MEDS: PANTOPRAZOLE 40 MG IV IVPush SCH (07:40)
[2020-05-12] MEDS: CEFTRIAXONE PMX 2GM/50ML 50 ML IV SCH (07:42)
[2020-05-12 08:07] LABS: MEAN CORPUSCULAR HEMOGLOBIN 25.4 pg (27.5-34.5); MEAN CORPUSCULAR VOLUME 79.4 fL (81-97); MEAN PLATELET VOLUME 10.4 fL (7.4-10.4); PLATELET COUNT 76 x10^3/uL (130-400); RED BLOOD COUNT 2.99 x10^6/uL (4.38-5.82); RED CELL DISTRIBUTION WIDTH 19.2 % (9.4-14.8)
[2020-05-12 08:25] LABS: BASOPHILS # (AUTO) 0.02 x10^3/uL (0-0.1); BASOPHILS % (AUTO) 1 % (0-1); EOSINOPHILS # (AUTO) 0.01 x10^3/uL (0-0.4); EOSINOPHILS % (AUTO) 1 % (1-7); LYMPHOCYTES # (AUTO) 0.43 x10^3/uL (1-3.4); LYMPHOCYTES % (AUTO) 27 % (22-44); MONOCYTES # (AUTO) 0.17 x10^3/uL (0.2-0.8); MONOCYTES % (AUTO) 11 % (2-9); NEUTROPHILS # (AUTO) 0.95 x10^3/uL (1.8-6.8); NEUTROPHILS % (AUTO) 60 % (42-75)
[2020-05-12 08:27] LABS: ANISOCYTOSIS 1+; HYPOCHROMIA 1+; MD MORPH REVIEW ONLY; MICROCYTOSIS 1+; OVALOCYTES 1+
[2020-05-12 08:28] LABS: <PLATELET ESTIMATE> DECREASED; LARGE PLATELETS 1+
[2020-05-12] MEDS: FUROSEMIDE 40 MG/4 ML IV SCH (08:45)
[2020-05-12] MEDS: LACTOBACILLUS CHEW TABLET PO SCH (08:46)
[2020-05-12] MEDS: SPIRONOLACTONE 50 MG TABLET PO SCH (08:46)
[2020-05-12] MEDS: LACTULOSE 10 GM/15 ML UDC PO SCH ×2 (08:46→20:07)
[2020-05-12 12:44] VITALS: BP 112/77
[2020-05-12] MEDS: FERROUS SULFATE 325 MG TABLET PO SCH (17:43)
[2020-05-12] MEDS ORDERED: POTASSIUM CHLORIDE 20 MEQ TAB.ER.PRT PO ONE (18:30)
[2020-05-12 20:11] VITALS: BP 117/78
[2020-05-12 20:49] LABS: OCCULT BLOOD POSITIVE (NEGATIVE)
[2020-05-13 01:58] VITALS: BP 99/59
[2020-05-13] MEDS: HEPARIN 5,000 UNITS/ML, 1ML SQ SCH (01:59)
[2020-05-13] MEDS ORDERED: PANTOPRAZOLE 40MG TABLET PO SCH (06:00)
[2020-05-13 06:01] LABS: CHLORIDE 115 mmol/L (98-107)
[2020-05-13 06:05] LABS: MEAN CORPUSCULAR HEMOGLOBIN 25.6 pg (27.5-34.5); MEAN CORPUSCULAR HGB CONC 32.7 g/dL (33.2-36.2); MEAN CORPUSCULAR VOLUME 78.4 fL (81-97); RED BLOOD COUNT 2.85 x10^6/uL (4.38-5.82)
[2020-05-13 06:12] LABS: ALANINE AMINOTRANSFERASE 19 U/L (12-78); ALBUMIN 1.4 g/dL (3.4-5.0); ALKALINE PHOSPHATASE 107 U/L (45-117); ANION GAP 8 mmol/L (5-15); BILIRUBIN,TOTAL 0.3 mg/dL (0.2-1.0); CALCIUM 7.4 mg/dL (8.5-10.1); CREATININE 1.21 mg/dL (0.7-1.3); TOTAL PROTEIN 4.1 g/dL (6.4-8.2)
[2020-05-13 07:04] LABS: MD YES; MEAN PLATELET VOLUME 10.3 fL (7.4-10.4); PLATELET COUNT 88 x10^3/uL (130-400)
[2020-05-13 07:10] LABS: ANISOCYTOSIS 1+; BASOS#(MANUAL) 0.02 x10^3/uL (0-0.1); BASOS% (MANUAL) 1 % (0-1); EOS% (MANUAL) 5 % (1-7); HYPOCHROMIA 1+; LYMPH#(MANUAL) 0.74 x10^3/uL (1-3.4); LYMPHS% (MANUAL) 37 % (22-44); MICROCYTOSIS 1+; MONOS#(MANUAL) 0.04 x10^3/uL (0.3-2.7); MONOS% (MANUAL) 2 % (2-9); OVALOCYTES 1+; SEGS% (MANUAL) 55 % (42-75)
[2020-05-13 07:11] LABS: <PLATELET ESTIMATE> DECREASED; <PLT MORPHOLOGY> NORMAL PLT MORPH
[2020-05-13] MEDS: FUROSEMIDE 40 MG/4 ML IV SCH (08:27)
[2020-05-13] MEDS: LACTOBACILLUS CHEW TABLET PO SCH (08:27)
[2020-05-13] MEDS: SPIRONOLACTONE 50 MG TABLET PO SCH (08:27)
[2020-05-13] MEDS: CEFTRIAXONE PMX 2GM/50ML 50 ML IV SCH (08:27)
[2020-05-13] MEDS: LACTULOSE 10 GM/15 ML UDC PO SCH ×2 (08:27→20:17)
[2020-05-13] MEDS: FERROUS SULFATE 325 MG TABLET PO SCH ×2 (08:27→17:27)
[2020-05-13] MEDS ORDERED: POTASSIUM CHLORIDE 20 MEQ TAB.ER.PRT PO ONE (08:30)
[2020-05-13 09:19] VITALS: BP 113/73
[2020-05-13] MEDS ORDERED: SPIRONOLACTONE 50 MG TABLET PO SCH (11:30)
[2020-05-13] MEDS: PANTOPRAZOLE 80 MG in SODIUM CHLORIDE 0.9% 100 ML IV SCH ×2 (12:16→20:17)
[2020-05-13] MEDS: OCTREOTIDE 500 MCG in SODIUM CHLORIDE 0.9% 99 ML IV PRN ×2 (12:17→20:17)
[2020-05-13] MEDS ORDERED: SPIRONOLACTONE 50 MG TABLET PO ONE (13:00)
[2020-05-13 13:35] VITALS: BP 114/75
[2020-05-13 13:49] VITALS: BP 114/74
[2020-05-13 18:56] VITALS: BP 116/77
[2020-05-14 00:48] VITALS: BP 117/77
[2020-05-14 06:26] LABS: MEAN CORPUSCULAR HEMOGLOBIN 25.9 pg (27.5-34.5); MEAN CORPUSCULAR HGB CONC 32.8 g/dL (33.2-36.2); MEAN CORPUSCULAR VOLUME 79.2 fL (81-97); MEAN PLATELET VOLUME 10.1 fL (7.4-10.4); PLATELET COUNT 117 x10^3/uL (130-400); RED BLOOD COUNT 3.07 x10^6/uL (4.38-5.82); RED CELL DISTRIBUTION WIDTH 18.9 % (9.4-14.8)
[2020-05-14 06:29] LABS: CALCIUM 7.9 mg/dL (8.5-10.1); CHLORIDE 115 mmol/L (98-107)
[2020-05-14 06:32] LABS: ANION GAP 8 mmol/L (5-15); CREATININE 1.21 mg/dL (0.7-1.3)
[2020-05-14 06:44] LABS: MD YES
[2020-05-14 06:48] LABS: BAND#(MANUAL) 0.08 x10^3/uL; BANDS%(MANUAL) 3 % (0-7); EOS#(MANUAL) 0.08 x10^3/uL (0.0-0.4); EOS% (MANUAL) 3 % (1-7); LYMPH#(MANUAL) 0.75 x10^3/uL (1-3.4); LYMPHS% (MANUAL) 30 % (22-44); MONOS% (MANUAL) 4 % (2-9); MYELOCYTES# (MANUAL) 0.03 x10^3/uL (0-0); MYELOCYTES% (MANUAL) 1 % (0-0); SEG#(MANUAL) 1.48 x10^3/uL (1.8-6.8); SEGS% (MANUAL) 59 % (42-75)
[2020-05-14 06:49] LABS: <PLATELET ESTIMATE> DECREASED; <PLT MORPHOLOGY> NORMAL PLT MORPH; ANISOCYTOSIS 1+; HYPOCHROMIA 1+; MICROCYTOSIS 1+; OVALOCYTES 1+; TEAR DROPS 1+
[2020-05-14 07:15] VITALS: BP 109/67
[2020-05-14] MEDS: PANTOPRAZOLE 80 MG in SODIUM CHLORIDE 0.9% 100 ML IV SCH (07:59)
[2020-05-14] MEDS: FERROUS SULFATE 325 MG TABLET PO SCH ×2 (08:00→17:02)
[2020-05-14] MEDS: OCTREOTIDE 500 MCG in SODIUM CHLORIDE 0.9% 99 ML IV PRN (08:00)
[2020-05-14] MEDS: SPIRONOLACTONE 100 MG TABLET PO SCH (08:00)
[2020-05-14] MEDS: FUROSEMIDE 40 MG/4 ML IV SCH (08:00)
[2020-05-14] MEDS: LACTOBACILLUS CHEW TABLET PO SCH (08:00)
[2020-05-14] MEDS: CEFTRIAXONE PMX 2GM/50ML 50 ML IV SCH (08:00)
[2020-05-14] MEDS: LACTULOSE 10 GM/15 ML UDC PO SCH ×2 (08:01→20:18)
[2020-05-14] MEDS ORDERED: CHLORHEXIDINE 15 ML UDC ONE (09:34)
[2020-05-14] MEDS ORDERED: PROPOFOL 10 MG/ML, 20ML ONE (10:12)
[2020-05-14] MEDS ORDERED: LIDOCAINE-MPF 1%, 5ML ONE (10:12)
[2020-05-14] MEDS ORDERED: FENTANYL PF 100 MCG/2ML IV PRN (10:30)
[2020-05-14] MEDS ORDERED: LABETALOL 5MG/ML, 20ML IV PRN (10:30)
[2020-05-14] MEDS ORDERED: ONDANSETRON 2MG/ML, 2ML IVPush PRN (10:30)
[2020-05-14 10:50] VITALS: BP 120/77
[2020-05-14 12:35] VITALS: BP 120/82
[2020-05-14 19:26] VITALS: BP 125/82
[2020-05-15 02:13] VITALS: BP 106/64
[2020-05-15 05:17] LABS: ALBUMIN 1.6 g/dL (3.4-5.0); ANION GAP 8 mmol/L (5-15); CALCIUM 7.4 mg/dL (8.5-10.1); CHLORIDE 116 mmol/L (98-107)
[2020-05-15 05:19] LABS: BASOPHILS # (AUTO) 0.02 x10^3/uL (0-0.1); BASOPHILS % (AUTO) 1 % (0-1); CREATININE 1.03 mg/dL (0.7-1.3); EOSINOPHILS # (AUTO) 0.19 x10^3/uL (0-0.4); EOSINOPHILS % (AUTO) 6 % (1-7); LYMPHOCYTES # (AUTO) 0.77 x10^3/uL (1-3.4); LYMPHOCYTES % (AUTO) 23 % (22-44); MD NO; MEAN CORPUSCULAR HEMOGLOBIN 25.9 pg (27.5-34.5); MEAN CORPUSCULAR HGB CONC 32.9 g/dL (33.2-36.2); MEAN CORPUSCULAR VOLUME 78.8 fL (81-97); MEAN PLATELET VOLUME 9.4 fL (7.4-10.4); MONOCYTES # (AUTO) 0.21 x10^3/uL (0.2-0.8); MONOCYTES % (AUTO) 6 % (2-9); NEUTROPHILS # (AUTO) 2.24 x10^3/uL (1.8-6.8); NEUTROPHILS % (AUTO) 65 % (42-75); PLATELET COUNT 147 x10^3/uL (130-400)
[2020-05-15] MEDS ORDERED: OMEPRAZOLE 20 MG CAPSULE.DR PO SCH (06:00)
[2020-05-15 07:34] VITALS: BP 111/69
[2020-05-15] MEDS: LACTOBACILLUS CHEW TABLET PO SCH (08:21)
[2020-05-15] MEDS: SPIRONOLACTONE 100 MG TABLET PO SCH (08:21)
[2020-05-15] MEDS: CEFTRIAXONE PMX 2GM/50ML 50 ML IV SCH (08:21)
[2020-05-15] MEDS: FERROUS SULFATE 325 MG TABLET PO SCH ×2 (08:21→16:56)
[2020-05-15] MEDS: LACTULOSE 10 GM/15 ML UDC PO SCH (08:21)
[2020-05-15] MEDS: FUROSEMIDE 40 MG/4 ML IV SCH (08:27)
[2020-05-15 12:25] VITALS: BP 119/81
[2020-05-15] MEDS ORDERED: OMEP-110 PO (16:08)
[2020-05-15] MEDS ORDERED: CEFD300C37 PO (16:08)
[2020-05-15] MEDS ORDERED: SPIR100T PO (16:08)
[2020-05-15] MEDS ORDERED: LACT10SO24 PO (16:08)
[2020-05-15] MEDS ORDERED: FERR-51 PO (16:08)
== END 2020-05-15 18:02 | disposition home or self-care (01) | DRG 720 ==
LOC: ED 21:33 → EDIP 05-11 01:25 → 4WST 05-11 02:13
PROVIDERS: ADMIT Hospitalist; ATTEND Family Medicine
PROC: 0W9B3ZZ Drainage of Left Pleural Cavity, Percutaneous Approach (ICD-10-PCS; principal; 2020-05-11)
PROC: 0W9G3ZZ Drainage of Peritoneal Cavity, Percutaneous Approach (ICD-10-PCS; 2020-05-15)
DX: A41.9 Sepsis, unspecified organism (principal); D50.9 Iron deficiency anemia, unspecified; D61.818 Other pancytopenia; D62 Acute posthemorrhagic anemia; D63.8 Anemia in other chronic diseases classified elsewhere; E11.22 Type 2 diabetes mellitus with diabetic chronic kidney disease; E87.6 Hypokalemia; F10.21 Alcohol dependence, in remission; I12.9 Hypertensive chronic kidney disease with stage 1 through stage 4 chronic kidney disease, or unspecified chronic kidney disease; J90 Pleural effusion, not elsewhere classified; J96.00 Acute respiratory failure, unspecified whether with hypoxia or hypercapnia; J98.11 Atelectasis; K29.20 Alcoholic gastritis without bleeding; K70.31 Alcoholic cirrhosis of liver with ascites; K76.6 Portal hypertension; N17.9 Acute kidney failure, unspecified; N18.3 Chronic kidney disease, stage 3 (moderate); N39.0 Urinary tract infection, site not specified; Z91.19 Patient's noncompliance with other medical treatment and regimen; Z20.828 Contact with and (suspected) exposure to other viral communicable diseases
CPT/HCPCS: 32555; 36415; 49083; 71045; 80048; 80053; 80069; 81001; 82042; 82140; 82272; 82728; 83540; 83550; 83605; 83615; 83690; 83735; 84100; 84145; 84443; 85014; 85018; 85025; 87040; 87070; 87086; 87205; 87635; 88305; 89051; 93005; G0378; J0696; J1644; J1940; J2354; J2704; P9047; C9113; J7030

== ENCOUNTER 2020-07-25 15:49 | Inpatient (IN) | payer MEDICAID ==
[~2020-07-25] VITALS: Ht 170.2 cm; Wt 97.8 kg
[~2020-07-25 15:49] MED LIST changes: +CEFD300C37 PO; +FERR-51 PO; +LACT10SO24 PO; +OMEP-110 PO; -PANT40TA5 PO; +PANT40TA6 PO
--- NOTE | 2020-07-25 16:27 | NUR ---
PIPE SMOKER MACHINE OPERATOR: PT TO ROOM FROM [facility]
[2020-07-25] MEDS ORDERED: SODIUM CHLORIDE FLUSH 10ML SYR IVF ONE (16:30)
--- NOTE | 2020-07-25 16:32 | NUR ---
PATIENT WALKED BACK FROM TRIAGE WITH CHIEF C/O LEFT RIB PAIN X1 DAY. PATIENT ALSO STATES HE HAS HAD SOB, BUT STATES "IT'S THE FLUID BUILD UP THAT GOES TO MY LUNGS." PATIENT RATES PAIN LEVEL A 4/10 RIGHT NOW, DENIES FEVER, DENIES N/V/D. NO SIGNS OF ACUTE DISTRESS, CONNECTED TO VITALS MACHINE, CALL LIGHT WITHIN REACH, METER REPAIRER AT BEDSIDE.
[2020-07-25 16:45] LABS: BASOPHILS % (AUTO) 0 % (0-1); EOSINOPHILS % (AUTO) 0 % (1-7); LYMPHOCYTES % (AUTO) 6 % (22-44); MEAN CORPUSCULAR HEMOGLOBIN 26.7 pg (27.5-34.5); MEAN CORPUSCULAR HGB CONC 32.2 g/dL (33.2-36.2); MEAN PLATELET VOLUME 8.8 fL (7.4-10.4); MONOCYTES % (AUTO) 9 % (2-9); NEUTROPHILS % (AUTO) 84 % (42-75); PLATELET COUNT 101 x10^3/uL (130-400); RED BLOOD COUNT 3.85 x10^6/uL (4.38-5.82); RED CELL DISTRIBUTION WIDTH 17.6 % (9.4-14.8)
[2020-07-25 16:56] LABS: CALCIUM 7.2 mg/dL (8.5-10.1); CHLORIDE 109 mmol/L (98-107)
[2020-07-25 17:02] LABS: MD SCAN
[2020-07-25 17:09] LABS: ALANINE AMINOTRANSFERASE 17 U/L (12-78); ALBUMIN 1.2 g/dL (3.4-5.0); ALKALINE PHOSPHATASE 185 U/L (45-117); ANION GAP 7 mmol/L (5-15); BILIRUBIN,TOTAL 0.8 mg/dL (0.2-1.0); CREATININE 1.48 mg/dL (0.7-1.3); TOTAL PROTEIN 5.2 g/dL (6.4-8.2)
--- NOTE | 2020-07-25 17:17 | NUR ---
ERMD AT BEDSIDE TO DISCUSS POC.
--- NOTE | 2020-07-25 17:26 | NUR ---
PATIENT TO IR FOR PARACENTESIS.
[2020-07-25] MEDS ORDERED: ALBUMIN HUMAN 25% 100 ML IV ONE (17:30)
--- NOTE | 2020-07-25 18:23 | NUR ---
REPORT GIVEN TO DAVIDE JOSUE MEDICAL/ONCOLOGY.
[2020-07-25] MEDS ORDERED: BISACODYL 10 MG SUPP PR PRN (19:30)
[2020-07-25] MEDS ORDERED: OXYcodone IR 5MG TABLET PO PRN (19:30)
[2020-07-25] MEDS ORDERED: ONDANSETRON 2MG/ML, 2ML IVPush PRN (19:30)
[2020-07-25] MEDS ORDERED: POLYETHYLENE GLYCOL 17 GM PACKET PO PRN (19:30)
[2020-07-25 20:07] LABS: INTERNATIONAL NORMALIZED RATIO 1.14 (0.93-1.1); PROTHROMBIN TIME 12.1 Seconds (9.6-11.5)
[2020-07-25 20:21] VITALS: BP 132/80
[2020-07-25] MEDS ORDERED: ASPIRIN 300 MG SUPP PR PRN (21:00)
[2020-07-25] MEDS ORDERED: LORazepam 2 MG/ML, 1ML IVPush PRN (21:00)
[2020-07-25] MEDS: SODIUM CHLORIDE 0.9% 1,000 ML IV SCH (21:10)
[2020-07-25] MEDS: CEFTRIAXONE PMX 1GM/50ML 50 ML IV SCH (21:10)
[2020-07-26 01:45] VITALS: BP 121/66
[2020-07-26 04:09] LABS: BASOPHILS % (AUTO) 0 % (0-1); EOSINOPHILS % (AUTO) 0 % (1-7); LYMPHOCYTES % (AUTO) 8 % (22-44); MEAN CORPUSCULAR HGB CONC 32.6 g/dL (33.2-36.2); MEAN PLATELET VOLUME 8.8 fL (7.4-10.4); MONOCYTES % (AUTO) 6 % (2-9); NEUTROPHILS % (AUTO) 85 % (42-75); PLATELET COUNT 72 x10^3/uL (130-400); RED BLOOD COUNT 3.37 x10^6/uL (4.38-5.82); RED CELL DISTRIBUTION WIDTH 17.5 % (9.4-14.8)
[2020-07-26 04:12] LABS: ALBUMIN 1.3 g/dL (3.4-5.0); ANION GAP 7 mmol/L (5-15); CHLORIDE 113 mmol/L (98-107)
[2020-07-26 04:16] LABS: ALANINE AMINOTRANSFERASE 10 U/L (12-78); ALKALINE PHOSPHATASE 138 U/L (45-117); BILIRUBIN,TOTAL 0.9 mg/dL (0.2-1.0); CREATININE 1.16 mg/dL (0.7-1.3); TOTAL PROTEIN 4.7 g/dL (6.4-8.2)
[2020-07-26 05:29] LABS: MD SCAN
[2020-07-26] MEDS: SODIUM CHLORIDE 0.9% 1,000 ML IV SCH ×2 (06:19→15:56)
[2020-07-26 07:21] VITALS: BP 120/73
[2020-07-26] MEDS: SENNA/DOCUSATE TABLET PO SCH (08:30)
[2020-07-26] MEDS ORDERED: LIDOCAINE 1%, 10ML ONE (09:26)
[2020-07-26] MEDS ORDERED: ACETAMINOPHEN 325 MG TABLET PO PRN (10:00)
[2020-07-26] MEDS ORDERED: POTASSIUM CHLORIDE 20 MEQ TAB.ER.PRT PO ONE (10:00)
[2020-07-26] MEDS: HEPARIN 5,000 UNITS/ML, 1ML SQ SCH ×2 (10:11→18:25)
[2020-07-26 13:34] VITALS: BP 132/75
[2020-07-26 19:13] VITALS: BP 121/78
[2020-07-26] MEDS: CEFTRIAXONE PMX 1GM/50ML 50 ML IV SCH (19:49)
[2020-07-27 02:00] VITALS: BP 124/73
[2020-07-27] MEDS: HEPARIN 5,000 UNITS/ML, 1ML SQ SCH ×3 (02:19→18:30)
[2020-07-27 04:37] LABS: BASOPHILS % (AUTO) 1 % (0-1); EOSINOPHILS % (AUTO) 2 % (1-7); LYMPHOCYTES % (AUTO) 16 % (22-44); MEAN CORPUSCULAR HEMOGLOBIN 27.1 pg (27.5-34.5); MEAN CORPUSCULAR HGB CONC 32.5 g/dL (33.2-36.2); MEAN PLATELET VOLUME 8.7 fL (7.4-10.4); MONOCYTES % (AUTO) 9 % (2-9); NEUTROPHILS % (AUTO) 72 % (42-75); PLATELET COUNT 77 x10^3/uL (130-400); RED BLOOD COUNT 3.28 x10^6/uL (4.38-5.82); RED CELL DISTRIBUTION WIDTH 17.1 % (9.4-14.8)
[2020-07-27 04:42] LABS: MD NO
[2020-07-27 04:48] LABS: % IRON SATURATION 6 % (20-55); ANION GAP 6 mmol/L (5-15); CHLORIDE 113 mmol/L (98-107); CREATININE 1.14 mg/dL (0.7-1.3); IRON LEVEL 10 mcg/dL (65-175); TOTAL IRON BINDING CAPACITY 162 mcg/dL (250-450)
[2020-07-27] MEDS: SODIUM CHLORIDE 0.9% 1,000 ML IV SCH (05:02)
[2020-07-27] MEDS ORDERED: VANCOMYCIN PER PHARMACY MC PRN (08:30)
[2020-07-27 08:41] VITALS: BP 115/72
[2020-07-27] MEDS: SENNA/DOCUSATE TABLET PO SCH (08:46)
[2020-07-27] MEDS ORDERED: VANCOMYCIN 2,400 MG in SODIUM CHLORIDE 0.9% 500 ML IV ONE (09:00)
[2020-07-27] MEDS ORDERED: PHARMACOKINETIC CONSULTATION MC ONE (09:00)
[2020-07-27] MEDS ORDERED: PHARMACOKINETIC MONITORING MC PRN (09:00)
[2020-07-27 12:49] VITALS: BP 120/79
[2020-07-27 19:20] VITALS: BP 123/70
[2020-07-27] MEDS ORDERED: SODIUM CHLORIDE 0.9% 1,000 ML IV SCH (19:30)
[2020-07-27] MEDS: CEFTRIAXONE PMX 1GM/50ML 50 ML IV SCH (20:37)
[2020-07-28 02:50] VITALS: BP 121/75
[2020-07-28] MEDS ORDERED: VANCOMYCIN 2,000 MG in SODIUM CHLORIDE 0.9% 500 ML IV SCH ×2 (04:00→10:00)
[2020-07-28] MEDS: HEPARIN 5,000 UNITS/ML, 1ML SQ SCH ×3 (04:10→18:30)
[2020-07-28 07:44] VITALS: BP 110/69
[2020-07-28] MEDS: SENNA/DOCUSATE TABLET PO SCH (07:47)
[2020-07-28] MEDS: FUROSEMIDE 40 MG TABLET PO SCH (09:12)
[2020-07-28 14:05] VITALS: BP 122/82
[2020-07-28 19:40] VITALS: BP 138/85
[2020-07-28] MEDS: CEFTRIAXONE PMX 1GM/50ML 50 ML IV SCH (20:43)
[2020-07-29 01:45] VITALS: BP 122/79
[2020-07-29] MEDS: HEPARIN 5,000 UNITS/ML, 1ML SQ SCH ×3 (02:34→18:00)
[2020-07-29 05:19] LABS: CHLORIDE 113 mmol/L (98-107)
[2020-07-29 05:22] LABS: ANION GAP 8 mmol/L (5-15); CALCIUM 7.3 mg/dL (8.5-10.1); CREATININE 1.23 mg/dL (0.7-1.3)
[2020-07-29 08:06] VITALS: BP 124/72
[2020-07-29] MEDS: SENNA/DOCUSATE TABLET PO SCH (09:00)
[2020-07-29] MEDS: FUROSEMIDE 40 MG TABLET PO SCH (10:19)
[2020-07-29] MEDS: CARVEDILOL 3.125 MG TABLET PO SCH ×2 (10:20→17:56)
[2020-07-29 13:08] VITALS: BP 139/83
[2020-07-29] MEDS ORDERED: LIDOCAINE 1%, 10ML ONE (13:51)
[2020-07-29] MEDS ORDERED: ALBUMIN HUMAN 25% 100 ML IV ONE (16:30)
[2020-07-29] MEDS: CEFTRIAXONE PMX 1GM/50ML 50 ML IV SCH (19:21)
[2020-07-29 19:31] VITALS: BP 118/72
[2020-07-30 01:30] VITALS: BP 137/54
[2020-07-30] MEDS: HEPARIN 5,000 UNITS/ML, 1ML SQ SCH ×2 (02:36→09:31)
[2020-07-30] MEDS: CARVEDILOL 3.125 MG TABLET PO SCH (06:43)
[2020-07-30] MEDS ORDERED: SPIRONOLACTONE 50 MG TABLET PO SCH (09:00)
[2020-07-30] MEDS: SENNA/DOCUSATE TABLET PO SCH (09:00)
[2020-07-30] MEDS: FUROSEMIDE 40 MG TABLET PO SCH (09:31)
[2020-07-30 10:03] VITALS: BP 112/68
[2020-07-30] MEDS ORDERED: CEPH750C9 PO (10:46)
[2020-07-30] MEDS ORDERED: CARV3.1212 PO (10:46)
== END 2020-07-30 12:05 | disposition home or self-care (01) | DRG 432 ==
LOC: ED 16:44 → EDIP 18:22 → 4NW 19:02 → DCLOUNGE 07-30 11:48
PROVIDERS: ADMIT Family Medicine; ATTEND Internal Medicine
PROC: 0W9G3ZZ Drainage of Peritoneal Cavity, Percutaneous Approach (ICD-10-PCS; principal; 2020-07-25)
PROC: 0W9B3ZZ Drainage of Left Pleural Cavity, Percutaneous Approach (ICD-10-PCS; 2020-07-26)
PROC: BB4BZZZ Ultrasonography of Pleura (ICD-10-PCS; 2020-07-26)
PROC: 0W9G3ZZ Drainage of Peritoneal Cavity, Percutaneous Approach (ICD-10-PCS; 2020-07-29)
DX: K70.31 Alcoholic cirrhosis of liver with ascites (principal); E43 Unspecified severe protein-calorie malnutrition; K76.7 Hepatorenal syndrome; J90 Pleural effusion, not elsewhere classified; N17.9 Acute kidney failure, unspecified; R65.10 Systemic inflammatory response syndrome (SIRS) of non-infectious origin without acute organ dysfunction; R78.81 Bacteremia; K70.11 Alcoholic hepatitis with ascites; D50.9 Iron deficiency anemia, unspecified; D69.6 Thrombocytopenia, unspecified; D72.829 Elevated white blood cell count, unspecified; E11.9 Type 2 diabetes mellitus without complications; E66.9 Obesity, unspecified; E83.51 Hypocalcemia; E87.6 Hypokalemia; F10.20 Alcohol dependence, uncomplicated; I10 Essential (primary) hypertension; K80.20 Calculus of gallbladder without cholecystitis without obstruction; R00.0 Tachycardia, unspecified; Z68.33 Body mass index [BMI] 33.0-33.9, adult; Z82.49 Family history of ischemic heart disease and other diseases of the circulatory system
CPT/HCPCS: 36415; 82042; 82945; 89051; J3490; 32555; 49083; 71045; 76700; 80048; 80053; 82330; 83540; 83550; 83690; 83735; 84157; 85025; 85610; 85730; 87040; 87070; 87075; 87205; 88112; 88305; G0378; J0696; J1644; J3370; P9047; J7030; J7040

== ENCOUNTER 2020-10-25 08:14 | Emergency (ER) | payer MEDICAID ==
[~2020-10-25] VITALS: Ht 170.2 cm; Wt 112.0 kg
[~2020-10-25 08:14] MED LIST changes: +CARV3.1212 PO; +CEPH750C9 PO
[2020-10-25] MEDS ORDERED: SODIUM CHLORIDE FLUSH 10ML SYR IVF ONE (08:30)
--- NOTE | 2020-10-25 08:45 | NUR ---
Pt assessment completed. computer support technician just completed lab draw. Pt aware of wait for US guided paracentesis. Denies c/o at this time stating 09/27 discomfort to RUQ abd only when he tries to roll onto that side or with palpation. Call light in reach.
[2020-10-25 08:50] LABS: BASOPHILS % (AUTO) 1 % (0-1); EOSINOPHILS % (AUTO) 2 % (1-7); LYMPHOCYTES % (AUTO) 12 % (22-44); MEAN CORPUSCULAR HEMOGLOBIN 26.3 pg (27.5-34.5); MEAN CORPUSCULAR HGB CONC 32.8 g/dL (33.2-36.2); MEAN PLATELET VOLUME 8.1 fL (7.4-10.4); MONOCYTES % (AUTO) 7 % (2-9); NEUTROPHILS % (AUTO) 78 % (42-75); PLATELET COUNT 145 x10^3/uL (130-400); RED BLOOD COUNT 3.76 x10^6/uL (4.38-5.82); RED CELL DISTRIBUTION WIDTH 17.5 % (9.4-14.8)
[2020-10-25 08:53] LABS: MD NO
[2020-10-25 09:02] LABS: ALANINE AMINOTRANSFERASE 17 U/L (12-78); ALBUMIN 1.3 g/dL (3.4-5.0); ANION GAP 8 mmol/L (5-15); CALCIUM 7.6 mg/dL (8.5-10.1); CHLORIDE 117 mmol/L (98-107); CREATININE 0.98 mg/dL (0.7-1.3)
[2020-10-25 09:04] LABS: ALKALINE PHOSPHATASE 280 U/L (45-117); BILIRUBIN,TOTAL 0.7 mg/dL (0.2-1.0); TOTAL PROTEIN 5.2 g/dL (6.4-8.2)
--- NOTE | 2020-10-25 09:35 | NUR ---
Pt out of room with maintenance mechanic technician at this time.
--- NOTE | 2020-10-25 10:27 | NUR ---
BREAK RN: PT LAYING ON GURANCA, STATES "FEELS BETTER" AFTER PARACENTESIS. NO ACUTE DISTRESS NOTED. PT AWARE OF WAITING FOR TEST RESULTS. PT PROVIDED WITH A BLANKET. NO OTHER NEEDS EXPRESSED AT THIS TIME.
--- NOTE | 2020-10-25 10:38 | NUR ---
REPORT TO LYLA Hyatt RN.
--- NOTE | 2020-10-25 10:50 | NUR ---
distribution field technician on phone requesting orders for ascites fluids. BABAK and both state none needed, and farm laborer notified.
[2020-10-25] MEDS ORDERED: ALBUMIN HUMAN 25% 100 ML IV ONE (11:00)
--- NOTE | 2020-10-25 11:10 | NUR ---
Albumin request sent to pharmacy. Pt aware of need for admin prior to d/c and states he does not require anything at this time.
--- NOTE | 2020-10-25 11:27 | NUR ---
IV site assessed, flushes easily and site remains benign. Albumin gtt started at this time and running with ease. Call light in reach. Pt denies c/o at this time.
[2020-10-25 11:52] VITALS: BP 126/75
--- NOTE | 2020-10-25 11:54 | NUR ---
Albumin infused, site flushed then d/c'd with hemostasis within expected timeframe after 30 seconds manual pressure held. Site covered with gauze dsg. Pt given d/c instructions, stated understanding, changed and was escorted to d/c area with steady gait noted. States his mother is on her way to pick him up now.
== END 2020-10-25 11:55 | disposition home or self-care (01) ==
LOC: ED 09:17
DX: K70.31 Alcoholic cirrhosis of liver with ascites (principal); I10 Essential (primary) hypertension
CPT/HCPCS: 36415; 49083; 80053; 83690; 85025; 96365; 99285; P9047

== ENCOUNTER 2020-11-01 16:42 | Emergency (ER) | payer MEDICAID ==
[~2020-11-01] VITALS: Ht 170.2 cm; Wt 107.1 kg
--- NOTE | 2020-11-01 16:49 | NUR ---
meat inspector: EKG done in triage
--- NOTE | 2020-11-01 17:05 | NUR ---
PT NOTED TO BE TACHIPNIC AND NOTES PRESSURE RIGHT UPPER CHEST. ABDOMINAL DISTENTION NOTED. A&OX4
[2020-11-01 17:49] LABS: BASOPHILS % (AUTO) 1 % (0-1); EOSINOPHILS % (AUTO) 3 % (1-7); LYMPHOCYTES % (AUTO) 12 % (22-44); MEAN CORPUSCULAR HEMOGLOBIN 25.7 pg (27.5-34.5); MEAN CORPUSCULAR HGB CONC 32.4 g/dL (33.2-36.2); MEAN PLATELET VOLUME 8.1 fL (7.4-10.4); MONOCYTES % (AUTO) 9 % (2-9); NEUTROPHILS % (AUTO) 75 % (42-75); PLATELET COUNT 145 x10^3/uL (130-400); RED BLOOD COUNT 4.08 x10^6/uL (4.38-5.82); RED CELL DISTRIBUTION WIDTH 16.7 % (9.4-14.8)
[2020-11-01 17:58] LABS: MD NO
[2020-11-01 18:01] LABS: ALANINE AMINOTRANSFERASE 18 U/L (12-78); ALBUMIN 1.5 g/dL (3.4-5.0); ANION GAP 9 mmol/L (5-15); CALCIUM 7.7 mg/dL (8.5-10.1); CHLORIDE 113 mmol/L (98-107); CREATININE 1.21 mg/dL (0.7-1.3); INTERNATIONAL NORMALIZED RATIO 1.02 (0.93-1.1); PROTHROMBIN TIME 10.9 Seconds (9.6-11.5)
[2020-11-01 18:04] LABS: ALKALINE PHOSPHATASE 285 U/L (45-117); BILIRUBIN,TOTAL 0.6 mg/dL (0.2-1.0); TOTAL PROTEIN 5.3 g/dL (6.4-8.2)
--- NOTE | 2020-11-01 18:09 | NUR ---
POC DISCUSSED WITH PT. WILL CONTINUE TO MONITOR
[2020-11-01] MEDS ORDERED: LIDOCAINE-MPF 1%, 5ML ONE (18:10)
--- NOTE | 2020-11-01 18:12 | NUR ---
TO ULTRASOUND VIA GURNEY FOR THORACENTESIS
--- NOTE | 2020-11-01 18:48 | NUR ---
PT BACK FROM US. TOLERATED PROCEEDURE WELL, PER REPORT THEY WERE ABLE TO PULL 2L OF FLUID AND PT REQUESTED NO MORE TO BE TAKEN OFF
--- NOTE | 2020-11-01 18:52 | NUR ---
BEDSIDE REPORT FROM ROMULO AUGUSTINEPOINTER MACHINE OPERATOR OF CARE AT THIS TIME, PT RESTING ON GURNEY COMFORTABLY WITH NO NEEDS.
[2020-11-01 19:18] VITALS: BP 134/82
--- NOTE | 2020-11-01 19:19 | NUR ---
Patient/Caregiver given discharge instructions and they have confirmed that they understand the instructions. Patient ambulatory with steady gait.
== END 2020-11-01 19:26 | disposition home or self-care (01) ==
LOC: ED 18:31
DX: J90 Pleural effusion, not elsewhere classified (principal); K74.60 Unspecified cirrhosis of liver; R06.02 Shortness of breath; R00.0 Tachycardia, unspecified
CPT/HCPCS: 32555; 36415; 71045; 80053; 85025; 85610; 85730; 93005; 99285

== ENCOUNTER 2020-11-22 17:57 | Emergency (ER) | payer MEDICAID ==
[~2020-11-22] VITALS: Ht 170.2 cm; Wt 115.3 kg
--- NOTE | 2020-11-22 18:17 | NUR ---
THIS IS A 35 YO M W/ C/O ABD DISTENTION X1 MONTH. PT REPORTS STARTED AFTER LAST TAP. HISTORY OF CIRRHOSIS. PT RESTING ON [employer] W/ CALL LIGHT IN REACH AND SIDE RAILS UPX2. RESP EVEN AND UNLABORED, FERMIN.
--- NOTE | 2020-11-22 18:47 | NUR ---
REPORT GIVEN TREVOR AUGUSTINE. PT RESTING ON [employer] W/ CALL LIGHT IN REACH AND SIDE RAILS UPX2. RESP EVEN AND UNLABORED, NAVN. AWAITING ORDERS.
--- NOTE | 2020-11-22 19:53 | NUR ---
Pt calm in room. Family at bedside. Physician at bedside to perform procedure. Will monitor.
[2020-11-22 21:42] VITALS: BP 133/80
--- NOTE | 2020-11-22 21:43 | NUR ---
Patient/Caregiver given discharge instructions and they have confirmed that they understand the instructions. Patient ambulatory with steady gait. Pt states feeling much better and ok to go home. Pt called for a ride.
== END 2020-11-22 21:45 | disposition home or self-care (01) ==
LOC: ED 18:43
DX: K70.30 Alcoholic cirrhosis of liver without ascites (principal); R05 Cough; R06.02 Shortness of breath; R06.2 Wheezing
CPT/HCPCS: 49083; 71045; 99285

== ENCOUNTER 2020-12-19 10:49 | Inpatient (IN) | payer MEDICAID ==
[~2020-12-19] VITALS: Ht 170.2 cm; Wt 100.3 kg
[~2020-12-19 10:49] MED LIST changes: +POTA-143 PO; -POTA20TA6 PO
--- NOTE | 2020-12-19 10:50 | NUR ---
In triage, pt very SOB, tachypneic, jaundiced, tachycardic, and attempts for BP x3 without success. Pt moved to room where BP can be assessed while pt is in better position and cares started.
[2020-12-19] MEDS ORDERED: LIDOCAINE 1%, 10ML ONE ×2 (11:20→13:19)
--- NOTE | 2020-12-19 11:24 | NUR ---
PT PRESENTS TO ED WITH C/O SOB X 2 WEEKS, DENIES INFECTIOUS SYMPTOMS OR COVID EXPOSURE. PT HAS HX LIVER FAILURE WITH REPEATED PARACENTESIS, LAST ONE MONTH AGO. PT IS AWAKE, ALERT, AND ORIENTED. TACYNPEIC, RESPS RAPID AND SHALLOW. PT REPORTS GENERALIZED ABD PAIN X 2 WEEKS. PT ATTACHED TO ALL MONITORS, SINUS TACH RATE 150-160'S WITH NO ECTOPY. MD AWARE. PIV PLACED, NS INFUSING, LABS DRAWN. AWAITING LABWORK, SECOND BLOOD CULTURE PRIOR TO ABX INFUSION, AND IR FOR PARACENTESIS.
[2020-12-19] MEDS ORDERED: PIPERACILLIN/TAZO/PMX 3.375GM 50 ML IVPB ONE (11:30)
[2020-12-19] MEDS ORDERED: SODIUM CHLORIDE 0.9% 1,000 ML IV SCH (11:30)
--- NOTE | 2020-12-19 11:30 | NUR ---
BLOOD CX DRAWN X 2, AT BEDSIDE.
[2020-12-19] MEDS ORDERED: PIPERACILLIN/TAZO/PMX 3.375GM 50 ML ONE (11:33)
--- NOTE | 2020-12-19 11:46 | NUR ---
pt to US for paracentesis, aware. RN accompanying pt, pt monitored on lunchroom monitor for procedure. unasyn initiated per emar after blood cx drawn x 2, verfied with lab.
[2020-12-19 11:50] LABS: BASOPHILS % (AUTO) 1 % (0-1); EOSINOPHILS % (AUTO) 1 % (1-7); LYMPHOCYTES % (AUTO) 19 % (22-44); MEAN CORPUSCULAR HEMOGLOBIN 24.8 pg (27.5-34.5); MEAN CORPUSCULAR HGB CONC 32.1 g/dL (33.2-36.2); MONOCYTES % (AUTO) 2 % (2-9); NEUTROPHILS % (AUTO) 77 % (42-75); PLATELET COUNT 315 x10^3/uL (130-400); RED CELL DISTRIBUTION WIDTH 16.8 % (9.4-14.8)
--- NOTE | 2020-12-19 11:57 | NUR ---
all monitors in place, pt monitored intraprocedure by this RN. pt is sinus tach, rate 150s with no ectopy. spo2 and bp tolerating, resp rate 28-30, shallow and rapid. pt a&o, able to speak in short sentences.
[2020-12-19 12:02] LABS: ALANINE AMINOTRANSFERASE 18 U/L (12-78); ALBUMIN 1.5 g/dL (3.4-5.0); ANION GAP 7 mmol/L (5-15); CALCIUM 7.8 mg/dL (8.5-10.1); CHLORIDE 107 mmol/L (98-107); INTERNATIONAL NORMALIZED RATIO 0.99 (0.93-1.1); PROTHROMBIN TIME 10.6 Seconds (9.6-11.5)
[2020-12-19 12:04] LABS: ALKALINE PHOSPHATASE 210 U/L (45-117); BILIRUBIN,TOTAL 0.9 mg/dL (0.2-1.0); TOTAL PROTEIN 5.7 g/dL (6.4-8.2)
[2020-12-19] MEDS ORDERED: omeprazole PO (12:05)
[2020-12-19] MEDS ORDERED: [UNRECOGNIZED DRUG - REMARK] PO (12:06)
--- NOTE | 2020-12-19 12:22 | NUR ---
pt back from US with this RN, paracentesis complete. 8 L total taken. bp tolerating. pt is a&ox4, resps even, shallow. pt able to speak in full sentences. pt is sinus tach rat 140s on monitor with no ectopy. chart up for recheck, awaiting MD and dispo.
--- NOTE | 2020-12-19 12:30 | NUR ---
MD notified pt's RR remains approx 30, HR remains 140-150 sinus tach. MD instructed RN to bolus remainder of liter NS initiated. MD at bedside with POC ultrasound to evaluate pleural effusions. NS rate increased to 1000mL/hr.
--- NOTE | 2020-12-19 13:18 | NUR ---
PT A&O, RESPS EVEN AND UNLABORED, SINUS TACH RATE 140'S ON MOUNTER SOUSAPHONES WITH NO ECTOPY. PT ABLE TO SPEAK IN FULL SENTENCES, SATURATING 99% ON OXYGEN AT 4L/MIN. PT REPORTS DYSPNEA IMPROVED. PARACENTESIS SITE CDI. AT BEDSIDE. HOSPITALIST TEVIN AT BEDSIDE. REPORT GIVEN TO DAVIDE FLORES AND HOSPITALIST TEVIN AT BEDSIDE.
--- NOTE | 2020-12-19 13:41 | NUR ---
REPORT GIVEN TO JACK AUGUSTINE. PT AWAITNG TRANSPORT.
--- NOTE | 2020-12-19 13:42 | NUR ---
PER ANN ABARCA PT IS TO BE HELD IN ED FOR OBS S/P THORACENTESIS.
[2020-12-19] MEDS ORDERED: ONDANSETRON 2MG/ML, 2ML IVPush PRN (14:00)
[2020-12-19] MEDS ORDERED: ACETAMINOPHEN 325 MG TABLET PO PRN (14:00)
--- NOTE | 2020-12-19 14:12 | NUR ---
MED WALTER FROM PHARMACY
--- NOTE | 2020-12-19 14:21 | NUR ---
PT PROVIDED W/ WATER OK PER ANN HILLIARD.
[2020-12-19] MEDS ORDERED: CEFTRIAXONE PMX 2GM/50ML 50 ML ONE (14:25)
[2020-12-19] MEDS: CEFTRIAXONE PMX 2GM/50ML 50 ML IVPB SCH (14:33)
[2020-12-19] MEDS: ALBUMIN HUMAN 25% 100 ML IV SCH ×2 (14:36→22:22)
[2020-12-19 15:04] VITALS: BP 127/86
[2020-12-19] MEDS: RIFAXIMIN 200 MG TABLET PO SCH ×2 (16:25→20:38)
[2020-12-19 19:37] VITALS: BP 124/86
[2020-12-19] MEDS: LACTULOSE 10 GM/15 ML UDC PO SCH (20:38)
[2020-12-19] MEDS: OXYcodone IR 5MG TABLET PO PRN (22:22)
[2020-12-19 23:55] LABS: CHLORIDE,URINE RANDOM 15 mmol/L; POTASSIUM,URINE RANDOM 28 mmol/L; SODIUM,URINE RANDOM 9 mmol/L
[2020-12-19 23:57] LABS: MICROSCOPIC INDICATED
[2020-12-20 02:00] VITALS: BP 125/82
[2020-12-20 05:01] LABS: BASOPHILS % (AUTO) 0 % (0-1); EOSINOPHILS % (AUTO) 0 % (1-7); LYMPHOCYTES % (AUTO) 7 % (22-44); MEAN CORPUSCULAR HEMOGLOBIN 24.6 pg (27.5-34.5); MEAN PLATELET VOLUME 8.5 fL (7.4-10.4); MONOCYTES % (AUTO) 10 % (2-9); NEUTROPHILS % (AUTO) 83 % (42-75); PLATELET COUNT 105 x10^3/uL (130-400); RED BLOOD COUNT 3.34 x10^6/uL (4.38-5.82); RED CELL DISTRIBUTION WIDTH 17.2 % (9.4-14.8)
[2020-12-20 05:10] LABS: ALANINE AMINOTRANSFERASE 11 U/L (12-78); ALBUMIN 1.6 g/dL (3.4-5.0); ANION GAP 7 mmol/L (5-15); CALCIUM 7.4 mg/dL (8.5-10.1); CHLORIDE 108 mmol/L (98-107); CREATININE 1.39 mg/dL (0.7-1.3)
[2020-12-20 05:21] LABS: ALKALINE PHOSPHATASE 108 U/L (45-117); TOTAL PROTEIN 4.3 g/dL (6.4-8.2)
[2020-12-20] MEDS: ALBUMIN HUMAN 25% 100 ML IV SCH (06:29)
[2020-12-20 06:49] VITALS: BP 127/76
[2020-12-20] MEDS: LACTULOSE 10 GM/15 ML UDC PO SCH ×2 (07:50→20:14)
[2020-12-20] MEDS: SPIRONOLACTONE 100 MG TABLET PO SCH (07:50)
[2020-12-20] MEDS: FOLIC ACID 1 MG TABLET PO SCH (07:50)
[2020-12-20] MEDS: RIFAXIMIN 200 MG TABLET PO SCH ×3 (07:51→20:15)
[2020-12-20] MEDS: THIAMINE 100MG TABLET PO SCH (07:51)
[2020-12-20] MEDS ORDERED: HEPARIN 5,000 UNITS/ML, 1ML SQ SCH (08:00)
[2020-12-20] MEDS ORDERED: FUROSEMIDE 40 MG/4 ML IV SCH (09:00)
[2020-12-20] MEDS ORDERED: FUROSEMIDE 40 MG TABLET PO SCH (09:00)
[2020-12-20] MEDS ORDERED: MAGNESIUM SULFATE PMX 2GM/50ML 50 ML IV ONE (09:00)
[2020-12-20] MEDS ORDERED: MAGNESIUM SULFATE PMX 2GM/50ML 50 ML ONE (09:01)
[2020-12-20 13:39] VITALS: BP 120/76
[2020-12-20] MEDS: CEFTRIAXONE PMX 2GM/50ML 50 ML IVPB SCH (13:53)
[2020-12-20] MEDS: OXYcodone IR 5MG TABLET PO PRN (18:21)
[2020-12-20] MEDS: CARVEDILOL 3.125 MG TABLET PO SCH (18:21)
[2020-12-20 18:23] VITALS: BP 113/68
[2020-12-20 19:22] VITALS: BP 109/62
[2020-12-21 02:01] VITALS: BP 101/56
[2020-12-21 05:22] LABS: BASOPHILS % (AUTO) 0 % (0-1); EOSINOPHILS % (AUTO) 1 % (1-7); LYMPHOCYTES % (AUTO) 8 % (22-44); MEAN CORPUSCULAR HEMOGLOBIN 25.1 pg (27.5-34.5); MEAN CORPUSCULAR HGB CONC 32.8 g/dL (33.2-36.2); MEAN PLATELET VOLUME 8.8 fL (7.4-10.4); MONOCYTES % (AUTO) 12 % (2-9); NEUTROPHILS % (AUTO) 79 % (42-75); PLATELET COUNT 91 x10^3/uL (130-400); RED BLOOD COUNT 2.93 x10^6/uL (4.38-5.82)
[2020-12-21 05:26] LABS: INTERNATIONAL NORMALIZED RATIO 1.13 (0.93-1.1); PROTHROMBIN TIME 12.1 Seconds (9.6-11.5)
[2020-12-21 05:28] LABS: ALANINE AMINOTRANSFERASE 10 U/L (12-78); ALBUMIN 1.4 g/dL (3.4-5.0); ANION GAP 7 mmol/L (5-15); CALCIUM 7.4 mg/dL (8.5-10.1); CHLORIDE 108 mmol/L (98-107); CREATININE 1.63 mg/dL (0.7-1.3)
[2020-12-21 05:30] LABS: ALKALINE PHOSPHATASE 93 U/L (45-117); BILIRUBIN,TOTAL 0.5 mg/dL (0.2-1.0); TOTAL PROTEIN 4.3 g/dL (6.4-8.2)
[2020-12-21 05:47] VITALS: BP 132/64
[2020-12-21] MEDS: CARVEDILOL 3.125 MG TABLET PO SCH ×2 (05:48→17:05)
[2020-12-21 06:59] VITALS: BP 91/60
[2020-12-21] MEDS: SPIRONOLACTONE 100 MG TABLET PO SCH (09:12)
[2020-12-21] MEDS: RIFAXIMIN 200 MG TABLET PO SCH ×3 (09:12→20:43)
[2020-12-21] MEDS: THIAMINE 100MG TABLET PO SCH (09:12)
[2020-12-21] MEDS: FOLIC ACID 1 MG TABLET PO SCH (09:12)
[2020-12-21] MEDS: LACTULOSE 10 GM/15 ML UDC PO SCH ×2 (09:12→20:43)
[2020-12-21] MEDS: CEFTRIAXONE PMX 2GM/50ML 50 ML IVPB SCH (13:43)
[2020-12-21 14:22] VITALS: BP 108/68
[2020-12-21 18:47] VITALS: BP 109/70
[2020-12-22 02:00] VITALS: BP 101/62
[2020-12-22] MEDS: CARVEDILOL 3.125 MG TABLET PO SCH ×2 (05:10→16:55)
[2020-12-22 05:55] LABS: BASOPHILS % (AUTO) 0 % (0-1); EOSINOPHILS % (AUTO) 1 % (1-7); LYMPHOCYTES % (AUTO) 7 % (22-44); MEAN CORPUSCULAR HEMOGLOBIN 24.8 pg (27.5-34.5); MEAN CORPUSCULAR HGB CONC 32.4 g/dL (33.2-36.2); MEAN PLATELET VOLUME 8.8 fL (7.4-10.4); MONOCYTES % (AUTO) 9 % (2-9); NEUTROPHILS % (AUTO) 83 % (42-75); PLATELET COUNT 99 x10^3/uL (130-400); RED BLOOD COUNT 3.02 x10^6/uL (4.38-5.82); RED CELL DISTRIBUTION WIDTH 16.7 % (9.4-14.8)
[2020-12-22 06:11] LABS: CALCIUM 7.5 mg/dL (8.5-10.1); CHLORIDE 104 mmol/L (98-107)
[2020-12-22 06:17] LABS: ALANINE AMINOTRANSFERASE 9 U/L (12-78); ALBUMIN 1.3 g/dL (3.4-5.0); ALKALINE PHOSPHATASE 106 U/L (45-117); ANION GAP 9 mmol/L (5-15); BILIRUBIN,TOTAL 0.5 mg/dL (0.2-1.0); CREATININE 2.22 mg/dL (0.7-1.3); TOTAL PROTEIN 4.5 g/dL (6.4-8.2)
[2020-12-22 06:41] VITALS: BP 101/66
[2020-12-22] MEDS: LACTULOSE 10 GM/15 ML UDC PO SCH ×2 (09:37→20:18)
[2020-12-22] MEDS: FOLIC ACID 1 MG TABLET PO SCH (09:37)
[2020-12-22] MEDS: RIFAXIMIN 200 MG TABLET PO SCH ×3 (09:38→20:18)
[2020-12-22] MEDS: THIAMINE 100MG TABLET PO SCH (09:38)
[2020-12-22] MEDS: SPIRONOLACTONE 100 MG TABLET PO SCH (09:38)
[2020-12-22] MEDS: OXYcodone IR 5MG TABLET PO PRN (09:52)
[2020-12-22 12:53] VITALS: BP 109/69
[2020-12-22] MEDS: CEFTRIAXONE PMX 2GM/50ML 50 ML IVPB SCH (14:22)
[2020-12-22] MEDS ORDERED: ALBUMIN HUMAN 25% 100 ML IV ONE (14:30)
[2020-12-22] MEDS ORDERED: LIDOCAINE 1%, 10ML ONE (15:11)
[2020-12-22 18:13] LABS: POTASSIUM,URINE RANDOM 24 mmol/L; SODIUM,URINE RANDOM 7 mmol/L
[2020-12-22 18:14] LABS: CHLORIDE,URINE RANDOM < 10 mmol/L
[2020-12-22 19:30] VITALS: BP 115/70
[2020-12-23 00:45] VITALS: BP 104/65
[2020-12-23 05:14] LABS: BASOPHILS % (AUTO) 0 % (0-1); EOSINOPHILS % (AUTO) 3 % (1-7); LYMPHOCYTES % (AUTO) 10 % (22-44); MEAN CORPUSCULAR HEMOGLOBIN 24.5 pg (27.5-34.5); MEAN CORPUSCULAR HGB CONC 31.9 g/dL (33.2-36.2); MEAN PLATELET VOLUME 8.6 fL (7.4-10.4); MONOCYTES % (AUTO) 11 % (2-9); NEUTROPHILS % (AUTO) 76 % (42-75); PLATELET COUNT 95 x10^3/uL (130-400); RED BLOOD COUNT 2.96 x10^6/uL (4.38-5.82)
[2020-12-23 05:23] LABS: CHLORIDE 106 mmol/L (98-107)
[2020-12-23 05:31] LABS: ALANINE AMINOTRANSFERASE 8 U/L (12-78); ALBUMIN 1.5 g/dL (3.4-5.0); ALKALINE PHOSPHATASE 130 U/L (45-117); ANION GAP 6 mmol/L (5-15); BILIRUBIN,TOTAL 0.3 mg/dL (0.2-1.0); CALCIUM 7.9 mg/dL (8.5-10.1); TOTAL PROTEIN 4.5 g/dL (6.4-8.2)
[2020-12-23 05:43] VITALS: BP 117/72
[2020-12-23] MEDS: CARVEDILOL 3.125 MG TABLET PO SCH ×2 (05:44→17:55)
[2020-12-23 07:07] VITALS: BP 103/66
[2020-12-23] MEDS: RIFAXIMIN 200 MG TABLET PO SCH ×3 (09:55→20:17)
[2020-12-23] MEDS: FOLIC ACID 1 MG TABLET PO SCH (09:55)
[2020-12-23] MEDS: THIAMINE 100MG TABLET PO SCH (09:55)
[2020-12-23] MEDS: LACTULOSE 10 GM/15 ML UDC PO SCH ×2 (09:56→20:17)
[2020-12-23] MEDS: ALBUMIN HUMAN 25% 100 ML IV SCH ×2 (09:57→17:55)
[2020-12-23 13:14] VITALS: BP 129/81
[2020-12-23 14:13] LABS: OCCULT BLOOD POSITIVE (NEGATIVE)
[2020-12-23] MEDS: CEFTRIAXONE PMX 2GM/50ML 50 ML IVPB SCH (14:30)
[2020-12-23] MEDS: OMEPRAZOLE 20 MG CAPSULE.DR PO SCH (17:55)
[2020-12-23 19:01] VITALS: BP 110/68
[2020-12-24] MEDS: ALBUMIN HUMAN 25% 100 ML IV SCH (01:41)
[2020-12-24 02:00] VITALS: BP 114/73
[2020-12-24] MEDS: CARVEDILOL 3.125 MG TABLET PO SCH ×2 (05:59→17:09)
[2020-12-24 06:51] VITALS: BP 114/70
[2020-12-24] MEDS: RIFAXIMIN 200 MG TABLET PO SCH ×3 (07:31→20:22)
[2020-12-24] MEDS: FOLIC ACID 1 MG TABLET PO SCH (07:31)
[2020-12-24] MEDS: THIAMINE 100MG TABLET PO SCH (07:31)
[2020-12-24] MEDS: OMEPRAZOLE 20 MG CAPSULE.DR PO SCH (07:31)
[2020-12-24] MEDS: LACTULOSE 10 GM/15 ML UDC PO SCH ×2 (07:32→20:22)
[2020-12-24] MEDS ORDERED: CHLORHEXIDINE 15 ML UDC MM ONE (10:30)
[2020-12-24] MEDS ORDERED: PROPOFOL 10 MG/ML, 20ML ONE (11:30)
[2020-12-24] MEDS ORDERED: SUCRALFATE 1 GM/10 ML UDC PO SCH (12:00)
[2020-12-24 12:17] VITALS: BP 109/74
[2020-12-24] MEDS: CEFTRIAXONE PMX 2GM/50ML 50 ML IVPB SCH (13:48)
[2020-12-24] MEDS: MOVIPREP POWDER 1 PREP KIT PO SCH ×2 (17:50→20:22)
[2020-12-24 19:13] VITALS: BP 132/84
[2020-12-25] VITALS (9 sets, daily range): BP systolic 103–133; BP diastolic 69–87
[2020-12-25] MEDS: CARVEDILOL 3.125 MG TABLET PO SCH ×2 (05:22→17:46)
[2020-12-25 05:34] LABS: ALBUMIN 1.7 g/dL (3.4-5.0); ANION GAP 7 mmol/L (5-15); CALCIUM 7.6 mg/dL (8.5-10.1); CHLORIDE 115 mmol/L (98-107)
[2020-12-25 05:36] LABS: MEAN CORPUSCULAR HEMOGLOBIN 24.8 pg (27.5-34.5); MEAN CORPUSCULAR HGB CONC 32.3 g/dL (33.2-36.2); MEAN PLATELET VOLUME 8.7 fL (7.4-10.4); PLATELET COUNT 129 x10^3/uL (130-400); RED BLOOD COUNT 2.83 x10^6/uL (4.38-5.82); RED CELL DISTRIBUTION WIDTH 16.9 % (9.4-14.8)
[2020-12-25 05:38] LABS: ALANINE AMINOTRANSFERASE 11 U/L (12-78); ALKALINE PHOSPHATASE 176 U/L (45-117); BILIRUBIN,TOTAL 0.5 mg/dL (0.2-1.0); CREATININE 1.17 mg/dL (0.7-1.3); TOTAL PROTEIN 4.3 g/dL (6.4-8.2)
[2020-12-25 06:20] LABS: BANDS%(MANUAL) 2 % (0-7); EOS#(MANUAL) 0.16 x10^3/uL (0.0-0.4); EOS% (MANUAL) 3 % (1-7); LYMPH#(MANUAL) 0.68 x10^3/uL (1-3.4); LYMPHS% (MANUAL) 13 % (22-44); METAMYELOCYTES% (MANUAL) 2 % (0-1); MONOS#(MANUAL) 0.21 x10^3/uL (0.3-2.7); MONOS% (MANUAL) 4 % (2-9); SEG#(MANUAL) 3.95 x10^3/uL (1.8-6.8); SEGS% (MANUAL) 76 % (42-75)
[2020-12-25 06:24] LABS: ANISOCYTOSIS 1+; MICROCYTOSIS 1+
[2020-12-25 06:25] LABS: <PLATELET ESTIMATE> DECREASED; <PLT MORPHOLOGY> NORMAL PLT MORPH; OVALOCYTES 1+
[2020-12-25 06:26] LABS: TEAR DROPS 1+
[2020-12-25] MEDS ORDERED: ONDANSETRON 2MG/ML, 2ML IVPush PRN ×2 (07:30)
[2020-12-25] MEDS ORDERED: MEPERIDINE/PF 25MG/0.5ML IVPush PRN (07:30)
[2020-12-25] MEDS ORDERED: LABETALOL 5MG/ML, 20ML IV PRN ×2 (07:30)
[2020-12-25] MEDS ORDERED: PROMETHAZINE 25 MG/ML, 1ML IVPush PRN ×2 (07:30)
[2020-12-25] MEDS ORDERED: hydrALAzine 20 MG/ML, 1ML IV PRN ×2 (07:30)
[2020-12-25] MEDS ORDERED: ACETAMINOPHEN 325 MG TABLET PO PRN (07:30)
[2020-12-25] MEDS ORDERED: HYDROmorphone 1 MG/ML, 1ML INJ IVPush PRN ×2 (07:30)
[2020-12-25] MEDS ORDERED: FENTANYL PF 100 MCG/2ML IV PRN ×2 (07:30)
[2020-12-25] MEDS ORDERED: OXYcodone 5 MG/5 ML ORAL.SOL UDC PO PRN ×2 (07:30)
[2020-12-25] MEDS: FOLIC ACID 1 MG TABLET PO SCH (07:34)
[2020-12-25] MEDS: LACTULOSE 10 GM/15 ML UDC PO SCH ×2 (07:34→21:31)
[2020-12-25] MEDS: THIAMINE 100MG TABLET PO SCH (07:35)
[2020-12-25] MEDS: RIFAXIMIN 200 MG TABLET PO SCH ×3 (07:35→21:31)
[2020-12-25] MEDS: OMEPRAZOLE 20 MG CAPSULE.DR PO SCH (07:35)
[2020-12-25] MEDS ORDERED: CHLORHEXIDINE 15 ML UDC ONE (08:48)
[2020-12-25] MEDS ORDERED: FENTANYL PF 100 MCG/2ML ONE (08:49)
[2020-12-25] MEDS ORDERED: MIDAZOLAM 1 MG/ML, 2ML ONE (08:49)
[2020-12-25] MEDS ORDERED: OMEPRAZOLE 20 MG CAPSULE.DR PO SCH (09:00)
[2020-12-25] MEDS ORDERED: GLUCAGON 1 MG ONE (10:47)
[2020-12-25] MEDS: CEFTRIAXONE PMX 2GM/50ML 50 ML IVPB SCH (13:37)
[2020-12-25] MEDS: VALACYCLOVIR 500MG TABLET PO SCH ×2 (15:51→21:30)
[2020-12-26 00:45] VITALS: BP 131/85
[2020-12-26 04:56] VITALS: BP 127/77
[2020-12-26] MEDS: CARVEDILOL 3.125 MG TABLET PO SCH ×2 (04:57→17:31)
[2020-12-26] MEDS: VALACYCLOVIR 500MG TABLET PO SCH ×3 (04:58→21:30)
[2020-12-26 07:50] VITALS: BP 116/74
[2020-12-26 07:56] LABS: BASOPHILS % (AUTO) 1 % (0-1); EOSINOPHILS % (AUTO) 3 % (1-7); LYMPHOCYTES % (AUTO) 14 % (22-44); MEAN CORPUSCULAR HGB CONC 32.1 g/dL (33.2-36.2); MEAN PLATELET VOLUME 8.5 fL (7.4-10.4); MONOCYTES % (AUTO) 11 % (2-9); NEUTROPHILS % (AUTO) 73 % (42-75); PLATELET COUNT 116 x10^3/uL (130-400); RED BLOOD COUNT 3.18 x10^6/uL (4.38-5.82); RED CELL DISTRIBUTION WIDTH 16.9 % (9.4-14.8)
[2020-12-26 08:01] LABS: ALBUMIN 1.7 g/dL (3.4-5.0); ANION GAP 6 mmol/L (5-15); CALCIUM 7.9 mg/dL (8.5-10.1); CHLORIDE 114 mmol/L (98-107)
[2020-12-26 08:03] LABS: ALANINE AMINOTRANSFERASE 11 U/L (12-78); ALKALINE PHOSPHATASE 194 U/L (45-117); BILIRUBIN,TOTAL 0.5 mg/dL (0.2-1.0); CREATININE 1.17 mg/dL (0.7-1.3); TOTAL PROTEIN 4.6 g/dL (6.4-8.2)
[2020-12-26] MEDS: OMEPRAZOLE 20 MG CAPSULE.DR PO SCH (08:49)
[2020-12-26] MEDS: SPIRONOLACTONE 50 MG TABLET PO SCH (08:50)
[2020-12-26] MEDS: FUROSEMIDE 40 MG TABLET PO SCH (08:50)
[2020-12-26] MEDS: THIAMINE 100MG TABLET PO SCH (08:50)
[2020-12-26] MEDS: FOLIC ACID 1 MG TABLET PO SCH (08:50)
[2020-12-26] MEDS: RIFAXIMIN 200 MG TABLET PO SCH ×3 (08:50→21:30)
[2020-12-26] MEDS: LACTULOSE 10 GM/15 ML UDC PO SCH ×2 (08:51→21:30)
[2020-12-26 13:15] VITALS: BP 121/75
[2020-12-26] MEDS: CEFTRIAXONE PMX 2GM/50ML 50 ML IVPB SCH (14:23)
[2020-12-26 19:06] VITALS: BP 133/84
[2020-12-27 00:11] VITALS: BP 112/71
[2020-12-27 05:02] VITALS: BP 125/76
[2020-12-27] MEDS: VALACYCLOVIR 500MG TABLET PO SCH ×3 (05:05→20:44)
[2020-12-27] MEDS: CARVEDILOL 3.125 MG TABLET PO SCH ×2 (05:05→17:04)
[2020-12-27 06:46] VITALS: BP 121/78
[2020-12-27] MEDS: FOLIC ACID 1 MG TABLET PO SCH (09:25)
[2020-12-27] MEDS: FUROSEMIDE 40 MG TABLET PO SCH (09:25)
[2020-12-27] MEDS: SPIRONOLACTONE 50 MG TABLET PO SCH (09:25)
[2020-12-27] MEDS: THIAMINE 100MG TABLET PO SCH (09:25)
[2020-12-27] MEDS: LACTULOSE 10 GM/15 ML UDC PO SCH ×2 (09:26→20:44)
[2020-12-27] MEDS: OMEPRAZOLE 20 MG CAPSULE.DR PO SCH (09:26)
[2020-12-27] MEDS: RIFAXIMIN 200 MG TABLET PO SCH ×3 (09:26→20:44)
[2020-12-27 12:39] VITALS: BP 131/83
[2020-12-27] MEDS ORDERED: LIDOCAINE 1%, 10ML ONE (13:21)
[2020-12-27] MEDS: CEFTRIAXONE PMX 2GM/50ML 50 ML IVPB SCH (14:09)
[2020-12-27 19:40] VITALS: BP 120/79
[2020-12-28 00:48] VITALS: BP 119/74
[2020-12-28] MEDS: CARVEDILOL 3.125 MG TABLET PO SCH ×2 (05:20→17:22)
[2020-12-28] MEDS: VALACYCLOVIR 500MG TABLET PO SCH ×2 (05:20→14:05)
[2020-12-28 06:33] VITALS: BP 120/76
[2020-12-28] MEDS: LACTULOSE 10 GM/15 ML UDC PO SCH (08:38)
[2020-12-28] MEDS: FOLIC ACID 1 MG TABLET PO SCH (08:38)
[2020-12-28] MEDS: RIFAXIMIN 200 MG TABLET PO SCH ×2 (08:38→16:25)
[2020-12-28] MEDS: THIAMINE 100MG TABLET PO SCH (08:38)
[2020-12-28] MEDS: SPIRONOLACTONE 50 MG TABLET PO SCH (08:39)
[2020-12-28] MEDS: FUROSEMIDE 40 MG TABLET PO SCH (08:39)
[2020-12-28] MEDS: OMEPRAZOLE 20 MG CAPSULE.DR PO SCH (08:39)
[2020-12-28 12:13] VITALS: BP 122/80
[2020-12-28] MEDS ORDERED: LACT10SO24 PO (13:57)
[2020-12-28] MEDS ORDERED: LEVO500T8 PO (13:57)
[2020-12-28] MEDS ORDERED: RIFA200T5 PO (13:57)
[2020-12-28] MEDS: CEFTRIAXONE PMX 2GM/50ML 50 ML IVPB SCH (14:05)
== END 2020-12-28 18:08 | disposition home or self-care (01) | DRG 871 ==
LOC: ED 12:25 → EDIP 12:40 → 4WST 14:57
PROVIDERS: ADMIT Hospitalist; ATTEND Internal Medicine
PROC: 0W9G3ZZ Drainage of Peritoneal Cavity, Percutaneous Approach (ICD-10-PCS; principal; 2020-12-19)
PROC: 0W993ZZ Drainage of Right Pleural Cavity, Percutaneous Approach (ICD-10-PCS; 2020-12-19)
PROC: 0W9G3ZZ Drainage of Peritoneal Cavity, Percutaneous Approach (ICD-10-PCS; 2020-12-22)
PROC: 30233N1 Transfusion of Nonautologous Red Blood Cells into Peripheral Vein, Percutaneous Approach (ICD-10-PCS; 2020-12-25)
PROC: 0DBM8ZZ Excision of Descending Colon, Via Natural or Artificial Opening Endoscopic (ICD-10-PCS; 2020-12-25)
PROC: 0DBL8ZZ Excision of Transverse Colon, Via Natural or Artificial Opening Endoscopic (ICD-10-PCS; 2020-12-25)
PROC: 0W9G3ZZ Drainage of Peritoneal Cavity, Percutaneous Approach (ICD-10-PCS; 2020-12-27)
DX: A40.8 Other streptococcal sepsis (principal); G93.41 Metabolic encephalopathy; J96.01 Acute respiratory failure with hypoxia; K65.2 Spontaneous bacterial peritonitis; K76.7 Hepatorenal syndrome; E87.1 Hypo-osmolality and hyponatremia; J90 Pleural effusion, not elsewhere classified; J98.11 Atelectasis; K76.6 Portal hypertension; N17.9 Acute kidney failure, unspecified; Z20.822 Contact with and (suspected) exposure to COVID-19; D50.0 Iron deficiency anemia secondary to blood loss (chronic); I10 Essential (primary) hypertension; F10.20 Alcohol dependence, uncomplicated; J03.00 Acute streptococcal tonsillitis, unspecified; K29.70 Gastritis, unspecified, without bleeding; K31.89 Other diseases of stomach and duodenum; K63.5 Polyp of colon; K70.11 Alcoholic hepatitis with ascites; K70.31 Alcoholic cirrhosis of liver with ascites; K72.90 Hepatic failure, unspecified without coma; E88.09 Other disorders of plasma-protein metabolism, not elsewhere classified; Z82.49 Family history of ischemic heart disease and other diseases of the circulatory system; D69.6 Thrombocytopenia, unspecified; D63.8 Anemia in other chronic diseases classified elsewhere; E11.9 Type 2 diabetes mellitus without complications; D36.9 Benign neoplasm, unspecified site
CPT/HCPCS: 32555; 36415; 82042; 82945; 83986; 84145; 89051; 96365; 99285; J3490; 49083; 71045; 80053; 80320; 81001; 82140; 82272; 82436; 83605; 83615; 83690; 83735; 84100; 84133; 84157; 84300; 84443; 85014; 85018; 85025; 85610; 86850; 86900; 86923; 87040; 87070; 87086; 87181; 87205; 88305; 93005; 93306; 93356; 93970; G0378; J0696; J1644; J1940; J2250; J2543; J2704; J3010; P9047; G0480; J1610; J3475; J7030; P9016; U0003

== ENCOUNTER 2021-02-21 07:24 | Emergency (ER) | payer MEDICAID ==
[~2021-02-21] VITALS: Ht 170.2 cm; Wt 115.3 kg
[~2021-02-21 07:24] MED LIST changes: +LEVO500T8 PO; -POTA-143 PO; +POTA20TA6 PO; +RIFA200T5 PO; +[UNRECOGNIZED DRUG - REMARK] PO; +omeprazole PO
[2021-02-21 08:14] LABS: BASOPHILS % (AUTO) 1 % (0-1); EOSINOPHILS % (AUTO) 1 % (1-7); LYMPHOCYTES % (AUTO) 13 % (22-44); MEAN CORPUSCULAR HEMOGLOBIN 27.8 pg (27.5-34.5); MEAN CORPUSCULAR HGB CONC 33.6 g/dL (33.2-36.2); MEAN PLATELET VOLUME 7.5 fL (7.4-10.4); MONOCYTES % (AUTO) 9 % (2-9); NEUTROPHILS % (AUTO) 76 % (42-75); PLATELET COUNT 110 x10^3/uL (130-400); RED BLOOD COUNT 4.16 x10^6/uL (4.38-5.82); RED CELL DISTRIBUTION WIDTH 19.8 % (9.4-14.8)
[2021-02-21 08:23] LABS: ALANINE AMINOTRANSFERASE 17 U/L (12-78); ALBUMIN 1.2 g/dL (3.4-5.0); ANION GAP 9 mmol/L (5-15); CALCIUM 7.6 mg/dL (8.5-10.1); CHLORIDE 105 mmol/L (98-107); CREATININE 1.33 mg/dL (0.7-1.3)
[2021-02-21 08:25] LABS: ALKALINE PHOSPHATASE 200 U/L (45-117); BILIRUBIN,TOTAL 0.7 mg/dL (0.2-1.0); TOTAL PROTEIN 4.9 g/dL (6.4-8.2)
[2021-02-21 08:40] LABS: MD SCAN
--- NOTE | 2021-02-21 08:50 | NUR ---
PT STATES HAS HAD SWELLING IN THE ABD FOR [id number] WITH HX OF LIVER CIRROSIS AND LIVER FAILURE DUE TO BINGE DRINKING. PT STATES NO PAIN AT THE MOMENT. STATES PAIN COMES WHEN PT IS "IRRITATED"
--- NOTE | 2021-02-21 09:27 | NUR ---
PT IN RADIOLOGY FOR PARACENTESIS.
[2021-02-21] MEDS ORDERED: ALBUMIN HUMAN 25% 200 ML IV ONE (10:00)
--- NOTE | 2021-02-21 11:13 | NUR ---
ALBUMIN INFUSING, WILL CONTINUE TO MONITOR.
[2021-02-21 12:19] VITALS: BP 142/78
--- NOTE | 2021-02-21 12:41 | NUR ---
Patient given discharge instructions and they have confirmed that they understand the instructions. Patient ambulatory with steady gait. No questions at time of discharge.
== END 2021-02-21 12:43 | disposition home or self-care (01) ==
LOC: ED 07:42
DX: K70.31 Alcoholic cirrhosis of liver with ascites (principal); R10.84 Generalized abdominal pain; E77.8 Other disorders of glycoprotein metabolism; E88.09 Other disorders of plasma-protein metabolism, not elsewhere classified; I10 Essential (primary) hypertension; E11.9 Type 2 diabetes mellitus without complications
CPT/HCPCS: 36415; 49083; 80053; 83690; 85025; 96365; 96366; 99285; P9047

== ENCOUNTER 2021-03-10 02:54 | Inpatient (IN) | payer MEDICAID ==
[~2021-03-10] VITALS: Ht 167.6 cm; Wt 115.2 kg
--- NOTE | 2021-03-10 03:02 | NUR ---
INITIAL PT CONTACT. PT PRESENTS TO ED C/O SOB WORSENING X1 WEEK. PT REPORTS FEVER AND ASCITES WORSENING THE SOB. NO RECENT SICK CONTACT, PT RECEIVED FULL COURSE OF COVID VACCINATIONS IN DECEMBER. 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 PT REPORT PRIOR NEED FOR PARACENTESIS, 6 LITERS TAKEN OFF/DRAINED, "THE SWELLING CAME RIGHT BACK AND MADE MY SOB MUCH WORSE." PT SITTING UPRIGHT ON GURENY, SPEAKING IN 3-4 WORD SENTENCES, TACHYPNEA NOTED, SINUS TACH ON SUPERVISOR FRAME ASSEMBLY. PT ON 3L O2 VIA NASAL CANNULA, O2 SAT IMPROVED TO 96%, O2 PLACED IN TRIAGE. PT PLACED ON CONTINUOUS MONITORING. CALL LIGHT AND PERSONAL BELONGINGS WITHIN REACH. FAMILY AT BEDSIDE. ERP AT BEDSIDE
[2021-03-10] MEDS ORDERED: SODIUM CHLORIDE FLUSH 10ML SYR IVF ONE ×2 (03:30→05:00)
[2021-03-10] MEDS ORDERED: ONDANSETRON 2MG/ML, 2ML ONE (03:35)
[2021-03-10] MEDS ORDERED: LIDOCAINE-MPF 1%, 5ML ONE ×2 (03:49→10:20)
[2021-03-10 03:50] LABS: BASOPHILS % (AUTO) 0 % (0-1); EOSINOPHILS % (AUTO) 0 % (1-7); LYMPHOCYTES % (AUTO) 3 % (22-44); MEAN CORPUSCULAR HEMOGLOBIN 27.5 pg (27.5-34.5); MEAN CORPUSCULAR HGB CONC 33.2 g/dL (33.2-36.2); MEAN PLATELET VOLUME 7.6 fL (7.4-10.4); MONOCYTES % (AUTO) 5 % (2-9); NEUTROPHILS % (AUTO) 93 % (42-75); PLATELET COUNT 134 x10^3/uL (130-400); RED BLOOD COUNT 4.08 x10^6/uL (4.38-5.82); RED CELL DISTRIBUTION WIDTH 17.9 % (9.4-14.8)
[2021-03-10 03:58] LABS: ALANINE AMINOTRANSFERASE 17 U/L (12-78); ALBUMIN 1.3 g/dL (3.4-5.0); ANION GAP 12 mmol/L (5-15); CALCIUM 7.3 mg/dL (8.5-10.1); CHLORIDE 104 mmol/L (98-107); CREATININE 1.37 mg/dL (0.7-1.3)
[2021-03-10] MEDS ORDERED: ONDANSETRON 2MG/ML, 2ML IVPush ONE (04:00)
[2021-03-10 04:03] LABS: ALKALINE PHOSPHATASE 224 U/L (45-117); BILIRUBIN,TOTAL 0.5 mg/dL (0.2-1.0); TOTAL PROTEIN 5.4 g/dL (6.4-8.2); TROPONIN I < 0.015 ng/mL (0.000-0.045)
--- NOTE | 2021-03-10 04:08 | NUR ---
PT MOVED FROM ED ROOM 36 TO ED TRAUMA 1 FOR PARACENTESIS, CONSENT SIGNED BY ERP AND PT, AT BEDSIDE.
--- NOTE | 2021-03-10 04:12 | NUR ---
ERP AT BEDSIDE FOR PARACENTESIS
--- NOTE | 2021-03-10 04:45 | NUR ---
PARACENTESIS COMPLETE. 3L DRAINED. PT TOLERATED WELL. NO ADDITIONAL NEEDS AT THIS TIME. CALL LIGHT AND BELONGINGS WITHIN REACH.
[2021-03-10] MEDS ORDERED: LORazepam 2 MG/ML, 1ML ONE (04:57)
[2021-03-10] MEDS ORDERED: LORazepam 1MG TABLET PO PRN ×4 (05:00)
[2021-03-10] MEDS ORDERED: LABETALOL 5MG/ML, 20ML IVPush PRN (05:00)
[2021-03-10] MEDS ORDERED: FOLIC ACID 1 MG TABLET PO ONE (05:00)
[2021-03-10] MEDS ORDERED: DOCUSATE 100 MG CAPSULE PO PRN (05:00)
[2021-03-10] MEDS ORDERED: LORazepam 0.5MG TABLET PO PRN (05:00)
[2021-03-10] MEDS ORDERED: LORazepam 2 MG/ML, 1ML IVPush ONE (05:00)
[2021-03-10] MEDS ORDERED: ENOXAPARIN 40 MG/0.4 ML SQ SCH (05:00)
[2021-03-10] MEDS ORDERED: ONDANSETRON 2MG/ML, 2ML IVPush PRN (05:00)
[2021-03-10] MEDS ORDERED: MAGNESIUM SULFATE 1 GM, THIAMINE 100 MG, FOLIC ACID 1 MG, MVI ADULT 10 ML in SODIUM CHL... IV ONE (05:00)
[2021-03-10] MEDS ORDERED: LORazepam 2 MG/ML, 1ML IV PRN ×5 (05:00)
--- NOTE | 2021-03-10 05:15 | NUR ---
CALL TO PHARMACY REGARDING BANANA BAG ORDER, PHARMACY UNABLE TO COMPLETE MED ORDER DUE TO PHARMACIST NOT BEING AVAILABLE. WILL CHECK BACK LATER, PER CLERK RATING
[2021-03-10] MEDS ORDERED: THIAMINE 100MG TABLET PO ONE (05:30)
--- NOTE | 2021-03-10 05:42 | NUR ---
Pt to be admitted to [facility], room 486-2. Report called to JESUS ALBERTO AUGUSTINE. Addendum: 03/10/21 at 0556 by TRINI Pt to be admitted to [facility], room 490-2. Report called to JESUS ALBERTO AUGUSTINE.
[2021-03-10] MEDS ORDERED: THIAMINE 100MG TABLET ONE (05:44)
[2021-03-10] MEDS ORDERED: ENOXAPARIN 40 MG/0.4 ML ONE (05:44)
[2021-03-10] MEDS ORDERED: ALBUTEROL/IPRATROPIUM 2.5MG/0.5MG, 3 ML ONE (06:14)
[2021-03-10 06:20] LABS: INTERNATIONAL NORMALIZED RATIO 0.99 (0.93-1.1); PROTHROMBIN TIME 10.6 Seconds (9.6-11.5)
[2021-03-10] MEDS ORDERED: CEFTRIAXONE 1,000 MG in DEXTROSE 5% 50 ML IVPB ONE (06:30)
[2021-03-10] MEDS ORDERED: ALBUTEROL/IPRATROPIUM 2.5MG/0.5MG, 3 ML NPPB ONE (06:30)
[2021-03-10] MEDS ORDERED: AZITHROMYCIN 500 MG in SODIUM CHLORIDE 0.9% 250 ML IVPB ONE (06:30)
[2021-03-10 07:08] VITALS: BP 120/69
[2021-03-10] MEDS: MULTIVITAMINS/MINERALS TABLET PO SCH (09:16)
[2021-03-10] MEDS: HEPARIN 5,000 UNITS/ML, 1ML SQ SCH ×2 (09:17→16:38)
[2021-03-10 13:50] VITALS: BP 123/76
[2021-03-10] MEDS: ACETAMINOPHEN 325 MG TABLET PO PRN (16:38)
[2021-03-10 20:00] VITALS: BP 102/63
[2021-03-11] MEDS: HEPARIN 5,000 UNITS/ML, 1ML SQ SCH ×3 (00:16→16:23)
[2021-03-11 00:23] VITALS: BP 124/75
[2021-03-11 05:49] LABS: BASOPHILS % (AUTO) 1 % (0-1); EOSINOPHILS % (AUTO) 1 % (1-7); LYMPHOCYTES % (AUTO) 9 % (22-44); MEAN CORPUSCULAR HEMOGLOBIN 27.9 pg (27.5-34.5); MEAN CORPUSCULAR HGB CONC 32.7 g/dL (33.2-36.2); MONOCYTES % (AUTO) 8 % (2-9); NEUTROPHILS % (AUTO) 82 % (42-75); PLATELET COUNT 72 x10^3/uL (130-400); RED BLOOD COUNT 3.27 x10^6/uL (4.38-5.82); RED CELL DISTRIBUTION WIDTH 17.8 % (9.4-14.8)
[2021-03-11 06:13] LABS: CHLORIDE 104 mmol/L (98-107)
[2021-03-11 06:24] LABS: ALANINE AMINOTRANSFERASE 12 U/L (12-78); ALKALINE PHOSPHATASE 136 U/L (45-117); ANION GAP 10 mmol/L (5-15); BILIRUBIN,TOTAL 0.4 mg/dL (0.2-1.0); CALCIUM 7.3 mg/dL (8.5-10.1); TOTAL PROTEIN 4.3 g/dL (6.4-8.2)
[2021-03-11 08:04] VITALS: BP 112/72
[2021-03-11] MEDS: MULTIVITAMINS/MINERALS TABLET PO SCH (08:33)
[2021-03-11] MEDS: ACETAMINOPHEN 325 MG TABLET PO PRN (08:34)
[2021-03-11 12:34] VITALS: BP 119/78
[2021-03-11] MEDS ORDERED: LIDOCAINE-MPF 1%, 5ML ONE ×2 (15:42→15:43)
[2021-03-11 19:43] VITALS: BP 109/66
[2021-03-11] MEDS: RIFAXIMIN 200 MG TABLET PO SCH (21:00)
[2021-03-12] MEDS: HEPARIN 5,000 UNITS/ML, 1ML SQ SCH ×2 (00:30→08:20)
[2021-03-12 00:48] VITALS: BP 115/76
[2021-03-12 04:34] LABS: BASOPHILS % (AUTO) 0 % (0-1); EOSINOPHILS % (AUTO) 2 % (1-7); LYMPHOCYTES % (AUTO) 13 % (22-44); MEAN CORPUSCULAR HGB CONC 33.3 g/dL (33.2-36.2); MEAN PLATELET VOLUME 8.6 fL (7.4-10.4); MONOCYTES % (AUTO) 10 % (2-9); NEUTROPHILS % (AUTO) 74 % (42-75); PLATELET COUNT 75 x10^3/uL (130-400); RED BLOOD COUNT 3.12 x10^6/uL (4.38-5.82)
[2021-03-12 04:47] LABS: ANION GAP 9 mmol/L (5-15); CALCIUM 7.2 mg/dL (8.5-10.1); CHLORIDE 106 mmol/L (98-107); CREATININE 1.76 mg/dL (0.7-1.3)
[2021-03-12] MEDS: RIFAXIMIN 200 MG TABLET PO SCH (08:25)
[2021-03-12] MEDS: MULTIVITAMINS/MINERALS TABLET PO SCH (08:25)
[2021-03-12] MEDS ORDERED: SPIRONOLACTONE 100 MG TABLET PO SCH (09:00)
[2021-03-12] MEDS ORDERED: FUROSEMIDE 40 MG TABLET PO SCH (09:00)
[2021-03-12 10:00] VITALS: BP 136/78
== END 2021-03-12 12:10 | disposition home or self-care (01) | DRG 432 ==
LOC: ED 04:14 → EDIP 05:14 → 4EST 06:48
PROVIDERS: ADMIT Internal Medicine; ATTEND Family Medicine
PROC: 0W993ZZ Drainage of Right Pleural Cavity, Percutaneous Approach (ICD-10-PCS; 2021-03-10)
PROC: 0W9G3ZZ Drainage of Peritoneal Cavity, Percutaneous Approach (ICD-10-PCS; principal; 2021-03-11)
DX: K70.31 Alcoholic cirrhosis of liver with ascites (principal); J18.9 Pneumonia, unspecified organism; J96.01 Acute respiratory failure with hypoxia; E87.1 Hypo-osmolality and hyponatremia; E87.2 Acidosis; F10.239 Alcohol dependence with withdrawal, unspecified; J90 Pleural effusion, not elsewhere classified; N17.9 Acute kidney failure, unspecified; E11.9 Type 2 diabetes mellitus without complications; E66.01 Morbid (severe) obesity due to excess calories; E86.0 Dehydration; D64.9 Anemia, unspecified; I10 Essential (primary) hypertension; Z82.49 Family history of ischemic heart disease and other diseases of the circulatory system
CPT/HCPCS: 32555; 36415; 36600; 49083; 71045; 80053; 80069; 80320; 82042; 82803; 83615; 83735; 84100; 84484; 85025; 85610; 87040; 87070; 87205; 89051; 93005; 96374; G0378; J0456; J0696; J1644; J1650; J2405; J3411; J3475; G0480; J2060; J7030; J7050

== ENCOUNTER 2021-04-03 15:55 | Emergency (ER) | payer MEDICAID ==
[~2021-04-03] VITALS: Ht 167.6 cm; Wt 126.4 kg
--- NOTE | 2021-04-03 16:16 | NUR ---
FIRST CONTACT: HX OF LIVER CIRRHOSIS, ASCITES WITH PARACENTESIS. C/O INCREASED ABDOMINAL SWELLNIG AND INCREASED SOB. PT REQUESTING PARACENTESIS. PT TO ROOM WITH STEADY GAIT. POSTIONED TO COMFORT IN BED. VSS. NADN. AWAITING ORDERS.
--- NOTE | 2021-04-03 17:38 | NUR ---
pt resting in bed. vss. nadn. to go to ir for paracentesis
[2021-04-03 17:53] LABS: BASOPHILS % (AUTO) 1 % (0-1); EOSINOPHILS % (AUTO) 3 % (1-7); LYMPHOCYTES % (AUTO) 18 % (22-44); MEAN CORPUSCULAR HEMOGLOBIN 27.7 pg (27.5-34.5); MEAN CORPUSCULAR HGB CONC 33.6 g/dL (33.2-36.2); MEAN PLATELET VOLUME 7.1 fL (7.4-10.4); MONOCYTES % (AUTO) 8 % (2-9); NEUTROPHILS % (AUTO) 71 % (42-75); PLATELET COUNT 135 x10^3/uL (130-400); RED BLOOD COUNT 3.95 x10^6/uL (4.38-5.82)
[2021-04-03] MEDS ORDERED: LIDOCAINE-MPF 1%, 5ML ONE ×3 (18:04→18:44)
[2021-04-03 18:05] LABS: ALBUMIN 1.1 g/dL (3.4-5.0); ANION GAP 9 mmol/L (5-15); CALCIUM 7.1 mg/dL (8.5-10.1); CHLORIDE 104 mmol/L (98-107)
[2021-04-03 18:11] LABS: ALANINE AMINOTRANSFERASE 11 U/L (12-78); ALKALINE PHOSPHATASE 229 U/L (45-117); BILIRUBIN,TOTAL 0.6 mg/dL (0.2-1.0); CREATININE 1.23 mg/dL (0.7-1.3); TOTAL PROTEIN 4.7 g/dL (6.4-8.2)
--- NOTE | 2021-04-03 18:11 | NUR ---
PT TO IR FOR PARACENTESIS
[2021-04-03 18:14] LABS: INTERNATIONAL NORMALIZED RATIO 0.98 (0.93-1.1); PROTHROMBIN TIME 10.5 Seconds (9.6-11.5)
--- NOTE | 2021-04-03 18:52 | NUR ---
BEDSIDE REPORT TO KOMAL AUGUSTINE.
--- NOTE | 2021-04-03 19:00 | NUR ---
REPORT FROM O[facility] ASSUMED CARE OF PT, PT IN IR AT THIS TIME
[2021-04-03 20:49] VITALS: BP 128/82
== END 2021-04-03 20:51 ==
LOC: ED 20:21
DX: K70.31 Alcoholic cirrhosis of liver with ascites (principal); R06.00 Dyspnea, unspecified; R00.0 Tachycardia, unspecified; E11.9 Type 2 diabetes mellitus without complications; I10 Essential (primary) hypertension
CPT/HCPCS: 36415; 49083; 80053; 85025; 85610; 85730; 93005; 99285

== ENCOUNTER 2021-04-24 12:47 | Emergency (ER) | payer MEDICAID, OTHER ==
[~2021-04-24] VITALS: Ht 170.2 cm; Wt 133.3 kg
[2021-04-24] MEDS ORDERED: LIDOCAINE 1%, 10ML ONE (13:26)
[2021-04-24 13:47] LABS: BASOPHILS % (AUTO) 0 % (0-1); EOSINOPHILS % (AUTO) 2 % (1-7); LYMPHOCYTES % (AUTO) 10 % (22-44); MEAN CORPUSCULAR HEMOGLOBIN 27.9 pg (27.5-34.5); MEAN CORPUSCULAR HGB CONC 33.4 g/dL (33.2-36.2); MEAN PLATELET VOLUME 6.8 fL (7.4-10.4); MONOCYTES % (AUTO) 7 % (2-9); NEUTROPHILS % (AUTO) 81 % (42-75); PLATELET COUNT 129 x10^3/uL (130-400); RED BLOOD COUNT 3.95 x10^6/uL (4.38-5.82); RED CELL DISTRIBUTION WIDTH 16.4 % (9.4-14.8)
[2021-04-24 13:51] LABS: ALANINE AMINOTRANSFERASE 17 U/L (12-78); ANION GAP 11 mmol/L (5-15); CHLORIDE 94 mmol/L (98-107); CREATININE 1.37 mg/dL (0.7-1.3)
[2021-04-24 13:53] LABS: ALKALINE PHOSPHATASE 220 U/L (45-117); BILIRUBIN,TOTAL 0.6 mg/dL (0.2-1.0); INTERNATIONAL NORMALIZED RATIO 0.94 (0.93-1.1); PROTHROMBIN TIME 10.1 Seconds (9.6-11.5); TOTAL PROTEIN 5.1 g/dL (6.4-8.2)
[2021-04-24 16:25] VITALS: BP 138/88
== END 2021-04-24 17:16 | disposition left against medical advice (07) ==
LOC: ED 14:10
DX: K70.31 Alcoholic cirrhosis of liver with ascites (principal); E87.1 Hypo-osmolality and hyponatremia; D69.6 Thrombocytopenia, unspecified; D64.9 Anemia, unspecified; N28.9 Disorder of kidney and ureter, unspecified
CPT/HCPCS: 36415; 49083; 80053; 83690; 85025; 85610; 85730; 93005; 99285; J3490

== ENCOUNTER 2021-05-01 12:04 | Emergency (ER) | payer OTHER ==
[~2021-05-01] VITALS: Ht 170.2 cm; Wt 125.1 kg
[~2021-05-01 12:04] MED LIST changes: +POTA-143 PO; -POTA20TA6 PO
[2021-05-01 14:04] LABS: BASOPHILS % (AUTO) 1 % (0-1); EOSINOPHILS % (AUTO) 3 % (1-7); LYMPHOCYTES % (AUTO) 11 % (22-44); MEAN CORPUSCULAR HEMOGLOBIN 28.6 pg (27.5-34.5); MEAN CORPUSCULAR HGB CONC 33.5 g/dL (33.2-36.2); MEAN PLATELET VOLUME 7.2 fL (7.4-10.4); MONOCYTES % (AUTO) 10 % (2-9); NEUTROPHILS % (AUTO) 76 % (42-75); PLATELET COUNT 119 x10^3/uL (130-400); RED BLOOD COUNT 3.66 x10^6/uL (4.38-5.82); RED CELL DISTRIBUTION WIDTH 17.6 % (9.4-14.8)
[2021-05-01 14:14] LABS: ALBUMIN 1.1 g/dL (3.4-5.0); ANION GAP 9 mmol/L (5-15); CALCIUM 7.8 mg/dL (8.5-10.1); CHLORIDE 103 mmol/L (98-107)
[2021-05-01 14:19] LABS: ALANINE AMINOTRANSFERASE 18 U/L (12-78); ALKALINE PHOSPHATASE 183 U/L (45-117); BILIRUBIN,TOTAL 0.5 mg/dL (0.2-1.0); CREATININE 1.74 mg/dL (0.7-1.3); TOTAL PROTEIN 5.1 g/dL (6.4-8.2)
--- NOTE | 2021-05-01 15:00 | NUR ---
FIRE LIEUTENANT: PT TO ROOM FROM LOBBY
--- NOTE | 2021-05-01 15:31 | NUR ---
PT BIB SELF VIA POV. PER PT HE WAS SEEN IN ER LAST WEEK FOR "LOW SODIUM AND HAD PARACENTESIS. THEY WANTED TO ADMIT ME BUT I LEFT AMA." PT STATES HE HAS LIVER PROBLEMS. PT RESTING IN [facility], MONITORING IN PLACE, FERMIN AT THIS TIME, [id number].
[2021-05-01] MEDS ORDERED: SODIUM CHLORIDE 0.9% 1,000 ML IV ONE (16:00)
[2021-05-01] MEDS ORDERED: LIDOCAINE 1%, 10ML ONE (16:52)
[2021-05-01 18:13] VITALS: BP 190/111
--- NOTE | 2021-05-01 18:45 | NUR ---
PT AMBULATING STEADILY. IV DC'D. PT VERBALIZED UNDERSTANDING OF DISCHARGE INSTRUCTIONS AND EDUCATION.
== END 2021-05-01 19:04 | disposition home or self-care (01) ==
LOC: ED 16:16
DX: K70.31 Alcoholic cirrhosis of liver with ascites (principal); E87.1 Hypo-osmolality and hyponatremia; I10 Essential (primary) hypertension; E11.9 Type 2 diabetes mellitus without complications
CPT/HCPCS: 36415; 49083; 71045; 80053; 83690; 83880; 85025; 93005; 96360; 99285; J3490; J7030

== ENCOUNTER 2021-05-14 17:46 | Emergency (ER) | payer OTHER ==
[~2021-05-14] VITALS: Ht 170.2 cm; Wt 125.8 kg
[2021-05-14 20:18] LABS: BASOPHILS % (AUTO) 1 % (0-1); EOSINOPHILS % (AUTO) 6 % (1-7); LYMPHOCYTES % (AUTO) 13 % (22-44); MEAN CORPUSCULAR HGB CONC 32.7 g/dL (33.2-36.2); MEAN PLATELET VOLUME 7.6 fL (7.4-10.4); MONOCYTES % (AUTO) 6 % (2-9); NEUTROPHILS % (AUTO) 74 % (42-75); PLATELET COUNT 185 x10^3/uL (130-400); RED BLOOD COUNT 3.53 x10^6/uL (4.38-5.82); RED CELL DISTRIBUTION WIDTH 17.1 % (9.4-14.8)
[2021-05-14 20:29] LABS: ALANINE AMINOTRANSFERASE 15 U/L (12-78); ALBUMIN 1.1 g/dL (3.4-5.0); ANION GAP 8 mmol/L (5-15); CALCIUM 7.3 mg/dL (8.5-10.1); CHLORIDE 107 mmol/L (98-107); CREATININE 1.51 mg/dL (0.7-1.3)
[2021-05-14 20:31] LABS: ALKALINE PHOSPHATASE 205 U/L (45-117); BILIRUBIN,TOTAL 0.4 mg/dL (0.2-1.0); TOTAL PROTEIN 5.2 g/dL (6.4-8.2)
--- NOTE | 2021-05-14 20:53 | NUR ---
PT C/O OF SWOLLEN BELLY DUE TO CIRRHOSIS. PT HX OF ASCITES AND PARACENTESIS. PT STOMACH APPEARS VERY SWOLLEN AND ROUNDED. PT STATES HARD BREATHE DUE TO PRESSURE OF BELLY. ATTACHED TO CARD/SP02/BP MONITORS. MABEL. FERMIN. BED IN LOW, RAILS ENGAGED, CALL LIGHT ON LAP. WCTRM
[2021-05-14] MEDS ORDERED: ALBUMIN HUMAN 25% 100 ML IV ONE (21:00)
[2021-05-14] MEDS ORDERED: SODIUM CHLORIDE FLUSH 10ML SYR IVF ONE (21:00)
--- NOTE | 2021-05-14 21:13 | NUR ---
PT RESTING IN BED. NADN. AWAITING PARACENTESIS PROCEDURE.
[2021-05-14] MEDS ORDERED: LIDOCAINE-MPF 1%, 5ML ONE (21:16)
--- NOTE | 2021-05-14 21:17 | NUR ---
US TECH AT BEDSIDE.
--- NOTE | 2021-05-14 21:51 | NUR ---
SENT YELLOW SLIP TO LAB
--- NOTE | 2021-05-14 22:03 | NUR ---
Patient is resting comfortably in bed. Bed in lowest, rails engaged, call light on lap. Vital Signs within normal limits. WCTM. NADN
[2021-05-14 22:50] VITALS: BP 142/92
--- NOTE | 2021-05-14 23:05 | NUR ---
Patient/Caregiver given discharge instructions and they have confirmed that they understand the instructions. Patient ambulatory with steady gait. NAD, all questions answered appropriately, denies additional needs at this time. No personal belongings left in room after discharge.
== END 2021-05-14 23:06 | disposition home or self-care (01) ==
LOC: ED 21:17
DX: K70.31 Alcoholic cirrhosis of liver with ascites (principal); R06.02 Shortness of breath; I10 Essential (primary) hypertension; E11.9 Type 2 diabetes mellitus without complications
CPT/HCPCS: 36415; 49083; 80053; 85025; 93005; 96365; 99285; P9047

== ENCOUNTER 2021-05-22 08:08 | Emergency (ER) | payer OTHER ==
[~2021-05-22] VITALS: Ht 170.2 cm; Wt 127.8 kg
--- NOTE | 2021-05-22 09:58 | NUR ---
PT TO ROOM FROM LOBBY. NAD.
[2021-05-22 10:10] VITALS: BP 147/98
== END 2021-05-22 10:32 | disposition home or self-care (01) ==
LOC: ED 08:55
DX: K70.31 Alcoholic cirrhosis of liver with ascites (principal); I10 Essential (primary) hypertension
CPT/HCPCS: 49083; 99285

== ENCOUNTER 2021-06-10 12:36 | Emergency (ER) | payer OTHER ==
[~2021-06-10] VITALS: Ht 170.2 cm; Wt 128.1 kg
--- NOTE | 2021-06-10 13:45 | NUR ---
dinkey driver: Pt ambulatory to room from lobby at this time.
--- NOTE | 2021-06-10 13:57 | NUR ---
ASSUMED CARE OF PATIENT. PATIENT REPORTS HE HAS LIVER DISEASE AND NEEDS TO HAVE THE FLUID DRAINED FROM HIS ABD. PT'S ABD IS DISTENDED. VS STABLE. FRIEND AT BEDSIDE. CALL LIGHT IN PLACE. WILL CONTINUE TO MONITOR.
[2021-06-10] MEDS ORDERED: LIDOCAINE 1%, 10ML ONE ×2 (14:57→16:15)
--- NOTE | 2021-06-10 15:03 | NUR ---
PT WENT TO IR
--- NOTE | 2021-06-10 16:05 | NUR ---
pt in IR
--- NOTE | 2021-06-10 17:11 | NUR ---
PT BACK FROM IR. VS STABLE. CALL LIGHT IN PLACE. WILL CONTINUE TO MONITOR.
[2021-06-10 17:41] VITALS: BP 137/87
== END 2021-06-10 17:58 | disposition home or self-care (01) ==
LOC: ED 17:56
DX: K70.31 Alcoholic cirrhosis of liver with ascites (principal); I10 Essential (primary) hypertension; E11.9 Type 2 diabetes mellitus without complications
CPT/HCPCS: 49083; 99285; J3490